=== PATIENT | male | born 1955 | race Caucasian/White ===

== ENCOUNTER 2020-11-22 05:31 | Outpatient (RCR) | payer MEDICARE ==
[~2020-11-22] VITALS: Ht 165.1 cm; Wt 95.3 kg
[~2020-11-22 05:31] MED LIST: ACET650T14 PO; AMLO-250 PO; ATOR40TA70 PO; CHOL4PAC3 PO; DAPA5TAB PO; HYDR25TA4 PO; INSU100I14 SQ; INSU100I34 SQ; LIRA0.6P3 SQ; LISI40TA9 PO; METF-478 PO
== END 2020-11-22 12:05 | disposition home or self-care (01) ==
LOC: PREOP 05:31
PROVIDERS: ATTEND Surgery
DX: Z01.812 Encounter for preprocedural laboratory examination (principal); R19.4 Change in bowel habit; R19.5 Other fecal abnormalities; Z20.822 Contact with and (suspected) exposure to COVID-19
CPT/HCPCS: 87635

== ENCOUNTER 2020-11-26 06:45 | Day surgery (SDC) | payer MEDICARE ==
[~2020-11-26] VITALS: Ht 165.1 cm; Wt 95.3 kg
[2020-11-26] MEDS ORDERED: LACTATED RINGERS 1,000 ML IV ONE (06:51)
[2020-11-26] MEDS ORDERED: PROPOFOL INJECTION 50 ML IV ONE (07:00)
[2020-11-26] MEDS ORDERED: MIDAZOLAM 2 MG/2 ML (VERSED) VIAL ONE (07:00)
[2020-11-26] MEDS ORDERED: LACTATED RINGERS 1,000 ML IV STA (07:12)
[2020-11-26 07:21] VITALS: BP 158/89
--- NOTE | 2020-11-26 07:44 | Progress Note-Pre Operative ---
Pre-Operative Progress Note H&P Reviewed The H&P was reviewed, patient examined and no changes noted. Date Seen by Provider: Nov 26, 2020 Time Seen by Provider: 07:44 Date H&P Reviewed: Nov 26, 2020 Time H&P Reviewed: 07:44 Pre-Operative Diagnosis: change in bowel habits occult + stool SHARRI ADAMS DO Nov 26, 2020 07:44
[2020-11-26 08:20] VITALS: BP 99/55
--- NOTE | 2020-11-26 08:22 | Progress Note-Post Operative ---
Post-Operative Progess Note Surgeon (s)/Plastic Welder (s) Surgeon SHARRI ADAMS DO Plastic Welder: na Pre-Operative Diagnosis change in bowel habits occult + stool Post-Operative Diagnosis diverticulosis Procedure & Operative Findings Date of Procedure 11/26/20 Procedure Performed/Findings colonoscopy Anesthesia Type per blood donor unit assistant Estimated Blood Loss Estimated blood loss (mL): none Specimens/Packing Specimens Removed na SHARRI ADAMS DO Nov 26, 2020 08:22
--- NOTE | 2020-11-26 08:24 | Discharge Inst-Simple/Standard ---
Discharge Inst-Standard Patient Instructions/Follow Up Plan of Care/Instructions/FU: repeat colonoscopy in 10 years, any issues before that be seen at that time. If family history of colon cancer need repeat in 5 years. High fiber diet. Activity as Tolerated: Yes Discharge Diet: Regular Diet (high fiber) SHARRI ADAMS DO Nov 26, 2020 08:24
[2020-11-26 08:25] VITALS: BP_SYST 100; BP_SYST 111; BP_DIAS 53; BP_DIAS 58
[2020-11-26 08:55] VITALS: BP 118/74
[2020-11-26 09:05] VITALS: BP 118/74
--- NOTE | 2020-11-26 10:57 | Anesthesia-General Post-Op ---
MAC Patient Condition Mental Status/LOC: Same as Preop Cardiovascular: Satisfactory Nausea/Vomiting: Absent Respiratory: Satisfactory Pain: Controlled Complications: Absent Post Op Complications Complications None Follow Up Care/Instructions Patient Instructions None needed. Anesthesiology Discharge Order Discharge Order Patient is doing well, no complaints, stable vital signs, no apparent adverse anesthesia problems. No complications reported per nursing. SHAWN SILVERMAN CRNA Nov 26, 2020 10:57
--- NOTE | 2020-11-26 12:55 | OPERATIVE REPORT ---
DATE OF SERVICE: 11/26/2020 PREOPERATIVE DIAGNOSIS: Change in bowel habits, occult positive stool. POSTOPERATIVE DIAGNOSIS: Diverticulosis. PROCEDURE: Colonoscopy. SURGEON: Sharri Walls DO ANESTHESIA: Per TRAFFIC ENUMERATOR. ESTIMATED BLOOD LOSS: None. COMPLICATIONS: None. INDICATIONS: The patient is a 65-year-old male with occult positive stool and some change in bowel habits. He understands risks and benefits of procedure and wished to proceed with procedure. Consent was signed in the chart. DESCRIPTION OF PROCEDURE: The patient was taken to the endoscopy suite, placed in left lateral recumbent position. Timeout was performed. A digital rectal exam was performed. There were no palpable polyps, masses or ulcerations. Scope was inserted into the rectum, advanced all the way to the cecum with minimal difficulty. Prep was adequate with lots of irrigation and suction. There were no polyps, masses or ulcerations within the cecum, ascending, transverse and descending colon. Within the sigmoid colon, minimal amount of diverticulosis was present. Scope was then continuously retracted back into the rectum where it was also retroflexed noting no other pathology. Scope was returned to its normal position, slowly withdrawn until completely removed. The patient tolerated procedure well without any complications, taken to recovery room in stable condition. RECOMMENDATIONS: The patient recommended high fiber diet. If any change in condition, he should be reevaluated at that time. Otherwise, he will need repeat colonoscopy in 10 years unless family history of colon cancer, which will then be 5 years. Job ID: [id number] DocumentID: [id number] Dictated Date: 11/26/2020 08:26:29 Buying Intern Date: 11/26/2020 12:55:03 Dictated By: SHARRI WALLS DO
== END 2020-11-26 09:05 | disposition home or self-care (01) ==
LOC: ENDO 06:45
PROVIDERS: ATTEND Surgery
DX: K57.30 Diverticulosis of large intestine without perforation or abscess without bleeding (principal); I10 Essential (primary) hypertension; E11.9 Type 2 diabetes mellitus without complications; E66.9 Obesity, unspecified; Z68.35 Body mass index [BMI] 35.0-35.9, adult; Z79.899 Other long term (current) drug therapy; Z79.4 Long term (current) use of insulin; Z88.8 Allergy status to other drugs, medicaments and biological substances

== ENCOUNTER → 2021-07-30 | Outpatient (CLI) | payer MEDICARE ==
[~2021-07-30] VITALS: Ht 165 cm; Wt 101.0 kg
[~2021-07-30] MED LIST changes: +REGADENOSON 0.4 MG/5 ML SYR (LEXISCAN) IV ONE
[2021-07-30] MEDS: CATHETER FLUSH 10 ML SYR IV PRN ×2 (12:18→13:21)
[2021-07-30 13:20] VITALS: BP 180/93
--- NOTE | 2021-07-30 15:29 | Cardiology Stress Test Report ---
Stress Test Report Date of Procedure/Referring: Date of Procedure: Jul 30, 2021 PCP Lorie Busby MD Admitting Physician Gretel Jaime DO Indications: A fib Baseline Heart Rate: 79 Baseline Blood Pressure: Blood Pressure Systolic: 180 Blood Pressure Diastolic: 93 Baseline Vitals Vital Signs Date Time Temp Pulse Resp B/P (MAP) Pulse Ox O2 Delivery O2 Flow Rate FiO2 07/30/21 13:20 97 16 180/93 (122) 98 Room Air Baseline EKG: Baseline EKG: NSR Summary After explaining the procedure to the patient, he signed a consent and then brought to the stress nuclear laboratory. Patient received 0.4 mg Lexiscan for stress test, ECG, heart rate and blood pressure were monitored continuously. Resting and stress dose of radio tracer were injected, imaging was acquired and reviewed in short axis, horizontal long axis and vertical long axis views. TID: 1.17 SSS: 7 SDS: 3 EF: 59 1. Patient tolerated Lexiscan well 2. EKG during test showed sinus rhythm with frequent atrial premature contractions. 3. Diaphragmatic attenuation with mild decrease uptake involving the mid to apical inferior wall and inferolateral wall with mild reversibility 4. Normal left ventricular size, EF 59% LORIE BUSBY MD Jul 30, 2021 15:29
== END ==
LOC: CARD 12:30
PROVIDERS: ATTEND Internal Medicine Cardiovascular Disease
DX: I48.91 Unspecified atrial fibrillation (principal); I10 Essential (primary) hypertension; I25.10 Atherosclerotic heart disease of native coronary artery without angina pectoris
CPT/HCPCS: 78452; 93017; A9502

== ENCOUNTER 2021-08-13 09:00 | Day surgery (SDC) | payer MEDICARE ==
[~2021-08-13] VITALS: Ht 165.1 cm; Wt 102.9 kg
[2021-08-13] VITALS (11 sets, daily range): BP systolic 104–180; BP diastolic 75–116
[2021-08-13 07:30] LABS: HEMATOCRIT 46 % (40-54); HEMOGLOBIN 15.1 g/dL (13.3-17.7); MEAN CORPUSCULAR HEMOGLOBIN 30 pg (25-34); MEAN CORPUSCULAR HGB CONC 33 g/dL (32-36); MEAN CORPUSCULAR VOLUME 92 fL (80-99); MEAN PLATELET VOLUME 11.5 fL (9.0-12.2); PLATELET COUNT 266 10^3/uL (130-400); WHITE BLOOD COUNT 11.8 10^3/uL (4.3-11.0)
[2021-08-13 07:39] LABS: ALBUMIN 4.1 GM/DL (3.2-4.5); POTASSIUM 4.2 MMOL/L (3.6-5.0)
[2021-08-13 07:40] LABS: CALCIUM 9.1 MG/DL (8.5-10.1)
[2021-08-13 07:41] LABS: TOTAL PROTEIN 6.9 GM/DL (6.4-8.2)
[2021-08-13 07:43] LABS: BILIRUBIN,TOTAL 0.4 MG/DL (0.1-1.0)
[2021-08-13 07:45] LABS: CREATININE SERUM 1.51 MG/DL (0.60-1.30)
--- NOTE | 2021-08-13 07:47 | Diagnostic Imaging Report ---
Indication: Hypertension. Chest pain. FINDINGS: Portable chest. The lungs are well-aerated and clear. Heart is not enlarged. No pulmonary edema or hilar adenopathy. No pneumothorax or pleural effusion. No bony abnormalities. IMPRESSION: Normal portable chest. Dictated by: Dictated on workstation # [id number]
[2021-08-13 08:15] LABS: PROTHROMBIN TIME PATIENT 13.4 SEC (12.2-14.7)
--- NOTE | 2021-08-13 08:40 | Conscious Sedation/ASA ---
Conscious Sedation Pre-Proced Time 08:40 ASA Score 3 For ASA 3 and 4: Consider anesthesia and medical clearance. Also, for patients with a history of failed moderate sedation consider anesthesia. Airway Lungs Heart ASA score ASA 1: a normal healthy patient ASA 2: a patient with a mild systemic disease (mid diabetes, controlled hypertension, obesity x ASA 3: a patient with a severe systemic disease that limits activity (angina, COPD, prior Myocardial infarction) ASA 4: a patient with an incapacitating disease that is a constant threat to life (CHF, renal failure) ASA 5: a moribund patient not expected to survive 24 hrs. (ruptured aneurysm) ASA 6: a declared brain- patient whose organs are being harvested. For emergent operations, add the letter E after the classification Mallampati Classification Grade 3 Sedation Plan Analgesia, Amnesia, Plan communicated to team members, Discussed options with patient/fam, Discussed risks with patient/fam The patient is an appropriate candidate to undergo the planned procedure, sedation, and anesthesia. The patient immediately re-assessed prior to indication. LORIE CLEMONS MD Aug 13, 2021 08:40
[~2021-08-13 09:00] MED LIST changes: +APIX5TAB PO; +DILT180C85 PO; +FURO20TA4 PO; +HEParin (CATH LAB) 2,000 ML IV ONE; +HEParin 1000 UNIT/ML (10ML VIAL) FOR BOLUS ONE; +LIDOCAINE 1% INJ 20 ML 20 ML VIAL ONE; +METO-351 PO; +MIDAZOLAM 5 MG/5 ML (VERSED) VIAL ONE; +NITRO DRIP 25000 MCG/D5W 250 ML IV ONE; +NS IV 1000 ML 1,000 ML IV SCH; +NS IV 1000 ML 1,000 ML ONE; +POTA10CA43 PO; -REGADENOSON 0.4 MG/5 ML SYR (LEXISCAN) IV ONE; +VERAPAMIL 5 MG/2 ML (CALAN) VIAL IV ONE; +fentaNYL INJ 100 MCG/2 ML AMP ONE
[2021-08-13] MEDS ORDERED: NS IV 1000 ML 1,000 ML ONE (09:09)
[2021-08-13] MEDS ORDERED: ASPIRIN 325 MG (5 GR) TABLET ONE (09:15)
[2021-08-13] MEDS ORDERED: CLOPIDOGREL 300 MG (PLAVIX) TABLET PO ONE (09:15)
--- NOTE | 2021-08-13 09:23 | Cardiac Cath Report ---
Cardiac Cath Report Physician (s)/Ply Splicer (s) Physician LORIE CLEMONS MD Pre-Procedure Diagnosis Pre-Procedure Diagnosis: Coronary artery disease Post-Procedure Note Name of Procedure: Coronary angiogram Stenting to the right coronary artery Findings/Procedure Note PROCEDURE NOTE: 66-year-old gentleman with a history of paroxysmal atrial fibrillation, hypertension, hyperlipidemia, diabetes mellitus. Had an abnormal stress test with inferior wall ischemia, scheduled for cardiac catheterization possible PTCA. After explaining the procedure to the patient, all pros and cons were explained, all questions were answered. The patient signed the consent and then he was placed on the cardiac catheterization laboratory. Groin was prepped SL fashion local anesthesia was used. Sheath placed in the right radial artery, Amberg catheter was advanced to the aorta, I was unable to cross the aortic valve, intubated the right and left coronary system, angiogram was done. Patient was noted to have severe stenosis at the mid right coronary artery and proximal LAD, I had difficulty intubating the left coronary system with the catheter from the radial approach. I exchanged the catheter and used 6 [place] FR guide. Given a total of 6000 units of heparin, BMW wire was advanced and parked in the distal right coronary artery then I proceeded with primary stenting with deployment of skypoint stent 3.5 x 15 mm postdilated with noncompliant 4.0 balloon with excellent results. Due to his borderline renal insufficiency and difficulty accessing the left coronary system from the radial approach I decided to stage the procedure and bring him back for groin access and intervention on the LAD At the end of the procedure the sheath was removed. Vascular band was used FINDINGS: Hemodynamics LV was not measured Aorta 95/61 mean of 58 ANATOMY: Left Main is free of obstructive disease Left Anterior Descending has moderate to severe lesion at the proximal LAD followed by mild aneurysmal dilatation, nonobstructive disease distally Left Circumflex has mild disease nonobstructive disease Right Coronary Artery is dominant artery with severe stenosis at the midportion successful stenting using skypoint stent 3.5 x 15 mm postdilated to 4.0 mm with noncompliant balloon CONCLUSION: 1. Severe stenosis at the mid right coronary artery with successful primary stenting using adis point stent 3.5 x 15 mm postdilated to 4.0 mm noncompliant balloon with excellent results 2. Moderate to severe stenosis in the proximal LAD followed by mild aneurysmal dilatation will be staged for later intervention 3. Mild disease in the circumflex artery DISCUSSION AND RECOMMENDATION: Patient is holding Metformin, will continue to hold and planning for intervention on the LAD at a later point preferably with a groin access. Anesthesia Type: Conscious Sedation Estimated blood loss (mL): 15 ml Contrast Amount: 59 ml Total Radiation Dose: 857 mGy Post-Procedure Diagnosis Post-operative diagnosis: Coronary artery disease Paroxysmal atrial fibrillation Hypertension Hyperlipidemia Diabetes mellitus LORIE CLEMONS MD Aug 13, 2021 09:23
[2021-08-13] MEDS ORDERED: NS IV 1000 ML 1,000 ML IV SCH (09:30)
[2021-08-13] MEDS ORDERED: PANT40SU PO (09:32)
[2021-08-13] MEDS ORDERED: METF-478 PO (09:32)
[2021-08-13] MEDS ORDERED: CLOP75TA28 PO (09:32)
[2021-08-13] MEDS ORDERED: ASPI-1238 PO (09:32)
--- NOTE | 2021-08-13 09:33 | Discharge Inst-Post CATH ---
Discharge Inst-CATH/EP Problems Reviewed?: Yes Post Cardiac Cath/EP D/C Inst Follow Up/Plan Hold Metformin for [address] Busby's office next week <b>CARDIAC CATH/EP PROCEDURE DISCHARGE INSTRUCTIONS</b> ACTIVITY * Go Home directly and rest. * Limit activity of the leg (or wrist if it was used) for 7 days including aerobics, swimming, jogging, bicycling, etc. * Restrict stair-climbing for 7 days if possible, if not, climb up with your non-cath leg, then bring together on the same step. * Avoid lifting, pushing, pulling or excessive movement of the affected extremity for 7 days. * Customary sexual activity may be resumed after 2 days-use caution not to use a position that strains or causes pain to the affected extremity. * No driving for 24 hours. * NO SMOKING. * Avoid straining for bowel movements for 7 days. * Gentle walking on level ground is allowed. * Returning to work will depend on the type of procedure and the results. Your doctor will discuss this with you. CALL YOUR DOCTOR FOR ANY OF THE FOLLOWING: *If bleeding from the puncture site occurs- Apply gentle pressure to site with clean cloth and call your doctor or EMS. * If a knot or lump forms under the skin, increases in size, or causes pain. * If bruising appears to be worsening or moving further down your leg instead of disappearing. * Temperature above 101 F. CARE OF YOUR GROIN INCISION; * Bruising or purple discoloration of the skin near the puncture site is common. * You may shower only, no bathtub bathing for 5 days. Be careful to avoid slipping as your leg may feel stiff. * If a closure device was used on your femoral artery, please see the attached guide regarding care of the device and your leg. * Leave dressing on FOR 24 hours. CARE OF YOUR WRIST INCISION; * Bruising or purple discoloration of the skin near the puncture site is common. * You may shower. * DO NOT submerge wrist. * Leave dressing on FOR 24 hours. LORIE BUSBY MD Aug 13, 2021 09:33
[2021-08-13] MEDS ORDERED: inSUlin ASPART (NovoLOG) 1 UNIT/0.01 ML (CHARGE PER UNIT) SC SCH (18:00)
[2021-08-13] MEDS ORDERED: APIXABAN 5 MG (ELIQUIS) TABLET PO SCH (21:00)
[2021-08-13] MEDS ORDERED: NON-FORMULARY MEDICATION 1 EA EA (Insulin Aspart (Novolog Flexpen) 20 UNITS) SQ SCH (21:00)
[2021-08-14] MEDS ORDERED: lisINopril 40 MG (PRINIVIL) TABLET PO SCH (09:00)
[2021-08-14] MEDS ORDERED: ASPIRIN E.C. 81 MG (ECOTRIN) TAB PO SCH (09:00)
[2021-08-14] MEDS ORDERED: FUROSEMIDE 20 MG (LASIX) TAB PO SCH (09:00)
[2021-08-14] MEDS ORDERED: NON-FORMULARY MEDICATION 1 EA EA (Dapagliflozin Propanediol (Farxiga) 5 MG) PO SCH (09:00)
[2021-08-14] MEDS ORDERED: NON-FORMULARY MEDICATION 1 EA EA (Liraglutide (Victoza 3-Pak) 1.8 MG) SQ SCH (09:00)
[2021-08-14] MEDS ORDERED: CLOPIDOGREL 75 MG (PLAVIX) TABLET PO SCH (09:00)
== END 2021-08-13 15:15 | disposition home or self-care (01) ==
LOC: CATH 09:00 → CSD 09:37 → CATH 15:15
PROVIDERS: ATTEND Internal Medicine Cardiovascular Disease
DX: I25.10 Atherosclerotic heart disease of native coronary artery without angina pectoris (principal); I48.0 Paroxysmal atrial fibrillation; I10 Essential (primary) hypertension; E78.5 Hyperlipidemia, unspecified; E11.9 Type 2 diabetes mellitus without complications; F80.9 Developmental disorder of speech and language, unspecified; Z79.899 Other long term (current) drug therapy; Z79.84 Long term (current) use of oral hypoglycemic drugs; Z79.4 Long term (current) use of insulin; Z83.3 Family history of diabetes mellitus
CPT/HCPCS: 71045; 80053; 80061; 85027; 85347; 85610; 85730; 87081; 93454; C1725; C1769; C1874; C1887; C1894; C9600; 36415

== ENCOUNTER → 2021-08-25 | Outpatient (CLI) | payer MEDICARE ==
[~2021-08-25] MED LIST changes: +ASPI-1238 PO; +CLOP75TA28 PO; -HEParin (CATH LAB) 2,000 ML IV ONE; -HEParin 1000 UNIT/ML (10ML VIAL) FOR BOLUS ONE; -LIDOCAINE 1% INJ 20 ML 20 ML VIAL ONE; -MIDAZOLAM 5 MG/5 ML (VERSED) VIAL ONE; -NITRO DRIP 25000 MCG/D5W 250 ML IV ONE; -NS IV 1000 ML 1,000 ML IV SCH; -NS IV 1000 ML 1,000 ML ONE; +PANT40SU PO; -VERAPAMIL 5 MG/2 ML (CALAN) VIAL IV ONE; -fentaNYL INJ 100 MCG/2 ML AMP ONE
== END ==
LOC: CARD 13:30
PROVIDERS: ATTEND Internal Medicine Cardiovascular Disease
DX: I11.9 Hypertensive heart disease without heart failure (principal)
CPT/HCPCS: 93306

== ENCOUNTER 2021-09-24 10:00 | Day surgery (SDC) | payer MEDICARE ==
[~2021-09-24] VITALS: Ht 165.1 cm; Wt 102.5 kg
[2021-09-24] VITALS (10 sets, daily range): BP systolic 122–169; BP diastolic 71–103
[2021-09-24 08:12] LABS: HEMATOCRIT 45 % (40-54); HEMOGLOBIN 14.6 g/dL (13.3-17.7); MEAN CORPUSCULAR HEMOGLOBIN 30 pg (25-34); MEAN CORPUSCULAR HGB CONC 33 g/dL (32-36); MEAN CORPUSCULAR VOLUME 93 fL (80-99); MEAN PLATELET VOLUME 10.9 fL (9.0-12.2); PLATELET COUNT 246 10^3/uL (130-400); WHITE BLOOD COUNT 8.9 10^3/uL (4.3-11.0)
[2021-09-24 08:13] LABS: BILIRUBIN,URINE NEGATIVE (NEGATIVE); CLARITY,URINE CLEAR; COLOR,URINE YELLOW; GLUCOSE, URINE (UA) 3+ (NEGATIVE); KETONES,URINE NEGATIVE (NEGATIVE); LEUKOCYTE ESTERASE ,URINE NEGATIVE (NEGATIVE); NITRITE,URINE NEGATIVE (NEGATIVE); PROTEIN,URINE NEGATIVE (NEGATIVE)
[2021-09-24 08:19] LABS: BACTERIA,URINE NEGATIVE /HPF; RBC,URINE RARE /HPF; SQUAMOUS EPITHELIAL CELL,UR RARE /HPF; WBC,URINE RARE /HPF
[2021-09-24 08:23] LABS: PROTHROMBIN TIME PATIENT 13.8 SEC (12.2-14.7)
[2021-09-24 08:30] LABS: ALBUMIN 4.1 GM/DL (3.2-4.5); BILIRUBIN,TOTAL 0.5 MG/DL (0.1-1.0); CALCIUM 9.2 MG/DL (8.5-10.1); CREATININE SERUM 1.34 MG/DL (0.60-1.30)
--- NOTE | 2021-09-24 08:36 | Diagnostic Imaging Report ---
Indication: Preoperative evaluation prior to coronary angioplasty. AP view of the chest is obtained with comparison made to study of 08/13/2021. FINDINGS: Heart size and pulmonary vascularity are within normal limits, and the lungs are clear, bilaterally. IMPRESSION: Unremarkable chest. Dictated by: Dictated on workstation # [id number]
--- NOTE | 2021-09-24 09:50 | Conscious Sedation/ASA ---
Conscious Sedation Pre-Proced Time 09:49 ASA Score 3 For ASA 3 and 4: Consider anesthesia and medical clearance. Also, for patients with a history of failed moderate sedation consider anesthesia. Airway Lungs Heart ASA score ASA 1: a normal healthy patient ASA 2: a patient with a mild systemic disease (mid diabetes, controlled hypertension, obesity x ASA 3: a patient with a severe systemic disease that limits activity (angina, COPD, prior Myocardial infarction) ASA 4: a patient with an incapacitating disease that is a constant threat to life (CHF, renal failure) ASA 5: a moribund patient not expected to survive 24 hrs. (ruptured aneurysm) ASA 6: a declared brain- patient whose organs are being harvested. For emergent operations, add the letter E after the classification Mallampati Classification Grade 3 Sedation Plan Analgesia, Amnesia, Plan communicated to team members, Discussed options with patient/fam, Discussed risks with patient/fam The patient is an appropriate candidate to undergo the planned procedure, sedation, and anesthesia. The patient immediately re-assessed prior to indication. LORIE CLEMONS MD Sep 24, 2021 09:50
[~2021-09-24 10:00] MED LIST changes: +DAPA10TA PO; +FURO40TA4 PO; +HEParin (CATH LAB) 2,000 ML IV ONE; +LIDOCAINE 1% INJ 20 ML 20 ML VIAL ONE; +NS IV 1000 ML 1,000 ML IV SCH; +PANT40TA52 PO; +POTA-51 PO
[2021-09-24] MEDS ORDERED: fentaNYL INJ 100 MCG/2 ML AMP ONE (11:18)
[2021-09-24] MEDS ORDERED: VERAPAMIL 5 MG/2 ML (CALAN) VIAL IV ONE (11:18)
[2021-09-24] MEDS ORDERED: MIDAZOLAM 5 MG/5 ML (VERSED) VIAL ONE (11:19)
[2021-09-24] MEDS ORDERED: NITRO DRIP 25000 MCG/D5W 250 ML IV ONE (11:19)
[2021-09-24] MEDS ORDERED: HEParin 1000 UNIT/ML (10ML VIAL) FOR BOLUS ONE (11:19)
[2021-09-24] MEDS ORDERED: ADENOSINE 90 MG/30 ML (ADENOSCAN) VIAL IV ONE (11:49)
[2021-09-24] MEDS ORDERED: CLOPIDOGREL 300 MG (PLAVIX) TABLET PO ONE (12:14)
[2021-09-24] MEDS ORDERED: ASPIRIN 325 MG (5 GR) TABLET ONE (12:14)
[2021-09-24] MEDS ORDERED: METF-478 PO (12:23)
--- NOTE | 2021-09-24 12:24 | Discharge Inst-Post CATH ---
Discharge Inst-CATH/EP Problems Reviewed?: Yes Post Cardiac Cath/EP D/C Inst Follow Up/Plan Hold Metformin for [address] Busby's office in 2 to 4 weeks <b>CARDIAC CATH/EP PROCEDURE DISCHARGE INSTRUCTIONS</b> ACTIVITY * Go Home directly and rest. * Limit activity of the leg (or wrist if it was used) for 7 days including aerobics, swimming, jogging, bicycling, etc. * Restrict stair-climbing for 7 days if possible, if not, climb up with your non-cath leg, then bring together on the same step. * Avoid lifting, pushing, pulling or excessive movement of the affected extremity for 7 days. * Customary sexual activity may be resumed after 2 days-use caution not to use a position that strains or causes pain to the affected extremity. * No driving for 24 hours. * NO SMOKING. * Avoid straining for bowel movements for 7 days. * Gentle walking on level ground is allowed. * Returning to work will depend on the type of procedure and the results. Your doctor will discuss this with you. CALL YOUR DOCTOR FOR ANY OF THE FOLLOWING: *If bleeding from the puncture site occurs- Apply gentle pressure to site with clean cloth and call your doctor or EMS. * If a knot or lump forms under the skin, increases in size, or causes pain. * If bruising appears to be worsening or moving further down your leg instead of disappearing. * Temperature above 101 F. CARE OF YOUR GROIN INCISION; * Bruising or purple discoloration of the skin near the puncture site is common. * You may shower only, no bathtub bathing for 5 days. Be careful to avoid slipping as your leg may feel stiff. * If a closure device was used on your femoral artery, please see the attached guide regarding care of the device and your leg. * Leave dressing on FOR 24 hours. CARE OF YOUR WRIST INCISION; * Bruising or purple discoloration of the skin near the puncture site is common. * You may shower. * DO NOT submerge wrist. * Leave dressing on FOR 24 hours. LORIE BUSBY MD Sep 24, 2021 12:24
--- NOTE | 2021-09-24 12:29 | Cardiac Cath Report ---
Cardiac Cath Report Physician (s)/Quality Systems Manager (s) Physician LORIE CLEMONS MD Pre-Procedure Diagnosis Pre-Procedure Diagnosis: Coronary artery disease Post-Procedure Note Procedure Start Date: Sep 24, 2021 Name of Procedure: Left heart catheterization FFR to the LAD Primary stenting to the proximal LAD Findings/Procedure Note PROCEDURE NOTE: 66 years old gentleman with history of coronary artery disease underwent stenting to the right coronary artery, had a borderline lesion in the LAD, due to his underlying renal insufficiency I decided to stage the procedure and bring him back for FFR and possible stenting of the LAD. After explaining the procedure to the patient, all pros and cons were explained, all questions were answered. The patient signed the consent and then he was placed on the cardiac catheterization laboratory. Groin was prepped SL fashion local anesthesia was used. Sheath placed in the right radial artery, EBU guide was advanced to the left system, FFR was advanced and measured across the LAD, at baseline it was 0.88 and after less than 30 sec of starting adenosine drip it was 0.78. I proceeded with primary stenting using skypoint stent 3 x 23 deployed under 15 ricky up to 3.1 with excellent results. FFR post intervention was 0.94 Catheter was exchanged and I advanced right coronary diagnostic catheter and 1 injection reevaluated the right coronary artery. At the end of the procedure the sheath was removed. Vascular band was used FINDINGS: Hemodynamics LV was not measured Aorta 118/87 mean of 73 ANATOMY: Left Main is free of obstructive disease Left Anterior Descending has severe stenosis proximally confirmed by FFR, successful primary stenting using skypoint stent 3 x 23 expanded to 3.1 mm with excellent results, mild disease in the distal LAD Left Circumflex has mild disease nonobstructive disease Right Coronary Artery has a patent stent with mild disease nonobstructive disease CONCLUSION: 1. Severe stenosis in the proximal LAD with successful primary stenting using skypoint stent 3 x 23 expanded to 3.1 with excellent results 2. Patent stent in the mid right coronary artery with mild disease distally DISCUSSION AND RECOMMENDATION: Continue on aspirin, Plavix and Eliquis for another 4 to 6 weeks then stopping aspirin continue on Plavix and Eliquis Anesthesia Type: Conscious Sedation Estimated blood loss (mL): 15 ml Contrast Amount: 55 ml Total Radiation Dose: 484 mGy Post-Procedure Diagnosis Post-operative diagnosis: Chest pain Coronary artery disease Hypertension Hyperlipidemia LORIE CLEMONS MD Sep 24, 2021 12:29
[2021-09-24] MEDS ORDERED: NON-FORMULARY MEDICATION 1 EA EA (Liraglutide (Victoza 3-Pak) 1.8 MG) SQ SCH (12:30)
[2021-09-24] MEDS ORDERED: NS IV 1000 ML 1,000 ML IV SCH (12:30)
[2021-09-24] MEDS ORDERED: inSUlin ASPART (NovoLOG) 1 UNIT/0.01 ML (CHARGE PER UNIT) SQ SCH (21:00)
[2021-09-24] MEDS ORDERED: APIXABAN 5 MG (ELIQUIS) TABLET PO SCH (21:00)
[2021-09-25] MEDS ORDERED: KCL 20 MEQ TAB (K-DUR) PO SCH (07:00)
[2021-09-25] MEDS ORDERED: lisINopril 40 MG (PRINIVIL) TABLET PO SCH (09:00)
[2021-09-25] MEDS ORDERED: CLOPIDOGREL 75 MG (PLAVIX) TABLET PO SCH ×2 (09:00)
[2021-09-25] MEDS ORDERED: PANTOPRAZOLE 40 MG (PROTONIX) TAB PO SCH (09:00)
[2021-09-25] MEDS ORDERED: NON-FORMULARY MEDICATION 1 EA EA (Dapagliflozin Propanediol (Farxiga) 10 MG) PO SCH (09:00)
[2021-09-25] MEDS ORDERED: FUROSEMIDE 40 MG (LASIX) TAB PO SCH (09:00)
[2021-09-25] MEDS ORDERED: ASPIRIN E.C. 81 MG (ECOTRIN) TAB PO SCH (09:00)
== END 2021-09-24 18:15 | disposition home or self-care (01) ==
LOC: CATH 10:00 → CSD 12:30 → CATH 18:15
PROVIDERS: ATTEND Internal Medicine Cardiovascular Disease
DX: I25.10 Atherosclerotic heart disease of native coronary artery without angina pectoris (principal); I10 Essential (primary) hypertension; E78.5 Hyperlipidemia, unspecified; E11.9 Type 2 diabetes mellitus without complications; I48.0 Paroxysmal atrial fibrillation; R60.0 Localized edema; F80.9 Developmental disorder of speech and language, unspecified; Z79.899 Other long term (current) drug therapy; Z79.02 Long term (current) use of antithrombotics/antiplatelets; Z79.84 Long term (current) use of oral hypoglycemic drugs; Z79.4 Long term (current) use of insulin; Z82.49 Family history of ischemic heart disease and other diseases of the circulatory system
CPT/HCPCS: 71045; 80053; 80061; 81000; 85027; 85610; 85730; 87081; 93454; 93571; C1769; C1874; C1887; C1894; C9600; 36415

== ENCOUNTER → 2021-11-19 | Day surgery (SDC) | payer MEDICARE ==
[~2021-11-19] MED LIST changes: -HEParin (CATH LAB) 2,000 ML IV ONE; -LIDOCAINE 1% INJ 20 ML 20 ML VIAL ONE; +NS IV 1000 ML 0 ML ONE
== END ==
LOC: CATH 09:30
PROVIDERS: ATTEND Internal Medicine Cardiovascular Disease
DX: I48.19 Other persistent atrial fibrillation (principal); I25.10 Atherosclerotic heart disease of native coronary artery without angina pectoris; R60.0 Localized edema; I10 Essential (primary) hypertension; E78.5 Hyperlipidemia, unspecified; E11.9 Type 2 diabetes mellitus without complications; F80.9 Developmental disorder of speech and language, unspecified; Z79.02 Long term (current) use of antithrombotics/antiplatelets; Z79.01 Long term (current) use of anticoagulants; Z79.82 Long term (current) use of aspirin; Z79.899 Other long term (current) drug therapy; Z95.5 Presence of coronary angioplasty implant and graft; Z79.4 Long term (current) use of insulin; Z79.84 Long term (current) use of oral hypoglycemic drugs; Z53.8 Procedure and treatment not carried out for other reasons
CPT/HCPCS: 87081; 93005

== ENCOUNTER 2022-02-20 14:55 | Emergency (ER) | payer MEDICARE ==
[~2022-02-20] VITALS: Ht 165.1 cm; Wt 104.3 kg
[~2022-02-20 14:55] MED LIST changes: -NS IV 1000 ML 0 ML ONE; -NS IV 1000 ML 1,000 ML IV SCH
--- NOTE | 2022-02-20 15:25 | ED Abdominal Pain ---
General Stated Complaint: UNABLE TO URINATE Source of Information: Patient Exam Limitations: No Limitations History of Present Illness Date Seen by Provider: Feb 20, 2022 Time Seen by Provider: 14:57 Initial Comments 66-year-old male with past medical history of diabetes, CAD with stenting coming in due to lower abdominal distention and difficulty urinating. He says he has had difficulty urinating for a couple of days, and he is only able to get little dribbles out at a time. He says he has to attempt to going to the bathroom at least every hour, sometimes more just to get a little bit a urine out of the t pita so that he feels more comfortable. He says he is never had a Kay catheter. He says he takes sekf-xav-[id number] medicines for prostate, but no prescription medicines. Denies any fever, chest pain, shortness of breath, vomiting, diarrhea, or any other concerns. Last had a bowel movement this morning which was small. Allergies and Home Medications Allergies Coded Allergies: phenytoin (Unverified Allergy, Unknown, 11/19/20) Patient Home Medication List Home Medication List Reviewed: Yes Apixaban (Eliquis) 5 Mg Tablet, 5 MG PO BID, (Reported) Entered as Reported by: QUETA INTERIANO on 09/24/21835 Aspirin (Aspirin EC) 81 Mg Tablet.dr, 81 MG PO DAILY, (Reported) Entered as Reported by: QUETA INTERIANO on 09/24/21835 Atorvastatin Calcium (Atorvastatin Calcium) 40 Mg Tablet, 40 MG PO HS, (Reported) Entered as Reported by: STANLEY TRIMBLE on 11/19/20 1312 Clopidogrel Bisulfate (Clopidogrel) 75 Mg Tablet, 75 MG PO DAILY, (Reported) Entered as Reported by: QUETA INTERIANO on 09/24/21835 Dapagliflozin Propanediol (Farxiga) 10 Mg Tablet, 10 MG PO DAILY, (Reported) Entered as Reported by: QUETA INTERIANO on 09/24/21835 Diltiazem HCl (Diltiazem 24Hr ER) 180 Mg Cap.er.24h, 180 MG PO DAILY, (Reported) Entered as Reported by: EDITH VASQUEZ on 08/13/21 0749 Furosemide (Furosemide) 40 Mg Tablet, 40 MG PO DAILY, (Reported) Entered as Reported by: QUETA INTERIANO on 1/5/22 0836 Insulin Aspart (Novolog Flexpen) 300 Units/3 Ml Solution, 20 UNITS SQ BID, (Reported) Entered as Reported by: STANLEY TRIMBLE on 11/19/20 1312 Insulin Glargine,Hum.rec.anlog (Basaglar Kwikpen U-100) 100 Unit/1 Ml Insuln.pen, 48 UNIT SQ DAILY, (Reported) Entered as Reported by: STANLEY TRIMBLE on 11/19/20 1312 Liraglutide (Victoza 3-Leonardo) 0.6 Mg/0.1 Ml Pen.injctr, 1.8 MG SQ 1800 W/DINNER, (Reported) Entered as Reported by: STANLEY TRIMBLE on 11/19/20 1312 Lisinopril (Lisinopril) 40 Mg Tablet, 40 MG PO DAILY, (Reported) Entered as Reported by: STANLEY TRIMBLE on 11/19/20 1312 Metformin HCl (Metformin HCl ER) 500 Mg Tab.er.24, 1,000 MG PO BID Prescribed by: LORIE CLEMONS on 09/24/21 1223 Metoprolol Succinate (Toprol Xl) 25 Mg Tab.er.24h, 25 MG PO DAILY, (Reported) Entered as Reported by: EDITH VASQUEZ on 08/13/21 0749 Pantoprazole Sodium (Pantoprazole Sodium) 40 Mg Tablet.dr, 40 MG PO DAILY, (Reported) Entered as Reported by: QUETA INTERIANO on 09/24/21 0836 Potassium Chloride (Potassium Chloride) 20 Meq Tablet.er, 20 MEQ PO DAILY, (Reported) Entered as Reported by: QUETA INTERIANO on 09/24/21 0836 Review of Systems Review of Systems Constitutional: No chills, No fever EENTM: No Blurred Vision Respiratory: Denies Cough Cardiovascular: Denies Chest Pain Gastrointestinal: Abdomen Distended Genitourinary: Frequency, Pain Musculoskeletal: no symptoms reported Skin: no symptoms reported Psychiatric/Neurological: No Symptoms Reported Endocrine: No Symptoms Reported Hematologic/Lymphatic: No Symptoms Reported All Other Systems Reviewed Negative Unless Noted: Yes Past Zkxpneu-Zhuwxp-Tydfbw Hx Patient Social History Tobacco Use?: No Immunizations Up To Date Tetanus Booster (TDap): Unknown Seasonal Allergies Seasonal Allergies: No Past Medical History Surgeries: Yes (BLOOD CLOT RT EYE/BACK CYST/KNEE SCOPE/LT ARM R/T STAPH INFECT.) Coronary Stent, Orthopedic Respiratory: No Currently Using CPAP: No Currently Using BIPAP: No Cardiac: No Atrial Fibrillation, High Cholesterol, Hypertension Neurological: No Genitourinary: No Gastrointestinal: No Musculoskeletal: No Endocrine: Yes Diabetes, Insulin dep HEENT: Yes (DIABETIC RETINOPATHY) Macular Degeneration Loss of Vision: Denies Hearing Impairment: Denies Cancer: No Psychosocial: No Integumentary: No Blood Disorders: No Adverse Reaction/Blood Tranf: No Physical Exam Vital Signs Vital Signs - First Documented 02/20/22 15:11 Temp 37.8 Pulse 117 Resp 20 B/P (MAP) 198/118 (144) Pulse Ox 94 O2 Delivery Room Air Capillary Refill : Height/Weight/BMI Height: '" Weight: lbs. oz. kg; 37.60 BMI Method: General Appearance: WD/WN, no apparent distress HEENT: PERRL/EOMI, normal ENT inspection, pharynx normal Neck: non-tender, full range of motion, supple, normal inspection Respiratory: chest non-tender, lungs clear, normal breath sounds, no respiratory distress, no accessory muscle use Cardiovascular: no edema, no murmur, tachycardia Gastrointestinal: normal bowel sounds, soft; No guarding, No rebound; tenderness, other (Suprapubic fullness and tenderness) Extremities: normal range of motion, non-tender, normal inspection, no pedal edema, no calf tenderness, normal capillary refill Back: normal inspection, no CVA tenderness Neurologic/Psychiatric: no motor/sensory deficits, alert, normal mood/affect Skin: normal color, warm/dry Lymphatic: no adenopathy Progress/Results/Core Measures Results/Orders Lab Results Laboratory Tests Test 02/20/22 15:25 Range/Units Urine Color YELLOW Urine Clarity SL CLOUDY Urine pH 7.0 5-9 Urine Specific [place] 1.010 L 1.016-1.022 Urine Protein 1+ H NEGATIVE Urine Glucose (UA) 3+ H NEGATIVE Urine Ketones NEGATIVE NEGATIVE Urine Nitrite NEGATIVE NEGATIVE Urine Bilirubin NEGATIVE NEGATIVE Urine Urobilinogen 0.2 < = 1.0 MG/DL Urine Leukocyte Esterase TRACE H NEGATIVE Urine RBC (Auto) 2+ H NEGATIVE Urine RBC 25-50 H /HPF Urine WBC >100 H /HPF Urine Squamous Epithelial Cells 2-5 /HPF Urine Crystals NONE /LPF Urine Bacteria MODERATE H /HPF Urine Casts NONE /LPF Urine Mucus NEGATIVE /LPF Urine Culture Indicated YES My Orders Orders - DEMETRIO MELCHOR MD Ua Culture If Indicated (02/20/22 15:22) Catheter(Urinary) Insert & Ass 03,15 (02/20/22 15:22) Urine Culture (02/20/22 15:25) Ceftriaxone 1 Gm Pre-Mix (Rocephin 1 Gm (02/20/22 16:00) Ns Iv 1000 Ml (Sodium Chloride 0.9%) (02/20/22 15:51) Medications Given in ED Current Medications Medications Dose Ordered Sig/Nallely Route Start Time Stop Time Status Last Admin Dose Admin Ceftriaxone Sodium/Dextrose 50 ml @ 100 mls/hr ONCE ONCE IV 02/20/22 16:00 02/20/22 16:29 02/20/22 16:01 100 MLS/HR Vital Signs/I&O 02/20/22 15:11 Temp 37.8 Pulse 117 Resp 20 B/P (MAP) 198/118 (144) Pulse Ox 94 O2 Delivery Room Air Progress Progress Note : Progress Note 66-year-old male with above history coming in due to difficulty urinating. ABCs were intact on presentation. He was tachycardic in A. fib with RVR to the 130s on presentation. [id number] ultrasound done by me showing significant bladder distention despite him trying to urinate. Kay catheter was placed and his heart rate came down nicely. Urinalysis concerning for infection with greater than 100 whites which I am concerned could be pyelonephritis. He was given a dose of ceftriaxone followed by a liter of normal saline. Vitals have normalized and he feels significantly better. I will have him follow-up with Dr. Marina as an outpatient. I believe he stable for discharge with outpatient follow-up. He was sent home with strict return precautions Departure Impression Primary Impression: Urinary retention Additional Impressions: Kay catheter in place Pyelonephritis Disposition: HOME, SELF-CARE Condition: Stable Departure-Patient Inst. Referrals: [facility] SPARKS DO (PCP/Family) Primary Care Physician MEGAN MARINA MD Patient Instructions: Kidney Infection (DC), How to Care for Your Kay Catheter, Male Add. Discharge Instructions: Please follow-up with Dr. Marina. Call his office on Wednesday to schedule an appointment as soon as possible. Regularly drain the urine out of the Kay bag. He will take antibiotics twice a day for the next 10 days. If in the next couple days you are having fevers, significant abdominal pain, or you have symptoms where you feel like you just have the flu and feel very sick, I would want you to come back to the ER. Scripts Ondansetron (Ondansetron Odt) 4 Mg Tab.rapdis 4 MG PO Q6H PRN for NAUSEA/VOMITING-1ST LINE for 5 Days, #20 TAB Prov: DEMETRIO MELCHOR MD 02/20/22 Cefdinir (Cefdinir) 300 Mg Capsule 300 MG PO BID for 10 Days, #20 CAP 0 Refills Prov: DEMETRIO MELCHOR MD 02/20/22 Work/School Note: Work Release Form Date Seen in the Emergency Department: Feb 20, 2022 Return to Work: Feb 22, 2022 Restrictions: No Restrictions DEMETRIO MELCHOR MD Feb 20, 2022 15:24
[2022-02-20 15:35] LABS: BILIRUBIN,URINE NEGATIVE (NEGATIVE); CLARITY,URINE SL CLOUDY; COLOR,URINE YELLOW; GLUCOSE, URINE (UA) 3+ (NEGATIVE); KETONES,URINE NEGATIVE (NEGATIVE); LEUKOCYTE ESTERASE ,URINE TRACE (NEGATIVE); NITRITE,URINE NEGATIVE (NEGATIVE); PROTEIN,URINE 1+ (NEGATIVE)
[2022-02-20 15:44] LABS: BACTERIA,URINE MODERATE /HPF; RBC,URINE 25-50 /HPF; WBC,URINE >100 /HPF
[2022-02-20] MEDS ORDERED: NS IV 1000 ML 1,000 ML IV STA (15:51)
[2022-02-20] MEDS ORDERED: cefTRIAXone 1 GM PRE-MIX 50 ML IV ONE (16:00)
[2022-02-20] MEDS ORDERED: CEFD300C3 PO (16:13)
[2022-02-20] MEDS ORDERED: ONDA4TAB11 PO (16:13)
[2022-02-20 17:02] VITALS: BP 175/106
[2022-02-24] MEDS ORDERED: CLOP75TA69 PO (10:21)
[2022-02-24] MEDS ORDERED: TMSL.4C PO (10:23)
[2022-02-24] MEDS ORDERED: INSU100I14 SQ (10:23)
[2022-02-24] MEDS ORDERED: AMLO-250 PO (10:23)
[2022-02-24] MEDS ORDERED: FURO40TA4 PO (10:23)
[2022-02-24] MEDS ORDERED: FINA5TAB6 PO (10:23)
[2022-02-24] MEDS ORDERED: INSU100I34 SQ (10:23)
== END 2022-02-20 17:02 | disposition home or self-care (01) ==
LOC: EDUNIT# 14:55 → ER 14:56
DX: N12 Tubulo-interstitial nephritis, not specified as acute or chronic (principal); I48.91 Unspecified atrial fibrillation; E11.319 Type 2 diabetes mellitus with unspecified diabetic retinopathy without macular edema; Z79.4 Long term (current) use of insulin; Z96.0 Presence of urogenital implants
CPT/HCPCS: 51702; 81000; 87077; 87088; 87186

== ENCOUNTER 2022-02-21 15:38 | Inpatient (IN) | payer MEDICARE ==
[~2022-02-21] VITALS: Ht 175 cm; Wt 105.0 kg
[~2022-02-21 15:38] MED LIST changes: +CEFD300C3 PO; +ONDA4TAB11 PO
[2022-02-21] MEDS ORDERED: NS IV 1000 ML 1,000 ML IV STA ×3 (16:42→18:59)
--- NOTE | 2022-02-21 17:09 | ED GU-Male ---
General Chief Complaint: - Reproductive Stated Complaint: UTI SYMPTOMS Nursing Triage Note: pt states he was seen here yesterday afternoon for uti s/s. cc today is pt is unable to care for himself at home, fell and had a bm in his pants, no strength to do anything. Source: patient Exam Limitations: no limitations History of Present Illness Date Seen by Provider: Feb 21, 2022 Time Seen by Provider: 17:07 Initial Comments Patient is a 66-year-old male with a history of diabetes, coronary artery disease with stenting who presents to ED with body aches, fatigue and generalized weakness. Symptoms over the past 2 to 3 days. Patient was seen here yesterday for lower abdominal distention and difficulty urinating. Had a indwelling catheter placed and discharged with cefdinir. He denies history of Kay catheter in the place. He is producing urine at home. He states he taking [id number]-dwq-uowqowr medication for prostate. Denies history of prostate cancer. Denies of any chest pain, current abdominal pain, headache, dizziness. States he does feel weak and did vomit few days ago Allergies and Home Medications Allergies Coded Allergies: phenytoin (Unverified Allergy, Unknown, 11/19/20) Patient Home Medication List Home Medication List Reviewed: Yes Apixaban (Eliquis) 5 Mg Tablet, 5 MG PO BID, (Reported) Entered as Reported by: QUETA INTERIANO on 09/24/21835 Aspirin (Aspirin EC) 81 Mg Tablet.dr, 81 MG PO DAILY, (Reported) Entered as Reported by: QUETA INTERIANO on 09/24/21835 Atorvastatin Calcium (Atorvastatin Calcium) 40 Mg Tablet, 40 MG PO HS, (Reported) Entered as Reported by: STANLEY TRIMBLE on 11/19/20 1312 Cefdinir (Cefdinir) 300 Mg Capsule, 300 MG PO BID Prescribed by: DEMETRIO MELCHOR on 02/20/22 1613 Clopidogrel Bisulfate (Clopidogrel) 75 Mg Tablet, 75 MG PO DAILY, (Reported) Entered as Reported by: QUETA INTERIANO on 09/24/21835 Dapagliflozin Propanediol (Farxiga) 10 Mg Tablet, 10 MG PO DAILY, (Reported) Entered as Reported by: QUETA INTERIANO on 09/24/21835 Diltiazem HCl (Diltiazem 24Hr ER) 180 Mg Cap.er.24h, 180 MG PO DAILY, (Reported) Entered as Reported by: EDITH VASQUEZ on 08/13/21 0749 Furosemide (Furosemide) 40 Mg Tablet, 40 MG PO DAILY, (Reported) Entered as Reported by: QUETA INTERIANO on 09/24/21 0836 Insulin Aspart (Novolog Flexpen) 300 Units/3 Ml Solution, 20 UNITS SQ BID, (Re ported) Entered as Reported by: STANLEY TRIMBLE on 11/19/20 1312 Insulin Glargine,Hum.rec.anlog (Basaglar Kwikpen U-100) 100 Unit/1 Ml Insuln.pen, 48 UNIT SQ DAILY, (Reported) Entered as Reported by: STANLEY TRIMBLE on 11/19/20 1312 Liraglutide (Victoza 3-Leonardo) 0.6 Mg/0.1 Ml Pen.injctr, 1.8 MG SQ 1800 W/DINNER, (Reported) Entered as Reported by: STANLEY TRIMBLE on 11/19/20 1312 Lisinopril (Lisinopril) 40 Mg Tablet, 40 MG PO DAILY, (Reported) Entered as Reported by: STANLEY TRIMBLE on 11/19/20 1312 Metformin HCl (Metformin HCl ER) 500 Mg Tab.er.24, 1,000 MG PO BID Prescribed by: LORIE CLEMONS on 09/24/21 1223 Metoprolol Succinate (Toprol Xl) 25 Mg Tab.er.24h, 25 MG PO DAILY, (Reported) Entered as Reported by: EDITH VASQUEZ on 08/13/21 0749 Ondansetron (Ondansetron Odt) 4 Mg Tab.rapdis, 4 MG PO Q6H PRN for NAUSEA/VOMITING-1ST LINE Prescribed by: DEMETRIO MELCHOR on 02/20/22 1613 Pantoprazole Sodium (Pantoprazole Sodium) 40 Mg Tablet.dr, 40 MG PO DAILY, (Reported) Entered as Reported by: QUETA INTERIANO on 09/24/2136 Potassium Chloride (Potassium Chloride) 20 Meq Tablet.er, 20 MEQ PO DAILY, (Reported) Entered as Reported by: QUETA INTERIANO on 09/24/21835 Review of Systems Review of Systems Constitutional: chills, malaise, weakness EENTM: No blurred vision, No double vision Respiratory: No cough, No orthopnea, No short of breath Cardiovascular: No chest pain, No edema Gastrointestinal: No abdominal pain, No diarrhea; nausea, vomiting Genitourinary: denies burning; dysuria, incontinence Musculoskeletal: No back pain, No joint pain Skin: No change in color, No change in hair/nails All Other Systemes Reviewed Negative Unless Noted: Yes Past Civqpon-Zcwzii-Qkqyko Hx Patient Social History Tobacco Use?: No Substance use?: No Alcohol Use?: No Immunizations Up To Date Tetanus Booster (TDap): Unknown First/Initial COVID19 Vaccinat: 09/18/20 Second COVID19 Vaccination Blake: 10/09/20 Third COVID19 Vaccination Date: 09/18/20 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: [employer] Seasonal Allergies Seasonal Allergies: No Past Medical History Surgery/Hospitalization HX: eye bi lat, mrsa surgery on lt arm I&D Surgeries: Yes (BLOOD CLOT RT EYE/BACK CYST/KNEE SCOPE/LT ARM R/T STAPH INFECT.) Coronary Stent, Orthopedic Respiratory: No Currently Using CPAP: No Currently Using BIPAP: No Cardiac: No Atrial Fibrillation, High Cholesterol, Hypertension Neurological: No Genitourinary: No Gastrointestinal: No Musculoskeletal: No Endocrine: Yes Diabetes, Insulin dep HEENT: Yes (DIABETIC RETINOPATHY) Macular Degeneration Loss of Vision: Denies Hearing Impairment: Denies Cancer: No Psychosocial: No Integumentary: No Blood Disorders: No Adverse Reaction/Blood Tranf: No Physical Exam Vital Signs Vital Signs - First Documented 02/21/22 15:54 Temp 35.6 Pulse 70 Resp 18 B/P (MAP) 94/56 (69) Pulse Ox 95 O2 Delivery Room Air Capillary Refill : Less Than 3 Seconds Height, Weight, BMI Height: '" Weight: lbs. oz. kg; 37.00 BMI Method: General Appearance: WD/WN, mild distress HEENT: PERRL/EOMI, normal ENT inspection, TMs normal, pharynx normal Neck: non-tender, full range of motion, supple, normal inspection Cardiovascular: regular rate, rhythm, no edema, no gallop Respiratory: chest non-tender, lungs clear, normal breath sounds, no respiratory distress Gastrointestinal: normal bowel sounds, non tender, soft, no organomegaly, no pulsatile mass Extremities: normal range of motion, non-tender, normal inspection, no pedal edema Neurologic/Psychiatric: blending tank tender helper II-XII nml as tested, no motor/sensory deficits, alert, normal mood/affect, oriented x 3 Skin: normal color Focused Exam Lactate Level 02/21/22 17:15: Lactic Acid Level 2.12*H Lactic Acid Level Laboratory Tests Test 02/21/22 17:15 Lactic Acid Level 2.12 MMOL/L (0.50-2.00) *H Progress/Results/Core Measures Suspected Sepsis SIRS Temperature: Pulse: 70 Respiratory Rate: 18 Laboratory Tests 02/21/22 17:05: White Blood Count 26.8H Blood Pressure 94 /56 Mean: 69 02/21/22 17:15: Lactic Acid Level 2.12*H Laboratory Tests 02/21/22 17:05: Creatinine 2.46H, Platelet Count 200, Total Bilirubin 0.5 Results/Orders Lab Results Laboratory Tests Test 02/21/22 17:05 02/21/22 17:15 Range/Units White Blood Count 26.8 H 4.3-11.0 10^3/uL Red Blood Count 4.23 L 4.30-5.52 10^6/uL Hemoglobin 13.0 L 13.3-17.7 g/dL Hematocrit 39 L 40-54 % Mean Corpuscular Volume 93 80-99 fL Mean Corpuscular Hemoglobin 31 25-34 pg Mean Corpuscular Hemoglobin Concent 33 32-36 g/dL Red Cell Distribution Width 14.2 10.0-14.5 % Platelet Count 200 130-400 10^3/uL Mean Platelet Volume 12.0 9.0-12.2 fL Immature Granulocyte % (Auto) 2 % Neutrophils (%) (Auto) 87 H 42-75 % Lymphocytes (%) (Auto) 5 L 12-44 % Monocytes (%) (Auto) 6 0-12 % Eosinophils (%) (Auto) 0 0-10 % Basophils (%) (Auto) 0 0-10 % Neutrophils # (Auto) 23.3 H 1.8-7.8 10^3/uL Lymphocytes # (Auto) 1.4 1.0-4.0 10^3/uL Monocytes # (Auto) 1.7 H 0.0-1.0 10^3/uL Eosinophils # (Auto) 0.0 0.0-0.3 10^3/uL Basophils # (Auto) 0.1 0.0-0.1 10^3/uL Immature Granulocyte # (Auto) 0.4 H 0.0-0.1 10^3/uL Neutrophils % (Manual) 90 % Lymphocytes % (Manual) 5 % Monocytes % (Manual) 5 % Polychromasia MODERATE Serg Cells MODERATE Elliptocytes MODERATE Urine Color YELLOW Urine Clarity CLEAR Urine pH 5.5 5-9 Urine Specific [place] 1.010 L 1.016-1.022 Urine Protein NEGATIVE NEGATIVE Urine Glucose (UA) 3+ H NEGATIVE Urine Ketones NEGATIVE NEGATIVE Urine Nitrite NEGATIVE NEGATIVE Urine Bilirubin NEGATIVE NEGATIVE Urine Urobilinogen 0.2 < = 1.0 MG/DL Urine Leukocyte Esterase NEGATIVE NEGATIVE Urine RBC (Auto) 2+ H NEGATIVE Urine RBC NONE /HPF Urine WBC 5-10 H /HPF Urine Squamous Epithelial Cells 0-2 /HPF Urine Renal Epithelial Cells NONE /HPF Urine Crystals NONE /LPF Urine Bacteria FEW H /HPF Urine Casts NONE /LPF Urine Mucus NEGATIVE /LPF Urine Culture Indicated YES Sodium Level 134 L 135-145 MMOL/L Potassium Level 4.2 3.6-5.0 MMOL/L Chloride Level 101 98-107 MMOL/L Carbon Dioxide Level 19 L 21-32 MMOL/L Anion Gap 14 5-14 MMOL/L Blood Urea Nitrogen 29 H 7-18 MG/DL Creatinine 2.46 H 0.60-1.30 MG/DL Estimat Glomerular Filtration Rate 28 BUN/Creatinine Ratio 12 Glucose Level 357 H 70-105 MG/DL Calcium Level 8.9 8.5-10.1 MG/DL Corrected Calcium 9.5 8.5-10.1 MG/DL Total Bilirubin 0.5 0.1-1.0 MG/DL Aspartate Amino Transf (AST/SGOT) 35 H 5-34 U/L Alanine Aminotransferase (ALT/SGPT) 25 0-55 U/L Alkaline Phosphatase 61 40-136 U/L C-Reactive Protein High Sensitivity 34.94 H 0.00-0.50 MG/DL Total Protein 6.1 L 6.4-8.2 GM/DL Albumin 3.3 3.2-4.5 GM/DL Lipase 59 8-78 U/L Beta-Hydroxybutyrate (Chem panel) 0.57 H 0.00-0.27 MMOL/L Lactic Acid Level 2.12 *H 0.50-2.00 MMOL/L My Orders Orders - CUNHA,DEMETRIO A PA Cbc With Automated Diff (02/21/22 16:42) Comprehensive Metabolic Panel (02/21/22 16:42) Lipase (02/21/22 16:42) Ns Iv 1000 Ml (Sodium Chloride 0.9%) (02/21/22 16:42) Lactic Acid Analyzer (02/21/22 17:02) Blood Culture (02/21/22 17:02) Cefepime Injection (Maxipime Injection) (02/21/22 17:15) Hs C Reactive Protein (02/21/22 17:02) Blood Culture (02/21/22 17:14) Manual Differential (02/21/22 17:05) Ns Iv 1000 Ml (Sodium Chloride 0.9%) (02/21/22 17:28) Ct Abdomen/Pelvis Wo (02/21/22 17:50) Beta Hydroxybutyrate (02/21/22 17:51) Accucheck Stat ONCE (02/21/22 18:31) Medications Given in ED Current Medications Medications Dose Ordered Sig/Nallely Route Start Time Stop Time Status Last Admin Dose Admin Cefepime HCl 1000 mg/Sodium Chloride 50 ml @ 100 mls/hr ONCE ONCE IV 02/21/22 17:15 02/21/22 17:44 DC 02/21/22 17:37 100 MLS/HR Vital Signs/I&O 02/21/22 15:54 Temp 35.6 Pulse 70 Resp 18 B/P (MAP) 94/56 (69) Pulse Ox 95 O2 Delivery Room Air Capillary Refill : Less Than 3 Seconds Blood Pressure Mean: 69 Departure Communication (Admissions) Time/Spoke to Admitting Phy: 19:47 Patient was hypotensive on arrival. Was not tachycardic. Seen here yesterday had a catheter placed. Diagnosed with UTI discharged with cefdinir. Concerning for sepsis. Blood cultures pending. Lactic acid 2.12. Elevated white blood count 26,000. Acute on chronic kidney failure. Patient was given 30 ml per keg and started on cefepime. CT scan of the abdomen shows enlarged prostate with concern for cystitis. No evidence of nephrolithiasis. No chest pain, shortness of breath. Negative COVID influenza. Patient blood pressure continue to improve. Received his IV fluids. Patient will be admitted to Dr. Olayinka for cardiac stepdown secondary to soft blood pressure. Hypoglycemia protocol. Patient Was hyperglycemiac at 347 ion arrival mproved to near 178. Type II diabetic. Likely secondary to dehydration. No ketones in the urine with normal anion gap. Slight elevated beta hydroxybutyrate at 0.57. hyperglycemic protocol. Impression Primary Impression: Sepsis Additional Impressions: Urinary tract infection Hyperglycemia Disposition: ADMITTED INPATIENT Condition: Stable Admissions Decision to Admit Reason: Admit from ER (General) Decision to Admit/Date: Feb 21, 2022 Time/Decision to Admit Time: 19:47 Departure-Patient Inst. Decision time for Depature: 19:47 Referrals: [facility] SPARKS DO (PCP/Family) Primary Care Physician DEMETRIO CUNHA Feb 21, 2022 17:09
[2022-02-21] MEDS ORDERED: CEFEPIME INJECTION 1,000 MG in NS (IVPB) 50 ML IV ONE (17:15)
[2022-02-21 17:17] LABS: BASOPHILS # (AUTO) 0.1 10^3/uL (0.0-0.1); BASOPHILS % (AUTO) 0 % (0-10); EOSINOPHILS % (AUTO) 0 % (0-10); HEMATOCRIT 39 % (40-54); LYMPHOCYTES # (AUTO) 1.4 10^3/uL (1.0-4.0); LYMPHOCYTES % (AUTO) 5 % (12-44); MEAN CORPUSCULAR HEMOGLOBIN 31 pg (25-34); MEAN CORPUSCULAR HGB CONC 33 g/dL (32-36); MEAN CORPUSCULAR VOLUME 93 fL (80-99); MONOCYTES # (AUTO) 1.7 10^3/uL (0.0-1.0); MONOCYTES % (AUTO) 6 % (0-12); NEUTROPHILS # (AUTO) 23.3 10^3/uL (1.8-7.8); NEUTROPHILS % (AUTO) 87 % (42-75); PLATELET COUNT 200 10^3/uL (130-400); WHITE BLOOD COUNT 26.8 10^3/uL (4.3-11.0)
[2022-02-21 17:25] LABS: BILIRUBIN,URINE NEGATIVE (NEGATIVE); CLARITY,URINE CLEAR; COLOR,URINE YELLOW; GLUCOSE, URINE (UA) 3+ (NEGATIVE); KETONES,URINE NEGATIVE (NEGATIVE); LEUKOCYTE ESTERASE ,URINE NEGATIVE (NEGATIVE); NITRITE,URINE NEGATIVE (NEGATIVE); PH,URINE 5.5 (5-9); PROTEIN,URINE NEGATIVE (NEGATIVE)
[2022-02-21 17:32] LABS: BACTERIA,URINE FEW /HPF; SQUAMOUS EPITHELIAL CELL,UR 0-2 /HPF
[2022-02-21 17:34] LABS: ALBUMIN 3.3 GM/DL (3.2-4.5); POTASSIUM 4.2 MMOL/L (3.6-5.0)
[2022-02-21 17:35] LABS: CALCIUM 8.9 MG/DL (8.5-10.1)
[2022-02-21] MEDS ORDERED: NS IV 1000 ML 1,000 ML ONE ×2 (17:35→20:48)
[2022-02-21 17:36] LABS: TOTAL PROTEIN 6.1 GM/DL (6.4-8.2)
[2022-02-21 17:38] LABS: BILIRUBIN,TOTAL 0.5 MG/DL (0.1-1.0)
[2022-02-21 17:39] LABS: BURR CELLS MODERATE; ELLIPT/OVALOCYTES MODERATE; LYMPHOCYTES % (MANUAL) 5 %; MONOCYTES % (MANUAL) 5 %; NEUTROPHILS % (MANUAL) 90 %; POLYCHROMASIA MODERATE
[2022-02-21 17:40] LABS: CREATININE SERUM 2.46 MG/DL (0.60-1.30)
--- NOTE | 2022-02-21 18:36 | Diagnostic Imaging Report ---
PROCEDURE: CT abdomen and pelvis without contrast. TECHNIQUE: Multiple contiguous axial images were obtained through the abdomen and pelvis without the use of intravenous contrast. Auto Exposure Controls were utilized during the CT exam to meet ALARA standards for radiation dose reduction. INDICATION: Lower abdominal pain, urinary tract infection. FINDINGS: Lung bases are clear. Liver appears normal. Gallbladder appears normal. Pancreas is normal. Spleen is not enlarged. Kidneys and adrenals appear normal. Small bowel is not dilated. The appendix is normal. The colon appears normal. The prostate is enlarged. There is a Kay catheter in the urinary bladder. The urinary bladder wall appears thickened. IMPRESSION: Enlarged prostate. Thickened urinary bladder wall that could be from bladder hypertrophy versus cystitis. Clinical correlation recommended. Dictated by: Dictated on workstation # [id number]
[2022-02-21 21:00] VITALS: BP 111/67
[2022-02-21 21:15] VITALS: BP 122/71
[2022-02-21 21:30] VITALS: BP 116/68
[2022-02-21 21:45] VITALS: BP 113/69
[2022-02-21] MEDS ORDERED: ONDANSETRON 4 MG/2 ML (SDV) Z0FRAN IV PRN (21:45)
[2022-02-21] MEDS ORDERED: ACETAMINOPHEN 500 MG TAB (TYLENOL) PO PRN (21:45)
[2022-02-21 22:15] VITALS: BP 108/62
[2022-02-21 22:45] VITALS: BP 104/63
[2022-02-21] MEDS: CATHETER FLUSH 10 ML SYR IVP SCH (23:09)
[2022-02-22] VITALS: BP 114/63
[2022-02-22 04:00] VITALS: BP 119/64
[2022-02-22] MEDS ORDERED: CEFEPIME 1,000 MG/NS 50 ML IVPB IV SCH ×4 (05:30→11:00)
[2022-02-22 06:04] LABS: POTASSIUM 4.3 MMOL/L (3.6-5.0)
[2022-02-22 06:05] LABS: CALCIUM 8.3 MG/DL (8.5-10.1)
[2022-02-22 06:09] LABS: CREATININE SERUM 1.69 MG/DL (0.60-1.30)
[2022-02-22 06:26] LABS: BASOPHILS # (AUTO) 0.1 10^3/uL (0.0-0.1); BASOPHILS % (AUTO) 0 % (0-10); EOSINOPHILS % (AUTO) 0 % (0-10); HEMATOCRIT 34 % (40-54); HEMOGLOBIN 10.9 g/dL (13.3-17.7); LYMPHOCYTES # (AUTO) 2.2 10^3/uL (1.0-4.0); LYMPHOCYTES % (AUTO) 12 % (12-44); MEAN CORPUSCULAR HEMOGLOBIN 31 pg (25-34); MEAN CORPUSCULAR HGB CONC 32 g/dL (32-36); MEAN CORPUSCULAR VOLUME 94 fL (80-99); MEAN PLATELET VOLUME 11.9 fL (9.0-12.2); MONOCYTES # (AUTO) 1.3 10^3/uL (0.0-1.0); MONOCYTES % (AUTO) 7 % (0-12); NEUTROPHILS # (AUTO) 15.3 10^3/uL (1.8-7.8); NEUTROPHILS % (AUTO) 80 % (42-75); PLATELET COUNT 183 10^3/uL (130-400)
[2022-02-22 08:00] VITALS: BP 127/71
[2022-02-22] MEDS ORDERED: AMIO200T65 PO (08:26)
[2022-02-22] MEDS ORDERED: METF-478 PO (08:26)
[2022-02-22] MEDS: CATHETER FLUSH 10 ML SYR IVP SCH ×3 (08:32→21:22)
[2022-02-22] MEDS ORDERED: ONDANSETRON 4 MG (ZOFRAN) ORAL DISSOLVE TAB PO PRN (09:15)
--- NOTE | 2022-02-22 10:11 | History & Physical-Hospitalist ---
History of Present Illness HPI/Chief Complaint Patient is a 66-year-old male with past medical history of diabetes, coronary artery disease, hyperlipidemia, hypertension who presented to the emergency department due to weakness and fatigue. He reports his symptoms started on February 19 and have progressed since that time. He was seen in the emergency department on February 20 and diagnosed with a urinary tract infection and urinary retention. He was discharged home with oral antibiotics and a catheter. Despite this he continued to worsen and return to the emergency department where he was found have a leukocytosis of 26 and was admitted for IV antibiotics. Denies any history of prostate issues but does take an [id number] prostate medication. Reports feeling slightly better today but still does not feel well. Source: patient Date Seen 02/22/22 Time Seen by a Provider: 09:45 Attending Physician Gretel Jaime DO PCP Admitting Physician: Austin Kang MD Attending Physician: Austin Kang MD Referring Physician Date of Admission Feb 21, 2022 at 19:01 Home Medications & Allergies Home Medications Reviewed patient Home Medication Reconciliation performed by pharmacy medication reconciliations solar fabrication technician and/or nursing. Patients Allergies have been reviewed. Allergies Allergies Coded Allergies phenytoin (Unverified Allergy, Unknown, 11/19/20) Past Aquaglf-[id number]-Hbzbyl Hx Patient Social History Tobacco Use?: No Smoking Status: Never a Smoker Use of E-Cig and/or Vaping dev: No Substance use?: No Alcohol Use?: No Pt feels they are or have been: No Immunizations Up To Date Date of Influenza Vaccine: Jun 21, 2020 First/Initial COVID19 Vaccinat: 09/18/20 Second COVID19 Vaccination Blake: 10/09/20 Tetanus Booster (TDap): Unknown Seasonal Allergies Seasonal Allergies: No Current Status Primary Language: Panamanian Preferred Spoken Language: Panamanian Implanted or Applied Medical D: None Past Medical History Surgeries: Coronary Stent, Orthopedic Currently Using CPAP: No Currently Using BIPAP: No Atrial Fibrillation, High Cholesterol, Hypertension Diabetes, Insulin dep Macular Degeneration Loss of Vision: Denies Hearing Impairment: Denies Blood Disorders: No Adverse Reaction/Blood Tranf: No Family Medical History Reviewed Nursing Family Hx No Pertinent Family Hx Review of Systems Constitutional: No chills, No fever; malaise, weakness EENTM: no symptoms reported Respiratory: no symptoms reported Cardiovascular: no symptoms reported Gastrointestinal: no symptoms reported Genitourinary: see HPI Musculoskeletal: no symptoms reported Skin: no symptoms reported Psychiatric/Neurological: No Symptoms Reported Physical Exam Physical Exam Vital Signs Vital Signs - First Documented 02/21/22 15:54 Temp 35.6 Pulse 70 Resp 18 B/P (MAP) 94/56 (69) Pulse Ox 95 O2 Delivery Room Air Capillary Refill : Less Than 3 Seconds Height, Weight, BMI Height: '" Weight: lbs. oz. kg; 35.91 BMI Method: General Appearance: No Apparent Distress, WD/WN, Obese HEENT: PERRL/EOMI, Moist Mucous Membranes; No Scleral Icterus (L), No Scleral Icterus (R) Neck: Normal Inspection, Supple Respiratory: Lungs Clear, No Accessory Muscle Use, No Respiratory Distress Cardiovascular: Regular Rate, Rhythm, No Murmur Gastrointestinal: Normal Bowel Sounds, Non Tender, Soft Extremity: Normal Capillary Refill, No Calf Tenderness, No Pedal Edema Neurologic/Psychiatric: Alert, Oriented x3, Normal Mood/Affect Results Results/Procedures Labs Laboratory Tests 02/21/22 17:05 02/22/22 05:25 02/22/22 06:06 Patient resulted labs reviewed. Imaging: Reviewed Imaging Report Assessment/Plan Admission Diagnosis Sepsis Admission Status: Inpatient Order (span 2 midnights) Reason for Inpatient Admission: failed outpatient management Assessment and Plan Sepsis, severe UTI- klebsiella Urinary retention FEDERICA Continue on IV abx continue IVF Add Flomax Urology consult Creatinine improving CAD HTN HLD IDDMI a-fib Obesity No acute needs Continue home meds as able Hold Levemir today as BS without is tolerable SSI DVT ppx: Lovenox Diagnosis/Problems Diagnosis/Problems (1) HLD (hyperlipidemia) Qualifiers: Hyperlipidemia type: mixed hyperlipidemia Qualified Codes: E78.2 - Mixed hyperlipidemia (2) Essential (primary) hypertension Status: Chronic (3) Insulin dependent diabetes mellitus Status: Chronic (4) Sepsis Status: Acute Qualifiers: Sepsis type: sepsis due to unspecified organism Sepsis acute organ dysfunction status: with acute organ dysfunction Severe sepsis acute organ dysfunction type: acute renal failure Acute renal failure type: with acute tubular necrosis Severe sepsis shock status: without septic shock Qualified Codes: A41.9 - Sepsis, unspecified organism; R65.20 - Severe sepsis without septic shock; N17.0 - Acute kidney failure with tubular necrosis (5) Urinary tract infection Status: Acute Qualifiers: Urinary tract infection type: acute cystitis Hematuria presence: with hematuria Qualified Codes: N30.01 - Acute cystitis with hematuria (6) Kay catheter in place Status: Acute (7) Urinary retention Status: Acute (8) Afib Status: Chronic Qualifiers: Atrial fibrillation type: paroxysmal Qualified Codes: I48.0 - Paroxysmal atrial fibrillation AUSTIN KANG MD Feb 22, 2022 10:11
[2022-02-22] MEDS ORDERED: ANTACID SUSP 30 ML UDC (MYLANTA) PO PRN (10:15)
[2022-02-22] MEDS ORDERED: ONDANSETRON 4 MG/2 ML (SDV) Z0FRAN IV PRN (10:15)
[2022-02-22] MEDS ORDERED: MELATONIN 3 MG TABLET PO PRN (10:15)
[2022-02-22] MEDS ORDERED: MILK OF MAGNESIA 400 MG/5 ML 30 ML UDC PO PRN (10:15)
[2022-02-22] MEDS: CLOPIDOGREL 75 MG (PLAVIX) TABLET PO SCH (10:16)
[2022-02-22] MEDS: ASPIRIN E.C. 81 MG (ECOTRIN) TAB PO SCH (10:16)
[2022-02-22] MEDS: APIXABAN 5 MG (ELIQUIS) TABLET PO SCH ×2 (10:16→21:22)
[2022-02-22] MEDS: AMIODARONE 200 MG (CORDARONE) TAB PO SCH ×2 (10:19→21:22)
[2022-02-22] MEDS: NS IV 1000 ML 1,000 ML IV SCH (10:19)
[2022-02-22] MEDS: inSUlin ASPART (NovoLOG) 1 UNIT/0.01 ML (CHARGE PER UNIT) SC SCH ×3 (11:27→21:22)
[2022-02-22] MEDS: CEFEPIME 1,000 MG/NS 50 ML IVPB IV SCH ×4 (11:59→17:34)
[2022-02-22 12:59] VITALS: BP 144/71
[2022-02-22] MEDS ORDERED: PRED5DRO24 OP (13:00)
[2022-02-22] MEDS ORDERED: MOXI3DRO11 OP (13:00)
[2022-02-22] MEDS ORDERED: PATIENT MAY USE OWN MED,SINGLE MED PO SCH ×2 (13:15)
[2022-02-22] MEDS ORDERED: PATIENT MAY USE OWN MEDS, ALL MC SCH (13:15)
[2022-02-22 16:30] VITALS: BP 162/81
[2022-02-22] MEDS: prednisoLONE 1% OPTH (PRED FORTE) 5 ML BTL OS SCH ×2 (17:34→21:22)
[2022-02-22] MEDS: MOXIFLOXACIN OPHTH SOLN 5 MG/ML 0.3 ML SYRINGE OS SCH ×2 (17:34→21:22)
[2022-02-22] MEDS ORDERED: TAMSULOSIN 0.4 MG (FLOMAX) CAP PO SCH (18:00)
[2022-02-22 19:09] VITALS: BP 147/77
[2022-02-23] VITALS (7 sets, daily range): BP systolic 132–181; BP diastolic 42–81
[2022-02-23] MEDS: CEFEPIME 1,000 MG/NS 50 ML IVPB IV SCH ×4 (00:29→06:04)
--- NOTE | 2022-02-23 04:22 | Progress Note ---
Subjective Date Seen by a Provider: Feb 23, 2022 Time Seen by a Provider: 11:45 Subjective/Events-last exam Patient much better Dr Gutierrez will perform cysto tomorrow and DC catheter BM+ Eating and drinking well No pain Slept well Reviewed meds Review of Systems General: Fatigue, Malaise Genitourinary: Retention Focused Exam Lactate Level 02/21/22 17:15: Lactic Acid Level 2.12*H 02/21/22 19:22: Lactic Acid Level 1.64 Objective Exam Last Set of Vital Signs Vital Signs Date Time Temp Pulse Resp B/P (MAP) Pulse Ox O2 Delivery O2 Flow Rate FiO2 02/23/22 01:01 82 02/23/22 00:27 36.7 18 156/76 (102) 95 Room Air Capillary Refill : Less Than 3 Seconds I&O Intake and Output 02/23/22 00:00 Intake Total 1650 ml Output Total 2125 ml Balance -475 ml Intake Oral 1650 ml Output Urine Total 2125 ml # Bowel Movements 1 Daily Weight Change No General: Alert, Oriented X3, Cooperative, No Acute Distress Lungs: Clear to Auscultation, Normal Air Movement Heart: Regular Rate, Normal S1, Normal S2, No Murmurs Neuro: Normal Gait, Normal Speech, Strength at 5/5 X4 Ext, Normal Tone Psych/Mental Status: Mental Status NL, Mood NL Results Lab Laboratory Tests 02/22/22 05:25: Sodium Level 140, Potassium Level 4.3, Chloride Level 110H, Carbon Dioxide Level 18L, Anion Gap 12, Blood Urea Nitrogen 29H, Creatinine 1.69H, Estimat Glomerular Filtration Rate 44, BUN/Creatinine Ratio 17, Glucose Level 140H, Calcium Level 8.3L 02/22/22 06:06: White Blood Count 19.0H, Red Blood Count 3.57L, Hemoglobin 10.9L, Hematocrit 34L , Mean Corpuscular Volume 94, Mean Corpuscular Hemoglobin 31, Mean Corpuscular Hemoglobin Concent 32, Red Cell Distribution Width 14.3, Platelet Count 183, Mean Platelet Volume 11.9, Immature Granulocyte % (Auto) 1, Neutrophils (%) (Auto) 80H, Lymphocytes (%) (Auto) 12, Monocytes (%) (Auto) 7, Eosinophils (%) (Auto) 0, Basophils (%) (Auto) 0, Neutrophils # (Auto) 15.3H, Lymphocytes # (Auto) 2.2, Monocytes # (Auto) 1.3H, Eosinophils # (Auto) 0.0, Basophils # (Auto) 0.1, Immature Granulocyte # (Auto) 0.2H 02/22/22 15:57: Glucometer 139H 02/22/22 20:38: Glucometer 202H Microbiology 02/21/22 Blood Culture - Preliminary, Resulted No growth Assessment/Plan Assessment/Plan Assess & Plan/Chief Complaint Assessment: Sepsis, severe UTI- klebsiella Urinary retention acute on chronic Kay catheter in place FEDERICA Continue on IV abx but narrow to Rocephin per UCx HLIVF Added Flomax Urology consult appreciated Creatinine baseline now CAD HTN HLD IDDMI a-fib Obesity No acute needs Continue home meds as able Hold Levemir today as BS without is tolerable SSI DVT ppx: Eliquis Plan: Cysto and DC catheter tomorrow Narrow abx to Rocephin MC SPARKS DO Feb 23, 2022 04:22
[2022-02-23 05:53] LABS: HEMATOCRIT 35 % (40-54); HEMOGLOBIN 11.3 g/dL (13.3-17.7); MEAN CORPUSCULAR HEMOGLOBIN 31 pg (25-34); MEAN CORPUSCULAR HGB CONC 32 g/dL (32-36); MEAN CORPUSCULAR VOLUME 94 fL (80-99); PLATELET COUNT 199 10^3/uL (130-400); WHITE BLOOD COUNT 12.4 10^3/uL (4.3-11.0)
[2022-02-23] MEDS: inSUlin ASPART (NovoLOG) 1 UNIT/0.01 ML (CHARGE PER UNIT) SC SCH ×4 (06:02→20:22)
[2022-02-23] MEDS: NS IV 1000 ML 1,000 ML IV SCH (06:02)
[2022-02-23] MEDS: CATHETER FLUSH 10 ML SYR IVP SCH ×3 (06:02→20:24)
[2022-02-23 06:06] LABS: ALBUMIN 2.9 GM/DL (3.2-4.5); POTASSIUM 3.8 MMOL/L (3.6-5.0)
[2022-02-23 06:07] LABS: CALCIUM 8.2 MG/DL (8.5-10.1)
[2022-02-23 06:09] LABS: TOTAL PROTEIN 5.5 GM/DL (6.4-8.2)
[2022-02-23 06:10] LABS: BILIRUBIN,TOTAL 0.3 MG/DL (0.1-1.0)
[2022-02-23 06:12] LABS: CREATININE SERUM 1.17 MG/DL (0.60-1.30)
[2022-02-23 06:14] LABS: BILIRUBIN,DIRECT 0.1 MG/DL (0.0-0.3); BILIRUBIN,INDIRECT 0.2 MG/DL
[2022-02-23] MEDS: ASPIRIN E.C. 81 MG (ECOTRIN) TAB PO SCH (09:26)
[2022-02-23] MEDS: prednisoLONE 1% OPTH (PRED FORTE) 5 ML BTL OS SCH ×4 (09:26→20:23)
[2022-02-23] MEDS: MOXIFLOXACIN OPHTH SOLN 5 MG/ML 0.3 ML SYRINGE OS SCH ×4 (09:26→20:24)
[2022-02-23] MEDS: AMIODARONE 200 MG (CORDARONE) TAB PO SCH ×2 (09:26→20:23)
[2022-02-23] MEDS: CLOPIDOGREL 75 MG (PLAVIX) TABLET PO SCH (09:26)
[2022-02-23] MEDS: APIXABAN 5 MG (ELIQUIS) TABLET PO SCH ×2 (09:26→20:22)
--- NOTE | 2022-02-23 13:41 | CONSULTATION REPORT ---
DATE OF SERVICE: 02/23/2022 ATTENDING PHYSICIAN: Dr. Jaime - Dr. Bhagat. SUMMARY: After reviewing the patient's record, interviewing him and checking his x-rays and lab reports. This is a 66-year-old nice man who presented initially to the emergency room on 02/20/2022 with urinary tract infection, urinary retention, started on oral antibiotic and Kay catheter, but he did not improve, came back to the emergency room and his white count was 26,000. He was subsequently admitted for IV antibiotics. His creatinine at that time was 2.46. With appropriate management, fluids and antibiotic, his labs improved very much and he responded well to the antibiotic. He denies any significant voiding symptoms at home, takes an dzsq-vwk-ucbyift prostate supplement, no prescription medicine for it. ALLERGIES: PHENYTOIN. SOCIAL HISTORY: No smoking, no alcohol, no drugs. No seasonal allergies. PAST MEDICAL HISTORY: Coronary artery disease, hyperlipidemia, hypertension, insulin-dependent diabetes, atrial fibrillation, macular degeneration. REVIEW OF SYSTEMS: Negative essentially. FAMILY HISTORY: Noncontributory. PAST SURGICAL HISTORY: Coronary stent and some orthopedic surgeries surgery. PHYSICAL EXAMINATION: VITAL SIGNS: Per chart. GENERAL: Well-nourished, well-developed in no acute distress. HEENT: Head is normocephalic. ENT unremarkable. NECK: Supple, no bruits. CHEST: Clear, nontender. HEART: Regular rate and rhythm, no murmur. ABDOMEN: Soft, nontender. EXTREMITIES: Lower extremity, no edema or cyanosis. NEUROLOGIC: Grossly intact. Oriented x3. IMPRESSION: 1. BPH with urinary retention, infection and sepsis. 2. Medical illnesses per history. 3. Anticoagulation, namely also his home medications include aspirin, Plavix and Eliquis among other medications. They were all reviewed frequency and dosage. PLAN: Continue Kay catheter, antibiotics, IV fluid. I started him on Flomax and Proscar. We will do a flexible cystoscopy at bedside tomorrow under local. It was fully explained to him the whole plan and all of his questions were answered. Thank you for letting me participate in the care of this patient. We will follow with you. CC: Dr. Jaime - requested, unable to deliver. CC: Dr. Bhagat - requested, unable to deliver. Job ID: [id number] DocumentID: [id number] Dictated Date: 02/23/2022 09:53:43 [employer]arcotics And [employer] Detective Date: 02/23/2022 13:41:19 Dictated By: MEGAN MARINA MD
[2022-02-23] MEDS: cefTRIAXone 1 GM PRE-MIX 50 ML IV SCH (13:51)
[2022-02-23] MEDS ORDERED: ONDANSETRON 4 MG (ZOFRAN) ORAL DISSOLVE TAB PO PRN (14:00)
[2022-02-23] MEDS: TAMSULOSIN 0.4 MG (FLOMAX) CAP PO SCH (18:01)
[2022-02-24 04:00] VITALS: BP 172/74
[2022-02-24 06:28] LABS: BASOPHILS % (AUTO) 0 % (0-10); EOSINOPHILS # (AUTO) 0.1 10^3/uL (0.0-0.3); EOSINOPHILS % (AUTO) 1 % (0-10); HEMATOCRIT 35 % (40-54); HEMOGLOBIN 11.2 g/dL (13.3-17.7); LYMPHOCYTES # (AUTO) 1.6 10^3/uL (1.0-4.0); LYMPHOCYTES % (AUTO) 16 % (12-44); MEAN CORPUSCULAR HEMOGLOBIN 30 pg (25-34); MEAN CORPUSCULAR HGB CONC 33 g/dL (32-36); MEAN CORPUSCULAR VOLUME 93 fL (80-99); MEAN PLATELET VOLUME 10.9 fL (9.0-12.2); MONOCYTES # (AUTO) 0.9 10^3/uL (0.0-1.0); MONOCYTES % (AUTO) 9 % (0-12); NEUTROPHILS % (AUTO) 72 % (42-75); PLATELET COUNT 224 10^3/uL (130-400); WHITE BLOOD COUNT 9.8 10^3/uL (4.3-11.0)
[2022-02-24 06:37] LABS: ALBUMIN 2.9 GM/DL (3.2-4.5); POTASSIUM 3.6 MMOL/L (3.6-5.0)
[2022-02-24 06:38] LABS: CALCIUM 8.3 MG/DL (8.5-10.1)
[2022-02-24 06:39] LABS: TOTAL PROTEIN 5.5 GM/DL (6.4-8.2)
[2022-02-24 06:41] LABS: BILIRUBIN,TOTAL 0.2 MG/DL (0.1-1.0)
[2022-02-24 06:43] LABS: CREATININE SERUM 1.05 MG/DL (0.60-1.30)
[2022-02-24] MEDS: inSUlin ASPART (NovoLOG) 1 UNIT/0.01 ML (CHARGE PER UNIT) SC SCH ×4 (06:46→21:51)
[2022-02-24] MEDS: CATHETER FLUSH 10 ML SYR IVP SCH ×3 (06:50→22:18)
[2022-02-24] MEDS: amLODIPine 5 MG (NORVASC) TAB PO SCH ×2 (06:50→08:53)
[2022-02-24] MEDS ORDERED: LIDOCAINE UROJET 2% GEL 10 ML PKG ONE (07:28)
--- NOTE | 2022-02-24 07:43 | Progress Note-Pre Operative ---
Pre-Operative Progress Note H&P Reviewed The H&P was reviewed, patient examined and no changes noted. Date Seen by Provider: Feb 24, 2022 Time Seen by Provider: 07:42 Date H&P Reviewed: Feb 24, 2022 Time H&P Reviewed: 07:43 Pre-Operative Diagnosis: RETENTION AND BPH MEGAN MARINA MD Feb 24, 2022 07:43
--- NOTE | 2022-02-24 07:43 | Progress Note-Post Operative ---
Post-Operative Progess Note Surgeon (s)/Med Aide (s) Surgeon MEGAN MARINA MD Med Aide: NONE Pre-Operative Diagnosis RETENTION AND BPH Post-Operative Diagnosis SAME Procedure & Operative Findings Date of Procedure 02/24/22 Procedure Performed/Findings CYSTOSCOPY Anesthesia Type LOCAL Estimated Blood Loss Estimated blood loss (mL): NONE Specimens/Packing Specimens Removed NONE Packing: NONE MEGAN MARINA MD Feb 24, 2022 07:43
[2022-02-24 07:49] VITALS: BP 165/94
[2022-02-24] MEDS: cefTRIAXone 1 GM PRE-MIX 50 ML IV SCH (08:53)
[2022-02-24] MEDS: CLOPIDOGREL 75 MG (PLAVIX) TABLET PO SCH (08:53)
[2022-02-24] MEDS: FINASTERIDE (PROSCAR) 5 MG TAB PO SCH (08:53)
[2022-02-24] MEDS: MOXIFLOXACIN OPHTH SOLN 5 MG/ML 0.3 ML SYRINGE OS SCH ×4 (08:54→22:18)
[2022-02-24] MEDS: ASPIRIN E.C. 81 MG (ECOTRIN) TAB PO SCH (08:59)
[2022-02-24] MEDS: APIXABAN 5 MG (ELIQUIS) TABLET PO SCH ×2 (09:00→21:52)
[2022-02-24] MEDS: AMIODARONE 200 MG (CORDARONE) TAB PO SCH ×2 (09:01→21:52)
[2022-02-24] MEDS: prednisoLONE 1% OPTH (PRED FORTE) 5 ML BTL OS SCH ×4 (09:02→21:51)
[2022-02-24] MEDS ORDERED: CLOP75TA69 PO (10:21)
[2022-02-24] MEDS ORDERED: FINA5TAB6 PO (10:23)
[2022-02-24] MEDS ORDERED: TMSL.4C PO (10:23)
[2022-02-24] MEDS ORDERED: AMLO-250 PO (10:23)
[2022-02-24] MEDS ORDERED: INSU100I34 SQ (10:23)
[2022-02-24] MEDS ORDERED: INSU100I14 SQ (10:23)
[2022-02-24] MEDS ORDERED: FURO40TA4 PO (10:23)
--- NOTE | 2022-02-24 10:27 | Discharge Summary ---
Diagnosis/Chief Complaint Date of Admission Feb 22, 2022 at 14:02 Date of Discharge Discharge Date: Feb 24, 2022 Discharge Summary Discharge Physical Examination Allergies: Coded Allergies: phenytoin (Unverified Allergy, Unknown, 11/19/20) Vitals & I&Os Vital Signs Date Time Temp Pulse Resp B/P (MAP) Pulse Ox O2 Delivery O2 Flow Rate FiO2 02/24/22 09:00 94 Room Air 02/24/22 07:49 36.7 72 18 165/94 (117) Hospital Course Labs (last 24 hrs) Laboratory Tests 02/21/22 17:05: White Blood Count 26.8H, Red Blood Count 4.23L, Hemoglobin 13.0L, Hematocrit 39L , Mean Corpuscular Volume 93, Mean Corpuscular Hemoglobin 31, Mean Corpuscular Hemoglobin Concent 33, Red Cell Distribution Width 14.2, Platelet Count 200, Mean Platelet Volume 12.0, Immature Granulocyte % (Auto) 2, Neutrophils (%) (Auto) 87H, Lymphocytes (%) (Auto) 5L, Monocytes (%) (Auto) 6, Eosinophils (%) (Auto) 0, Basophils (%) (Auto) 0, Neutrophils # (Auto) 23.3H, Lymphocytes # (Auto) 1.4, Monocytes # (Auto) 1.7H, Eosinophils # (Auto) 0.0, Basophils # (Auto) 0.1, Immature Granulocyte # (Auto) 0.4H, Neutrophils % (Manual) 90, Lymphocytes % (Manual) 5, Monocytes % (Manual) 5, Polychromasia MODERATE, Romeo Cells MODERATE, Elliptocytes MODERATE, Urine Color YELLOW, Urine Clarity CLEAR, Urine pH 5.5, Urine Specific [place] 1.010L, Urine Protein NEGATIVE, Urine Glucose (UA) 3+H, Urine Ketones NEGATIVE, Urine Nitrite NEGATIVE, Urine Bilirubin NEGATIVE, Urine Urobilinogen 0.2, Urine Leukocyte Esterase NEGATIVE, Urine RBC (Auto) 2+H, Urine RBC NONE, Urine WBC 5-10H, Urine Squamous Epithelial Cells 0-2, Urine Renal Epithelial Cells NONE, Urine Crystals NONE, Urine Bacteria FEWH, Urine Casts NONE, Urine Mucus NEGATIVE, Urine Culture Indicated YES, Sodium Level 134L, Potassium Level 4.2, Chloride Level 101, Carbon Dioxide Level 19L, Anion Gap 14, Blood Urea Nitrogen 29H, Creatinine 2.46H, Estimat Glomerular Filtration Rate 28, BUN/Creatinine Ratio 12, Glucose Level 357H, Calcium Level 8.9, Corrected Calcium 9.5, Total Bilirubin 0.5, Aspartate Amino Transf (AST/SGOT) 35H, Alanine Aminotransferase (ALT/SGPT) 25, Alkaline Phosphatase 61, C-Reactive Protein High Sensitivity 34.94H, Total Protein 6.1L, Albumin 3.3, Lipase 59, Beta-Hydroxybutyrate (Chem panel) 0.57H 02/21/22 17:15: Lactic Acid Level 2.12*H 02/21/22 19:22: Lactic Acid Level 1.64 02/22/22 05:25: Sodium Level 140, Potassium Level 4.3, Chloride Level 110H, Carbon Dioxide Level 18L, Anion Gap 12, Blood Urea Nitrogen 29H, Creatinine 1.69H, Estimat Glomerular Filtration Rate 44, BUN/Creatinine Ratio 17, Glucose Level 140H, Calcium Level 8.3L 02/22/22 06:06: White Blood Count 19.0H, Red Blood Count 3.57L, Hemoglobin 10.9L, Hematocrit 34L , Mean Corpuscular Volume 94, Mean Corpuscular Hemoglobin 31, Mean Corpuscular Hemoglobin Concent 32, Red Cell Distribution Width 14.3, Platelet Count 183, Mean Platelet Volume 11.9, Immature Granulocyte % (Auto) 1, Neutrophils (%) (Auto) 80H, Lymphocytes (%) (Auto) 12, Monocytes (%) (Auto) 7, Eosinophils (%) (Auto) 0, Basophils (%) (Auto) 0, Neutrophils # (Auto) 15.3H, Lymphocytes # (Auto) 2.2, Monocytes # (Auto) 1.3H, Eosinophils # (Auto) 0.0, Basophils # (Auto) 0.1, Immature Granulocyte # (Auto) 0.2H 02/22/22 15:57: Glucometer 139H 02/22/22 20:38: Glucometer 202H 02/23/22 05:43: White Blood Count 12.4H, Red Blood Count 3.71L, Hemoglobin 11.3L, Hematocrit 35L , Mean Corpuscular Volume 94, Mean Corpuscular Hemoglobin 31, Mean Corpuscular Hemoglobin Concent 32, Red Cell Distribution Width 14.0, Platelet Count 199, Mean Platelet Volume 11.0, Sodium Level 139, Potassium Level 3.8, Chloride Level 110H, Carbon Dioxide Level 17L, Anion Gap 12, Blood Urea Nitrogen 23H, Creatinine 1.17, Estimat Glomerular Filtration Rate 69, BUN/Creatinine Ratio 20, Glucose Level 140H, Calcium Level 8.2L, Total Bilirubin 0.3, Direct Bilirubin 0.1, Indirect Bilirubin 0.2, Aspartate Amino Transf (AST/SGOT) 28, Alanine Aminotransferase (ALT/SGPT) 27, Alkaline Phosphatase 54, Total Protein 5.5L, Albumin 2.9L 02/23/22 06:01: Glucometer 146H 02/23/22 12:26: Glucometer 270H 02/23/22 15:41: Glucometer 239H 02/23/22 20:07: Glucometer 255H 02/24/22 06:20: White Blood Count 9.8, Red Blood Count 3.72L, Hemoglobin 11.2L, Hematocrit 35L, Mean Corpuscular Volume 93, Mean Corpuscular Hemoglobin 30, Mean Corpuscular Hemoglobin Concent 33, Red Cell Distribution Width 13.9, Platelet Count 224, Mean Platelet Volume 10.9, Immature Granulocyte % (Auto) 2, Neutrophils (%) (Auto) 72, Lymphocytes (%) (Auto) 16, Monocytes (%) (Auto) 9, Eosinophils (%) (Auto) 1, Basophils (%) (Auto) 0, Neutrophils # (Auto) 7.0, Lymphocytes # (Auto) 1.6, Monocytes # (Auto) 0.9, Eosinophils # (Auto) 0.1, Basophils # (Auto) 0.0, I mmature Granulocyte # (Auto) 0.2H, Sodium Level 141, Potassium Level 3.6, Chloride Level 110H, Carbon Dioxide Level 23, Anion Gap 8, Blood Urea Nitrogen 16, Creatinine 1.05, Estimat Glomerular Filtration Rate 78, BUN/Creatinine Ratio 15, Glucose Level 89, Calcium Level 8.3L, Corrected Calcium 9.2, Total Bilirubin 0.2, Aspartate Amino Transf (AST/SGOT) 23, Alanine Aminotransferase (ALT/SGPT) 28, Alkaline Phosphatase 54, Total Protein 5.5L, Albumin 2.9L 02/24/22 06:45: Glucometer 82 Microbiology 02/21/22 Blood Culture - Preliminary, Resulted No growth 02/21/22 Urine Culture - Final, Complete NO GROWTH Pending Labs Microbiology Date/Time Source Procedure Growth Status 02/21/22 17:35 Peripheral Rt Ac Blood Culture - Preliminary No growth Resulted 02/21/22 17:15 Peripheral Lt Hand Blood Culture - Preliminary No growth Resulted 02/21/22 17:05 Urine Indwelling Cath (Hide Dropper) Urine Culture - Final NO GROWTH Complete Laboratory Tests 02/21/22 17:05: White Blood Count 26.8, Red Blood Count 4.23, Hemoglobin 13.0, Hematocrit 39, Mean Corpuscular Volume 93, Mean Corpuscular Hemoglobin 31, Mean Corpuscular Hemoglobin Concent 33, Red Cell Distribution Width 14.2, Platelet Count 200, Mean Platelet Volume 12.0, Immature Granulocyte % (Auto) 2, Neutrophils (%) (Auto) 87, Lymphocytes (%) (Auto) 5, Monocytes (%) (Auto) 6, Eosinophils (%) (Auto) 0, Basophils (%) (Auto) 0, Neutrophils # (Auto) 23.3, Lymphocytes # (Auto) 1.4, Monocytes # (Auto) 1.7, Eosinophils # (Auto) 0.0, Basophils # (Auto) 0.1, Immature Granulocyte # (Auto) 0.4, Neutrophils % (Manual) 90, Lymphocytes % (Manual) 5, Monocytes % (Manual) 5, Polychromasia MODERATE, Serg Cells MODERATE, Elliptocytes MODERATE, Urine Color YELLOW, Urine Clarity CLEAR, Urine pH 5.5, Urine Specific [place] 1.010, Urine Protein NEGATIVE, Urine Glucose (UA) 3+, Urine Ketones NEGATIVE, Urine Nitrite NEGATIVE, Urine Bilirubin NEGATIVE, Urine Urobilinogen 0.2, Urine Leukocyte Esterase NEGATIVE, Urine RBC (Auto) 2+, Urine RBC NONE, Urine WBC 5-10, Urine Squamous Epithelial Cells 0-2, Urine Renal Epithelial Cells NONE, Urine Crystals NONE, Urine Bacteria FEW, Urine Casts NONE, Urine Mucus NEGATIVE, Urine Culture Indicated YES, Sodium Level 134, Potassium Level 4.2, Chloride Level 101, Carbon Dioxide Level 19, Anion Gap 14, Blood Urea Nitrogen 29, Creatinine 2.46, Estimat Glomerular Filtration Rate 28, BUN/Creatinine Ratio 12, Glucose Level 357, Calcium Level 8.9, Corrected Calcium 9.5, Total Bilirubin 0.5, Aspartate Amino Transf (AST/SGOT) 35, Alanine Aminotransferase (ALT/SGPT) 25, Alkaline Phosphatase 61, C-Reactive Protein High Sensitivity 34.94, Total Protein 6.1, Albumin 3.3, Lipase 59, Beta- Hydroxybutyrate (Chem panel) 0.57 02/21/22 17:15: Lactic Acid Level 2.12 02/21/22 19:22: Lactic Acid Level 1.64 02/22/22 05:25: Sodium Level 140, Potassium Level 4.3, Chloride Level 110, Carbon Dioxide Level 18, Anion Gap 12, Blood Urea Nitrogen 29, Creatinine 1.69, Estimat Glomerular Filtration Rate 44, BUN/Creatinine Ratio 17, Glucose Level 140, Calcium Level 8.3 02/22/22 06:06: White Blood Count 19.0, Red Blood Count 3.57, Hemoglobin 10.9, Hematocrit 34, Mean Corpuscular Volume 94, Mean Corpuscular Hemoglobin 31, Mean Corpuscular Hemoglobin Concent 32, Red Cell Distribution Width 14.3, Platelet Count 183, Mean Platelet Volume 11.9, Immature Granulocyte % (Auto) 1, Neutrophils (%) (Auto) 80, Lymphocytes (%) (Auto) 12, Monocytes (%) (Auto) 7, Eosinophils (%) (A uto) 0, Basophils (%) (Auto) 0, Neutrophils # (Auto) 15.3, Lymphocytes # (Auto) 2.2, Monocytes # (Auto) 1.3, Eosinophils # (Auto) 0.0, Basophils # (Auto) 0.1, Immature Granulocyte # (Auto) 0.2 02/22/22 15:57: Glucometer 139 02/22/22 20:38: Glucometer 202 02/23/22 05:43: White Blood Count 12.4, Red Blood Count 3.71, Hemoglobin 11.3, Hematocrit 35, Mean Corpuscular Volume 94, Mean Corpuscular Hemoglobin 31, Mean Corpuscular Hemoglobin Concent 32, Red Cell Distribution Width 14.0, Platelet Count 199, Mean Platelet Volume 11.0, Sodium Level 139, Potassium Level 3.8, Chloride Level 110, Carbon Dioxide Level 17, Anion Gap 12, Blood Urea Nitrogen 23, Creatinine 1.17, Estimat Glomerular Filtration Rate 69, BUN/Creatinine Ratio 20, Glucose Level 140, Calcium Level 8.2, Total Bilirubin 0.3, Direct Bilirubin 0.1, Indirect Bilirubin 0.2, Aspartate Amino Transf (AST/SGOT) 28, Alanine Aminotransferase (ALT/SGPT) 27, Alkaline Phosphatase 54, Total Protein 5.5, Albumin 2.9 02/23/22 06:01: Glucometer 146 02/23/22 12:26: Glucometer 270 02/23/22 15:41: Glucometer 239 02/23/22 20:07: Glucometer 255 02/24/22 06:20: White Blood Count 9.8, Red Blood Count 3.72, Hemoglobin 11.2, Hematocrit 35, Mean Corpuscular Volume 93, Mean Corpuscular Hemoglobin 30, Mean Corpuscular Hemoglobin Concent 33, Red Cell Distribution Width 13.9, Platelet Count 224, Mean Platelet Volume 10.9, Immature Granulocyte % (Auto) 2, Neutrophils (%) (Auto) 72, Lymphocytes (%) (Auto) 16, Monocytes (%) (Auto) 9, Eosinophils (%) (Auto) 1, Basophils (%) (Auto) 0, Neutrophils # (Auto) 7.0, Lymphocytes # (Auto) 1.6, Monocytes # (Auto) 0.9, Eosinophils # (Auto) 0.1, Basophils # (Auto) 0.0, Immature Granulocyte # (Auto) 0.2, Sodium Level 141, Potassium Level 3.6, Chloride Level 110, Carbon Dioxide Level 23, Anion Gap 8, Blood Urea Nitrogen 16, Creatinine 1.05, Estimat Glomerular Filtration Rate 78, BUN/Creatinine Ratio 15, Glucose Level 89, Calcium Level 8.3, Corrected Calcium 9.2, Total Bilirubin 0.2, Aspartate Amino Transf (AST/SGOT) 23, Alanine Aminotransferase (ALT/SGPT) 28, Alkaline Phosphatase 54, Total Protein 5.5, Albumin 2.9 02/24/22 06:45: Glucometer 82 Discharge Home Medications: Active Scripts Active Flomax (Tamsulosin HCl) 0.4 Mg Cap 0.4 Mg PO DAILY@1800 Finasteride 5 Mg Tablet 5 Mg PO DAILY Amlodipine Besylate 5 Mg Tablet 5 Mg PO DAILY Furosemide 40 Mg Tablet 40 Mg PO DAILY PRN 7 Days Novolog Flexpen (Insulin Aspart) 300 Units/3 Ml Solution 10 Units SQ BID 7 Days Basaglar Kwikpen U-100 (Insulin Glargine,Hum.rec.anlog) 100 Unit/1 Ml Insuln.pen 24 Unit SQ DAILY 7 Days Plavix (Clopidogrel Bisulfate) 75 Mg Tablet 75 Mg PO DAILY 365 Days Amiodarone HCl 200 Mg Tablet 200 Mg PO BID 30 Days Metformin HCl ER (Metformin HCl) 500 Mg Tab.er.24 1,000 Mg PO BID 30 Days Ondansetron Odt (Ondansetron) 4 Mg Tab.rapdis 4 Mg PO Q6H PRN 5 Days Cefdinir 300 Mg Capsule 300 Mg PO BID 10 Days Reported Prednisolone Acet 1% Eye Drop (Prednisolone Acetate/Pf) 1 % Drops.susp 5 Ml OP DAILY Moxifloxacin (Moxifloxacin HCl) 0.5 % Drops 3 Ml OP DAILY Potassium Chloride 20 Meq Tablet.er 20 Meq PO DAILY Pantoprazole Sodium 40 Mg Tablet.dr 40 Mg PO DAILY Farxiga (Dapagliflozin Propanediol) 10 Mg Tablet 10 Mg PO DAILY Eliquis (Apixaban) 5 Mg Tablet 5 Mg PO BID Aspirin EC (Aspirin) 81 Mg Tablet.dr 81 Mg PO DAILY Toprol Xl (Metoprolol Succinate) 25 Mg Tab.er.24h 25 Mg PO DAILY Diltiazem 24Hr ER (Diltiazem HCl) 180 Mg Cap.er.24h 180 Mg PO DAILY Victoza 3-Leonardo (Liraglutide) 0.6 Mg/0.1 Ml Pen.injctr 1.8 Mg SQ 1800 W/DINNER Lisinopril 40 Mg Tablet 40 Mg PO DAILY Atorvastatin Calcium 40 Mg Tablet 40 Mg PO HS Instructions to patient/family Please see electronic discharge instructions given to patient. MC SPARKS DO Feb 24, 2022 10:27
--- NOTE | 2022-02-24 10:42 | Progress Note ---
Subjective Date Seen by a Provider: Feb 24, 2022 Time Seen by a Provider: 10:00 Subjective/Events-last exam Patient doing well Cysto by Dr Gutierrez revealed large prostate Flomax and Proscar ordered at DC DC tomorrow as long as he can void Review of Systems Genitourinary: Retention Focused Exam Lactate Level 02/21/22 17:15: Lactic Acid Level 2.12*H 02/21/22 19:22: Lactic Acid Level 1.64 Objective Exam Last Set of Vital Signs Vital Signs Date Time Temp Pulse Resp B/P (MAP) Pulse Ox O2 Delivery O2 Flow Rate FiO2 02/24/22 09:00 94 Room Air 02/24/22 07:49 36.7 72 18 165/94 (117) Capillary Refill : Less Than 3 Seconds I&O Intake and Output 02/23/22 23:59 Intake Total 2960 ml Output Total 2600 ml Balance 360 ml Intake Oral 2960 ml Output Urine Total 2600 ml # Bowel Movements 2 General: Alert, Oriented X3, Cooperative, No Acute Distress Lungs: Clear to Auscultation, Normal Air Movement Heart: Regular Rate, Normal S1, Normal S2, No Murmurs Neuro: Normal Gait, Normal Speech, Strength at 5/5 X4 Ext, Normal Tone Psych/Mental Status: Mental Status NL, Mood NL Results Lab Laboratory Tests 02/23/22 12:26: Glucometer 270H 02/23/22 15:41: Glucometer 239H 02/23/22 20:07: Glucometer 255H 02/24/22 06:20: White Blood Count 9.8, Red Blood Count 3.72L, Hemoglobin 11.2L, Hematocrit 35L, Mean Corpuscular Volume 93, Mean Corpuscular Hemoglobin 30, Mean Corpuscular Hemoglobin Concent 33, Red Cell Distribution Width 13.9, Platelet Count 224, M ruma Platelet Volume 10.9, Immature Granulocyte % (Auto) 2, Neutrophils (%) (Auto) 72, Lymphocytes (%) (Auto) 16, Monocytes (%) (Auto) 9, Eosinophils (%) (Auto) 1, Basophils (%) (Auto) 0, Neutrophils # (Auto) 7.0, Lymphocytes # (Auto) 1.6, Monocytes # (Auto) 0.9, Eosinophils # (Auto) 0.1, Basophils # (Auto) 0.0, Immature Granulocyte # (Auto) 0.2H, Sodium Level 141, Potassium Level 3.6, Chloride Level 110H, Carbon Dioxide Level 23, Anion Gap 8, Blood Urea Nitrogen 16, Creatinine 1.05, Estimat Glomerular Filtration Rate 78, BUN/Creatinine Ratio 15, Glucose Level 89, Calcium Level 8.3L, Corrected Calcium 9.2, Total Bilirubin 0.2, Aspartate Amino Transf (AST/SGOT) 23, Alanine Aminotransferase (ALT/SGPT) 28, Alkaline Phosphatase 54, Total Protein 5.5L, Albumin 2.9L 02/24/22 06:45: Glucometer 82 Microbiology 02/21/22 Blood Culture - Preliminary, Resulted No growth 02/21/22 Urine Culture - Final, Complete NO GROWTH Assessment/Plan Assessment/Plan Assess & Plan/Chief Complaint Assessment: Sepsis, severe UTI- klebsiella Urinary retention acute on chronic Kay catheter in place now DC since cysto FEDERICA Continue on IV abx but narrow to Rocephin per UCx HLIVF Added Flomax Urology consult appreciated Creatinine baseline now CAD HTN HLD IDDMI a-fib Obesity No acute needs Continue home meds as able Hold Levemir today as BS without is tolerable SSI DVT ppx: Eliquis Plan: Cysto and DC catheter tomorrow Narrow abx to Rocephin 02/24/22: DC home tomorrow as long as he can void MC SPARKS DO Feb 24, 2022 10:42
[2022-02-24 11:30] VITALS: BP 167/90
[2022-02-24 16:13] VITALS: BP 184/83
--- NOTE | 2022-02-24 16:51 | OPERATIVE REPORT ---
DATE OF SERVICE: 02/24/2022 PREOPERATIVE DIAGNOSES: Urinary retention and BPH. POSTOPERATIVE DIAGNOSES: Urinary retention and BPH. OPERATION PERFORMED: Cystoscopy. SURGEON: Celio Marina MD. ANESTHESIA: Local. COMPLICATIONS: None. DESCRIPTION OF PROCEDURE: With the patient in supine in his bed, the catheter removed, genitalia were prepped and draped in the usual sterile fashion. The urethra was infiltrated with 2% lidocaine jelly and a penile clamp was applied. This was then removed and a flexible cystoscope was introduced under vision. The anterior urethra was normal. The prostate was obstructing with a high bladder neck obstruction and enlargement of the lateral lobes. The bladder was entered, revealed trabeculations, but no foreign body, bladder tumor or stone visualized. Ureteric orifices with clear effluxes. Cystoscopy was confirmed in an antegrade fashion and the cystoscope was removed. The patient tolerated the procedure and anesthesia well, remained in his bed in stable condition. PLAN: We will give him trial of voiding today. If he is unable to void, we will reinsert the Kay. If he voids, we will follow up with bladder scan postvoid residual and straight cath if over 350 or uncomfortable. We will keep the patient overnight to see how he does and tomorrow, we will decide on the next step. We will keep him on the Flomax and the Proscar and follow up at the office. The plan was fully explained to the patient. Job ID: [id number] DocumentID: [id number] Dictated Date: 02/24/2022 10:40:35 Chief Embalmer Date: 02/24/2022 16:50:49 Dictated By: CELIO MARINA MD
[2022-02-24] MEDS: TAMSULOSIN 0.4 MG (FLOMAX) CAP PO SCH (17:00)
[2022-02-24 19:11] VITALS: BP 158/76
[2022-02-24 23:52] VITALS: BP 161/81
[2022-02-25 04:02] VITALS: BP 168/69
[2022-02-25] MEDS: CATHETER FLUSH 10 ML SYR IVP SCH ×2 (06:09→14:18)
[2022-02-25] MEDS: inSUlin ASPART (NovoLOG) 1 UNIT/0.01 ML (CHARGE PER UNIT) SC SCH ×2 (06:09→11:57)
[2022-02-25 06:11] LABS: BASOPHILS # (AUTO) 0.1 10^3/uL (0.0-0.1); BASOPHILS % (AUTO) 0 % (0-10); EOSINOPHILS # (AUTO) 0.1 10^3/uL (0.0-0.3); EOSINOPHILS % (AUTO) 1 % (0-10); HEMATOCRIT 36 % (40-54); HEMOGLOBIN 11.8 g/dL (13.3-17.7); LYMPHOCYTES # (AUTO) 1.5 10^3/uL (1.0-4.0); LYMPHOCYTES % (AUTO) 13 % (12-44); MEAN CORPUSCULAR HEMOGLOBIN 30 pg (25-34); MEAN CORPUSCULAR HGB CONC 33 g/dL (32-36); MEAN CORPUSCULAR VOLUME 93 fL (80-99); MEAN PLATELET VOLUME 10.8 fL (9.0-12.2); MONOCYTES % (AUTO) 8 % (0-12); NEUTROPHILS # (AUTO) 8.7 10^3/uL (1.8-7.8); NEUTROPHILS % (AUTO) 75 % (42-75); PLATELET COUNT 238 10^3/uL (130-400); WHITE BLOOD COUNT 11.5 10^3/uL (4.3-11.0)
[2022-02-25 06:20] LABS: POTASSIUM 3.9 MMOL/L (3.6-5.0)
[2022-02-25 06:21] LABS: CALCIUM 8.4 MG/DL (8.5-10.1)
[2022-02-25 06:22] LABS: TOTAL PROTEIN 5.6 GM/DL (6.4-8.2)
[2022-02-25 06:24] LABS: BILIRUBIN,TOTAL 0.3 MG/DL (0.1-1.0)
[2022-02-25 06:26] LABS: CREATININE SERUM 1.06 MG/DL (0.60-1.30)
--- NOTE | 2022-02-25 06:38 | Discharge Summary ---
Diagnosis/Chief Complaint Date of Admission Feb 22, 2022 at 14:02 Date of Discharge Discharge Date: Feb 24, 2022 Discharge Diagnosis Severe sepsis FEDERICA Pyelonephritis Urinary retention Gutierrez catheter in place DM insulin maintained HTN Discharge Summary Discharge Physical Examination Allergies: Coded Allergies: phenytoin (Unverified Allergy, Unknown, 11/19/20) Vitals & I&Os Vital Signs Date Time Temp Pulse Resp B/P (MAP) Pulse Ox O2 Delivery O2 Flow Rate FiO2 02/25/22 15:50 36.4 73 18 151/72 95 Room Air General Appearance: Alert, Oriented X3, Cooperative Respiratory: Clear to Auscultation Cardiovascular: Regular Rate Neuro: Normal Gait, Normal Speech, Strength at 5/5 X4 Ext Psych/Mental Status: Mental Status NL Hospital Course Was the Problem List Reviewed?: Yes Uneventful course after admitted shortly after going to ER 1 day prior for urinary retention and gutierrez catheter placed with Omnicef given of which he took 2 doses before feeling worse and went to ER and was admitted for severe sepsis with FEDERICA and Pyelonephritis. Cefepime initiated and ultimately the UCx revealed an opportunity to narrow spectrum to Rocephin and ultimately DC back on the Omnicef to finish up. Dr Gutierrez consulted who performed cystoscopy and removed catheter and patient was able to void after maintained on Flomax and Proscar. Cystoscopy revealed BPH. Overall he did well and was DC in improved condition on lower dose of insulin until recovered. He will see me 03/06/22. Labs (last 24 hrs) Laboratory Tests 02/21/22 17:05: White Blood Count 26.8H, Red Blood Count 4.23L, Hemoglobin 13.0L, Hematocrit 39L , Mean Corpuscular Volume 93, Mean Corpuscular Hemoglobin 31, Mean Corpuscular Hemoglobin Concent 33, Red Cell Distribution Width 14.2, Platelet Count 200, Mean Platelet Volume 12.0, Immature Granulocyte % (Auto) 2, Neutrophils (%) (Auto) 87H, Lymphocytes (%) (Auto) 5L, Monocytes (%) (Auto) 6, Eosinophils (%) (Auto) 0, Basophils (%) (Auto) 0, Neutrophils # (Auto) 23.3H, Lymphocytes # (Auto) 1.4, Monocytes # (Auto) 1.7H, Eosinophils # (Auto) 0.0, Basophils # (Au to) 0.1, Immature Granulocyte # (Auto) 0.4H, Neutrophils % (Manual) 90, Lymphocytes % (Manual) 5, Monocytes % (Manual) 5, Polychromasia MODERATE, [place] Cells MODERATE, Elliptocytes MODERATE, Urine Color YELLOW, Urine Clarity CLEAR, Urine pH 5.5, Urine Specific [place] 1.010L, Urine Protein NEGATIVE, Urine Glucose (UA) 3+H, Urine Ketones NEGATIVE, Urine Nitrite NEGATIVE, Urine Bilirubin NEGATIVE, Urine Urobilinogen 0.2, Urine Leukocyte Esterase NEGATIVE, Urine RBC (Auto) 2+H, Urine RBC NONE, Urine WBC 5-10H, Urine Squamous Epithelial Cells 0-2, Urine Renal Epithelial Cells NONE, Urine Crystals NONE, Urine Bacteria FEWH, Urine Casts NONE, Urine Mucus NEGATIVE, Urine Culture Indicated YES, Sodium Level 134L, Potassium Level 4.2, Chloride Level 101, Carbon Dioxide Level 19L, Anion Gap 14, Blood Urea Nitrogen 29H, Creatinine 2.46H, Estimat Glomerular Filtration Rate 28, BUN/Creatinine Ratio 12, Glucose Level 357H, Calcium Level 8.9, Corrected Calcium 9.5, Total Bilirubin 0.5, Aspartate Amino Transf (AST/SGOT) 35H, Alanine Aminotransferase (ALT/SGPT) 25, Alkaline Phosphatase 61, C-Reactive Protein High Sensitivity 34.94H, Total Protein 6.1L, Albumin 3.3, Lipase 59, Beta-Hydroxybutyrate (Chem panel) 0.57H 02/21/22 17:15: Lactic Acid Level 2.12*H 02/21/22 19:22: Lactic Acid Level 1.64 02/22/22 05:25: Sodium Level 140, Potassium Level 4.3, Chloride Level 110H, Carbon Dioxide Level 18L, Anion Gap 12, Blood Urea Nitrogen 29H, Creatinine 1.69H, Estimat Glomerular Filtration Rate 44, BUN/Creatinine Ratio 17, Glucose Level 140H, Calcium Level 8.3L 02/22/22 06:06: White Blood Count 19.0H, Red Blood Count 3.57L, Hemoglobin 10.9L, Hematocrit 34L , Mean Corpuscular Volume 94, Mean Corpuscular Hemoglobin 31, Mean Corpuscular Hemoglobin Concent 32, Red Cell Distribution Width 14.3, Platelet Count 183, Mean Platelet Volume 11.9, Immature Granulocyte % (Auto) 1, Neutrophils (%) (Auto) 80H, Lymphocytes (%) (Auto) 12, Monocytes (%) (Auto) 7, Eosinophils (%) (Auto) 0, Basophils (%) (Auto) 0, Neutrophils # (Auto) 15.3H, Lymphocytes # (Auto) 2.2, Monocytes # (Auto) 1.3H, Eosinophils # (Auto) 0.0, Basophils # (Auto) 0.1, Immature Granulocyte # (Auto) 0.2H 02/22/22 14:02: Lab Scanned Report Referred Lab Report 02/22/22 15:57: Glucometer 139H 02/22/22 20:38: Glucometer 202H 02/23/22 05:43: White Blood Count 12.4H, Red Blood Count 3.71L, Hemoglobin 11.3L, Hematocrit 35L , Mean Corpuscular Volume 94, Mean Corpuscular Hemoglobin 31, Mean Corpuscular Hemoglobin Concent 32, Red Cell Distribution Width 14.0, Platelet Count 199, Mean Platelet Volume 11.0, Sodium Level 139, Potassium Level 3.8, Chloride Level 110H, Carbon Dioxide Level 17L, Anion Gap 12, Blood Urea Nitrogen 23H, Creatinine 1.17, Estimat Glomerular Filtration Rate 69, BUN/Creatinine Ratio 20, Glucose Level 140H, Calcium Level 8.2L, Total Bilirubin 0.3, Direct Bilirubin 0.1, Indirect Bilirubin 0.2, Aspartate Amino Transf (AST/SGOT) 28, Alanine Aminotransferase (ALT/SGPT) 27, Alkaline Phosphatase 54, Total Protein 5.5L, Albumin 2.9L 02/23/22 06:01: Glucometer 146H 02/23/22 12:26: Glucometer 270H 02/23/22 15:41: Glucometer 239H 02/23/22 20:07: Glucometer 255H 02/24/22 06:20: White Blood Count 9.8, Red Blood Count 3.72L, Hemoglobin 11.2L, Hematocrit 35L, Mean Corpuscular Volume 93, Mean Corpuscular Hemoglobin 30, Mean Corpuscular Hemoglobin Concent 33, Red Cell Distribution Width 13.9, Platelet Count 224, Mean Platelet Volume 10.9, Immature Granulocyte % (Auto) 2, Neutrophils (%) (Auto) 72, Lymphocytes (%) (Auto) 16, Monocytes (%) (Auto) 9, Eosinophils (%) (Auto) 1, Basophils (%) (Auto) 0, Neutrophils # (Auto) 7.0, Lymphocytes # (Auto) 1.6, Monocytes # (Auto) 0.9, Eosinophils # (Auto) 0.1, Basophils # (Auto) 0.0, Immature Granulocyte # (Auto) 0.2H, Sodium Level 141, Potassium Level 3.6, Chloride Level 110H, Carbon Dioxide Level 23, Anion Gap 8, Blood Urea Nitrogen 16, Creatinine 1.05, Estimat Glomerular Filtration Rate 78, BUN/Creatinine Ratio 15, Glucose Level 89, Calcium Level 8.3L, Corrected Calcium 9.2, Total Bilirubin 0.2, Aspartate Amino Transf (AST/SGOT) 23, Alanine Aminotransferase (ALT/SGPT) 28, Alkaline Phosphatase 54, Total Protein 5.5L, Albumin 2.9L 02/24/22 06:45: Glucometer 82 02/24/22 13:49: Glucometer 159H 02/24/22 16:17: Glucometer 196H 02/24/22 20:05: Glucometer 319H 02/25/22 05:00: White Blood Count 11.5H, Red Blood Count 3.90L, Hemoglobin 11.8L, Hematocrit 36L , Mean Corpuscular Volume 93, Mean Corpuscular Hemoglobin 30, Mean Corpuscular Hemoglobin Concent 33, Red Cell Distribution Width 13.6, Platelet Count 238, Mean Platelet Volume 10.8, Immature Granulocyte % (Auto) 2, Neutrophils (%) (Auto) 75, Lymphocytes (%) (Auto) 13, Monocytes (%) (Auto) 8, Eosinophils (%) (Auto) 1, Basophils (%) (Auto) 0, Neutrophils # (Auto) 8.7H, Lymphocytes # (Auto) 1.5, Monocytes # (Auto) 1.0, Eosinophils # (Auto) 0.1, Basophils # (Auto) 0.1, Immature Granulocyte # (Auto) 0.2H, Sodium Level 140, Potassium Level 3.9, Chloride Level 108H, Carbon Dioxide Level 21, Anion Gap 11, Blood Urea Nitrogen 15, Creatinine 1.06, Estimat Glomerular Filtration Rate 77, BUN/Creatinine Ratio 14, Glucose Level 236H, Calcium Level 8.4L, Corrected Calcium 9.2, Total Bilirubin 0.3, Aspartate Amino Transf (AST/SGOT) 21, Alanine Aminotransferase (ALT/SGPT) 29, Alkaline Phosphatase 56, Total Protein 5.6L, Albumin 3.0L 02/25/22 05:19: Glucometer 204H 02/25/22 07:14: Glucometer 203H 02/25/22 11:20: Glucometer 265H 02/25/22 15:27: Glucometer 242H Microbiology 02/21/22 Blood Culture - Preliminary, Resulted No growth 02/21/22 Urine Culture - Final, Complete NO GROWTH Pending Labs Microbiology Date/Time Source Procedure Growth Status 02/21/22 17:35 Peripheral Rt Ac Blood Culture - Preliminary No growth Resulted 02/21/22 17:15 Peripheral Lt Hand Blood Culture - Preliminary No growth Resulted 02/21/22 17:05 Urine Indwelling Cath (Emergency Room Specialist) Urine Culture - Final NO GROWTH Complete Laboratory Tests 02/21/22 17:05: White Blood Count 26.8, Red Blood Count 4.23, Hemoglobin 13.0, Hematocrit 39, Mean Corpuscular Volume 93, Mean Corpuscular Hemoglobin 31, Mean Corpuscular Hemoglobin Concent 33, Red Cell Distribution Width 14.2, Platelet Count 200, Mean Platelet Volume 12.0, Immature Granulocyte % (Auto) 2, Neutrophils (%) (Auto) 87, Lymphocytes (%) (Auto) 5, Monocytes (%) (Auto) 6, Eosinophils (%) (Auto) 0, Basophils (%) (Auto) 0, Neutrophils # (Auto) 23.3, Lymphocytes # (Auto) 1.4, Monocytes # (Auto) 1.7, Eosinophils # (Auto) 0.0, Basophils # (Auto) 0.1, Immature Granulocyte # (Auto) 0.4, Neutrophils % (Manual) 90, Lymphocytes % (Manual) 5, Monocytes % (Manual) 5, Polychromasia MODERATE, [place] Cells MODERATE, Elliptocytes MODERATE, Urine Color YELLOW, Urine Clarity CLEAR, Urine pH 5.5, Urine Specific [place] 1.010, Urine Protein NEGATIVE, Urine Glucose (UA) 3+, Urine Ketones NEGATIVE, Urine Nitrite NEGATIVE, Urine Bilirubin NEGATIVE, Urine Urobilinogen 0.2, Urine Leukocyte Esterase NEGATIVE, Urine RBC (Auto) 2+, Urine RBC NONE, Urine WBC 5-10, Urine Squamous Epithelial Cells 0-2, Urine Renal Epithelial Cells NONE, Urine Crystals NONE, Urine Bacteria FEW, Urine Casts NONE, Urine Mucus NEGATIVE, Urine Culture Indicated YES, Sodium Level 134, Potassium Level 4.2, Chloride Level 101, Carbon Dioxide Level 19, Anion Gap 14, Blood Urea Nitrogen 29, Creatinine 2.46, Estimat Glomerular Filtration Rate 28, BUN/Creatinine Ratio 12, Glucose Level 357, Calcium Level 8.9, Corrected Calcium 9.5, Total Bilirubin 0.5, Aspartate Amino Transf (AST/SGOT) 35, Alanine Aminotransferase (ALT/SGPT) 25, Alkaline Phosphatase 61, C-Reactive Protein High Sensitivity 34.94, Total Protein 6.1, Albumin 3.3, Lipase 59, Beta- Hydroxybutyrate (Chem panel) 0.57 02/21/22 17:15: Lactic Acid Level 2.12 02/21/22 19:22: Lactic Acid Level 1.64 02/22/22 05:25: Sodium Level 140, Potassium Level 4.3, Chloride Level 110, Carbon Dioxide Level 18, Anion Gap 12, Blood Urea Nitrogen 29, Creatinine 1.69, Estimat Glomerular Filtration Rate 44, BUN/Creatinine Ratio 17, Glucose Level 140, Calcium Level 8.3 02/22/22 06:06: White Blood Count 19.0, Red Blood Count 3.57, Hemoglobin 10.9, Hematocrit 34, Mean Corpuscular Volume 94, Mean Corpuscular Hemoglobin 31, Mean Corpuscular Hemoglobin Concent 32, Red Cell Distribution Width 14.3, Platelet Count 183, Mean Platelet Volume 11.9, Immature Granulocyte % (Auto) 1, Neutrophils (%) (Auto) 80, Lymphocytes (%) (Auto) 12, Monocytes (%) (Auto) 7, Eosinophils (%) (Auto) 0, Basophils (%) (Auto) 0, Neutrophils # (Auto) 15.3, Lymphocytes # (Auto) 2.2, Monocytes # (Auto) 1.3, Eosinophils # (Auto) 0.0, Basophils # (Auto) 0.1, Immature Granulocyte # (Auto) 0.2 02/22/22 14:02: Lab Scanned Report Referred Lab Report 02/22/22 15:57: Glucometer 139 02/22/22 20:38: Glucometer 202 02/23/22 05:43: White Blood Count 12.4, Red Blood Count 3.71, Hemoglobin 11.3, Hematocrit 35, Mean Corpuscular Volume 94, Mean Corpuscular Hemoglobin 31, Mean Corpuscular Hemoglobin Concent 32, Red Cell Distribution Width 14.0, Platelet Count 199, Mean Platelet Volume 11.0, Sodium Level 139, Potassium Level 3.8, Chloride Level 110, Carbon Dioxide Level 17, Anion Gap 12, Blood Urea Nitrogen 23, Creatinine 1.17, Estimat Glomerular Filtration Rate 69, BUN/Creatinine Ratio 20, Glucose Level 140, Calcium Level 8.2, Total Bilirubin 0.3, Direct Bilirubin 0.1, Indirect Bilirubin 0.2, Aspartate Amino Transf (AST/SGOT) 28, Alanine Aminotransferase (ALT/SGPT) 27, Alkaline Phosphatase 54, Total Protein 5.5, Albumin 2.9 02/23/22 06:01: Glucometer 146 02/23/22 12:26: Glucometer 270 02/23/22 15:41: Glucometer 239 02/23/22 20:07: Glucometer 255 02/24/22 06:20: White Blood Count 9.8, Red Blood Count 3.72, Hemoglobin 11.2, Hematocrit 35, Mean Corpuscular Volume 93, Mean Corpuscular Hemoglobin 30, Mean Corpuscular Hemoglobin Concent 33, Red Cell Distribution Width 13.9, Platelet Count 224, Mean Platelet Volume 10.9, Immature Granulocyte % (Auto) 2, Neutrophils (%) (Auto) 72, Lymphocytes (%) (Auto) 16, Monocytes (%) (Auto) 9, Eosinophils (%) (Auto) 1, Basophils (%) (Auto) 0, Neutrophils # (Auto) 7.0, Lymphocytes # (Auto) 1.6, Monocytes # (Auto) 0.9, Eosinophils # (Auto) 0.1, Basophils # (Auto) 0.0, Immature Granulocyte # (Auto) 0.2, Sodium Level 141, Potassium Level 3.6, Chloride Level 110, Carbon Dioxide Level 23, Anion Gap 8, Blood Urea Nitrogen 16, Creatinine 1.05, Estimat Glomerular Filtration Rate 78, BUN/Creatinine Ratio 15, Glucose Level 89, Calcium Level 8.3, Corrected Calcium 9.2, Total Bilirubin 0.2, Aspartate Amino Transf (AST/SGOT) 23, Alanine Aminotransferase (ALT/SGPT) 28, Alkaline Phosphatase 54, Total Protein 5.5, Albumin 2.9 02/24/22 06:45: Glucometer 82 02/24/22 13:49: Glucometer 159 02/24/22 16:17: Glucometer 196 02/24/22 20:05: Glucometer 319 02/25/22 05:00: White Blood Count 11.5, Red Blood Count 3.90, Hemoglobin 11.8, Hematocrit 36, Mean Corpuscular Volume 93, Mean Corpuscular Hemoglobin 30, Mean Corpuscular Hemoglobin Concent 33, Red Cell Distribution Width 13.6, Platelet Count 238, Mean Platelet Volume 10.8, Immature Granulocyte % (Auto) 2, Neutrophils (%) (Auto) 75, Lymphocytes (%) (Auto) 13, Monocytes (%) (Auto) 8, Eosinophils (%) (Auto) 1, Basophils (%) (Auto) 0, Neutrophils # (Auto) 8.7, Lymphocytes # (Auto) 1.5, Monocytes # (Auto) 1.0, Eosinophils # (Auto) 0.1, Basophils # (Auto) 0.1, Immature Granulocyte # (Auto) 0.2, Sodium Level 140, Potassium Level 3.9, Chloride Level 108, Carbon Dioxide Level 21, Anion Gap 11, Blood Urea Nitrogen 15, Creatinine 1.06, Estimat Glomerular Filtration Rate 77, BUN/Creatinine Ratio 14, Glucose Level 236, Calcium Level 8.4, Corrected Calcium 9.2, Total Bilirubin 0.3, Aspartate Amino Transf (AST/SGOT) 21, Alanine Aminotransferase (ALT/SGPT) 29, Alkaline Phosphatase 56, Total Protein 5.6, Albumin 3.0 02/25/22 05:19: Glucometer 204 02/25/22 07:14: Glucometer 203 02/25/22 11:20: Glucometer 265 02/25/22 15:27: Glucometer 242 Discharge Home Medications: Active Scripts Active Flomax (Tamsulosin HCl) 0.4 Mg Cap 0.4 Mg PO DAILY@1800 Finasteride 5 Mg Tablet 5 Mg PO DAILY Amlodipine Besylate 5 Mg Tablet 5 Mg PO DAILY Furosemide 40 Mg Tablet 40 Mg PO DAILY PRN 7 Days Novolog Flexpen (Insulin Aspart) 300 Units/3 Ml Solution 10 Units SQ BID 7 Days Basaglar Kwikpen U-100 (Insulin Glargine,Hum.rec.anlog) 100 Unit/1 Ml Insuln.pen 24 Unit SQ DAILY 7 Days Plavix (Clopidogrel Bisulfate) 75 Mg Tablet 75 Mg PO DAILY 365 Days Amiodarone HCl 200 Mg Tablet 200 Mg PO BID 30 Days Metformin HCl ER (Metformin HCl) 500 Mg Tab.er.24 1,000 Mg PO BID 30 Days Ondansetron Odt (Ondansetron) 4 Mg Tab.rapdis 4 Mg PO Q6H PRN 5 Days Cefdinir 300 Mg Capsule 300 Mg PO BID 10 Days Reported Prednisolone Acet 1% Eye Drop (Prednisolone Acetate/Pf) 1 % Drops.susp 5 Ml OP DAILY Moxifloxacin (Moxifloxacin HCl) 0.5 % Drops 3 Ml OP DAILY Pantoprazole Sodium 40 Mg Tablet.dr 40 Mg PO DAILY Eliquis (Apixaban) 5 Mg Tablet 5 Mg PO BID Aspirin EC (Aspirin) 81 Mg Tablet.dr 81 Mg PO DAILY Toprol Xl (Metoprolol Succinate) 25 Mg Tab.er.24h 25 Mg PO DAILY Diltiazem 24Hr ER (Diltiazem HCl) 180 Mg Cap.er.24h 180 Mg PO DAILY Victoza 3-Leonardo (Liraglutide) 0.6 Mg/0.1 Ml Pen.injctr 1.8 Mg SQ 1800 W/DINNER Atorvastatin Calcium 40 Mg Tablet 40 Mg PO HS Instructions to patient/family Please see electronic discharge instructions given to patient. MC SPARKS DO Feb 25, 2022 06:38
[2022-02-25 08:04] VITALS: BP 179/86
[2022-02-25] MEDS: cefTRIAXone 1 GM PRE-MIX 50 ML IV SCH (08:18)
[2022-02-25] MEDS: CLOPIDOGREL 75 MG (PLAVIX) TABLET PO SCH (08:19)
[2022-02-25] MEDS: amLODIPine 5 MG (NORVASC) TAB PO SCH (08:19)
[2022-02-25] MEDS: FINASTERIDE (PROSCAR) 5 MG TAB PO SCH (08:19)
[2022-02-25] MEDS: APIXABAN 5 MG (ELIQUIS) TABLET PO SCH (08:24)
[2022-02-25] MEDS: prednisoLONE 1% OPTH (PRED FORTE) 5 ML BTL OS SCH ×2 (08:25→11:58)
[2022-02-25] MEDS: ASPIRIN E.C. 81 MG (ECOTRIN) TAB PO SCH (08:25)
[2022-02-25] MEDS: AMIODARONE 200 MG (CORDARONE) TAB PO SCH (08:26)
[2022-02-25] MEDS: MOXIFLOXACIN OPHTH SOLN 5 MG/ML 0.3 ML SYRINGE OS SCH ×2 (08:28→11:58)
[2022-02-25] MEDS ORDERED: DOCUSATE SODIUM 100 MG (COLACE) CAP PO ONE (09:00)
[2022-02-25] MEDS ORDERED: SENNA W/DOCUSATE (SENOKOT S) TABLET PO SCH (09:00)
[2022-02-25] MEDS ORDERED: SENNA W/DOCUSATE (SENOKOT S) TABLET PO ONE (09:00)
[2022-02-25] MEDS ORDERED: DOCUSATE SODIUM 100 MG (COLACE) CAP PO SCH (09:00)
--- NOTE | 2022-02-25 10:16 | Progress Note - Urology ---
Progress Note-Urology Progress Notes/Assess & Plan Progress/Assessment & Plan VOIDING WELL. PVR 40CC. OK TO DISCHARGE ON FLOMAX AND PROSCAR AND OFFICE NEXT WEEK. PLAN COMPLETE WORK UP ALL FULLY EXPLAINED TO PATIENT Final Diagnosis RETENTION MEGAN MARINA MD Feb 25, 2022 10:16
[2022-02-25 12:01] VITALS: BP 165/79
[2022-02-25 15:23] VITALS: BP 151/72
[2022-02-25 15:50] VITALS: BP 151/72
== END 2022-02-25 15:50 | disposition home or self-care (01) | DRG 872 ==
LOC: EDUNIT# 15:38 → ER 15:39 → CSD 19:01 → 4TH 02-22 12:44 → OBSVTOIN 02-22 14:02 → 4TH 02-25 13:07
PROVIDERS: ADMIT Family Medicine; ATTEND Internal Medicine
PROC: 0TJB8ZZ Inspection of Bladder, Via Natural or Artificial Opening Endoscopic (ICD-10-PCS; principal; 2022-02-24 10:05)
DX: A41.59 Other Gram-negative sepsis (principal); N12 Tubulo-interstitial nephritis, not specified as acute or chronic; N17.9 Acute kidney failure, unspecified; R65.20 Severe sepsis without septic shock; N40.1 Benign prostatic hyperplasia with lower urinary tract symptoms; R33.8 Other retention of urine; E86.0 Dehydration; R39.198 Other difficulties with micturition; I48.0 Paroxysmal atrial fibrillation; I25.10 Atherosclerotic heart disease of native coronary artery without angina pectoris; I12.9 Hypertensive chronic kidney disease with stage 1 through stage 4 chronic kidney disease, or unspecified chronic kidney disease; E11.22 Type 2 diabetes mellitus with diabetic chronic kidney disease; N18.9 Chronic kidney disease, unspecified; E11.65 Type 2 diabetes mellitus with hyperglycemia; E11.319 Type 2 diabetes mellitus with unspecified diabetic retinopathy without macular edema; E78.00 Pure hypercholesterolemia, unspecified; E78.5 Hyperlipidemia, unspecified; H35.30 Unspecified macular degeneration; E66.9 Obesity, unspecified; Z79.4 Long term (current) use of insulin; Z79.84 Long term (current) use of oral hypoglycemic drugs; Z68.34 Body mass index [BMI] 34.0-34.9, adult; Z95.5 Presence of coronary angioplasty implant and graft; Z79.01 Long term (current) use of anticoagulants; Z79.02 Long term (current) use of antithrombotics/antiplatelets; Z79.82 Long term (current) use of aspirin; Z88.8 Allergy status to other drugs, medicaments and biological substances
CPT/HCPCS: 36415; 74176; 80048; 80053; 80076; 81000; 82010; 82947; 83605; 83690; 85007; 85025; 85027; 86141; 87040; 87088; G0378

== ENCOUNTER → 2022-03-12 | Outpatient (CLI) | payer MEDICARE ==
[~2022-03-12] MED LIST changes: +AMIO200T65 PO; +CLOP75TA69 PO; +FINA5TAB6 PO; +MOXI3DRO11 OP; +PRED5DRO24 OP; +TMSL.4C PO
== END ==
LOC: LAB 10:19
PROVIDERS: ATTEND Urology
DX: N40.1 Benign prostatic hyperplasia with lower urinary tract symptoms (principal)
CPT/HCPCS: 36415; 84153

== ENCOUNTER → 2022-03-12 | Outpatient (CLI) | payer MEDICARE ==
[2022-03-12 11:10] LABS: HEMATOCRIT 39 % (40-54); HEMOGLOBIN 12.5 g/dL (13.3-17.7); MEAN CORPUSCULAR HEMOGLOBIN 30 pg (25-34); MEAN CORPUSCULAR HGB CONC 32 g/dL (32-36); MEAN CORPUSCULAR VOLUME 94 fL (80-99); MEAN PLATELET VOLUME 11.5 fL (9.0-12.2); PLATELET COUNT 327 10^3/uL (130-400); WHITE BLOOD COUNT 8.6 10^3/uL (4.3-11.0)
[2022-03-12 11:16] LABS: BILIRUBIN,URINE NEGATIVE (NEGATIVE); CLARITY,URINE CLEAR; COLOR,URINE YELLOW; GLUCOSE, URINE (UA) 3+ (NEGATIVE); KETONES,URINE NEGATIVE (NEGATIVE); LEUKOCYTE ESTERASE ,URINE NEGATIVE (NEGATIVE); NITRITE,URINE NEGATIVE (NEGATIVE); PROTEIN,URINE NEGATIVE (NEGATIVE)
[2022-03-12 11:35] LABS: ALBUMIN 3.8 GM/DL (3.2-4.5); BILIRUBIN,TOTAL 0.4 MG/DL (0.1-1.0); CALCIUM 9.1 MG/DL (8.5-10.1); CREATININE SERUM 1.64 MG/DL (0.60-1.30); POTASSIUM 4.3 MMOL/L (3.6-5.0); TOTAL PROTEIN 6.3 GM/DL (6.4-8.2)
[2022-03-12 11:46] LABS: BACTERIA,URINE NEGATIVE /HPF; HYALINE CASTS, URINE RARE /LPF; RBC,URINE RARE /HPF; SQUAMOUS EPITHELIAL CELL,UR RARE /HPF
[2022-03-12 11:48] LABS: ERYTHROCYTE SEDIMENTATION RATE 10 MM/HR (0-30)
== END ==
LOC: LAB 10:15
PROVIDERS: ATTEND Internal Medicine
DX: D64.9 Anemia, unspecified (principal); A41.9 Sepsis, unspecified organism
CPT/HCPCS: 36415; 80053; 81000; 82607; 82746; 84443; 85027; 85652

== ENCOUNTER 2022-03-18 09:30 | Day surgery (SDC) | payer MEDICARE ==
[~2022-03-18] VITALS: Ht 165 cm; Wt 99.8 kg
[2022-03-18 08:46] VITALS: BP 145/88
[~2022-03-18 09:30] MED LIST changes: +LIDOCAINE 1% INJ 20 ML VIAL ONE
--- NOTE | 2022-03-18 09:56 | Implantation of Loop Monitor ---
Implant of Loop Monitior IMPLANTATION OF LOOP MONITOR REPORT DATE OF PROCEDURE: 03/18/22 PREOP DIAGNOSIS: Paroxysmal atrial fibrillation POSTOP DIAGNOSIS: Paroxysmal atrial fibrillation PROCEDURE DETAILS: The patient is a 66 male with history of paroxysmal atrial fibrillation requiring long-term surveillance. Therefore implantable loop recorder was discussed and agreed with the patient. Informed consent was taken. All risks and complications were discussed at length. The patient was draped and prepped in the usual sterile fashion. Local anesthesia was lidocaine, which was given in the substernal area close to the 4th intercostal space. Loop monitor [employer] with serial number [id number] was implanted according to the protocol. Steri- Strips were placed at the end of the procedure. There were no complications and the patient tolerated the procedure well. ANESTHESIA: Local anesthesia with lidocaine. COMPLICATIONS: None CONTRAST/FLUOROSCOPY: None CONCLUSION: Successful implantation of loop monitor with no complication FINAL DIAGNOSIS: Paroxysmal atrial fibrillation Palpitation LORIE CLEMONS MD Mar 18, 2022 09:56
== END 2022-03-18 10:23 | disposition home or self-care (01) ==
LOC: CATH 09:30
PROVIDERS: ATTEND Internal Medicine Cardiovascular Disease
DX: I48.0 Paroxysmal atrial fibrillation (principal); I48.20 Chronic atrial fibrillation, unspecified; I10 Essential (primary) hypertension; I25.10 Atherosclerotic heart disease of native coronary artery without angina pectoris; E11.9 Type 2 diabetes mellitus without complications; E78.5 Hyperlipidemia, unspecified; Z79.82 Long term (current) use of aspirin; Z79.01 Long term (current) use of anticoagulants; Z79.4 Long term (current) use of insulin; Z79.899 Other long term (current) drug therapy
CPT/HCPCS: 33285; C1764

== ENCOUNTER 2022-03-25 10:00 | Outpatient (CLI) | payer MEDICARE ==
[~2022-03-25 10:00] MED LIST changes: -LIDOCAINE 1% INJ 20 ML VIAL ONE
== END 2022-03-25 10:25 ==
LOC: SLEEP 10:00
PROVIDERS: ATTEND Internal Medicine Cardiovascular Disease
DX: G47.33 Obstructive sleep apnea (adult) (pediatric) (principal); G47.00 Insomnia, unspecified; G47.10 Hypersomnia, unspecified; I10 Essential (primary) hypertension; I49.9 Cardiac arrhythmia, unspecified; I25.10 Atherosclerotic heart disease of native coronary artery without angina pectoris; I48.0 Paroxysmal atrial fibrillation; I48.20 Chronic atrial fibrillation, unspecified; R60.0 Localized edema
CPT/HCPCS: G0399

== ENCOUNTER → 2022-05-27 | Outpatient (CLI) | payer MEDICARE | LOC: CARD 09:30 | PROVIDERS: ATTEND Physician Assistant | DX: I10 Essential (primary) hypertension (principal); I25.10 Atherosclerotic heart disease of native coronary artery without angina pectoris | CPT/HCPCS: 93306 ==

== ENCOUNTER → 2022-09-09 | Outpatient (CLI) | payer MEDICARE ==
[~2022-09-09] MED LIST changes: +CLOP-31 PO; -CLOP75TA69 PO
[2022-09-09 12:03] LABS: ALBUMIN 3.9 GM/DL (3.2-4.5); BILIRUBIN,TOTAL 0.4 MG/DL (0.1-1.0); CREATININE SERUM 1.27 MG/DL (0.60-1.30); POTASSIUM 3.5 MMOL/L (3.6-5.0); TOTAL PROTEIN 6.6 GM/DL (6.4-8.2)
== END ==
LOC: LAB 11:15
PROVIDERS: ATTEND Internal Medicine Cardiovascular Disease
DX: I10 Essential (primary) hypertension (principal); I48.0 Paroxysmal atrial fibrillation; I25.10 Atherosclerotic heart disease of native coronary artery without angina pectoris; I48.91 Unspecified atrial fibrillation; R60.0 Localized edema; I48.20 Chronic atrial fibrillation, unspecified; I65.29 Occlusion and stenosis of unspecified carotid artery; E78.2 Mixed hyperlipidemia
CPT/HCPCS: 36415; 80053

== ENCOUNTER → 2022-09-16 | Outpatient (CLI) | payer MEDICARE ==
[2022-09-16 11:59] LABS: ALBUMIN 3.9 GM/DL (3.2-4.5); BILIRUBIN,TOTAL 0.4 MG/DL (0.1-1.0); CALCIUM 8.9 MG/DL (8.5-10.1); CREATININE SERUM 1.42 MG/DL (0.60-1.30); TOTAL PROTEIN 6.6 GM/DL (6.4-8.2)
== END ==
LOC: LAB 11:23
PROVIDERS: ATTEND Internal Medicine Cardiovascular Disease
DX: I10 Essential (primary) hypertension (principal)
CPT/HCPCS: 36415; 80053

== ENCOUNTER → 2022-09-26 | Outpatient (CLI) | payer MEDICARE ==
[2022-09-26 10:35] LABS: ALBUMIN 4.1 GM/DL (3.2-4.5); POTASSIUM 3.7 MMOL/L (3.6-5.0)
[2022-09-26 10:36] LABS: CALCIUM 9.2 MG/DL (8.5-10.1)
[2022-09-26 10:38] LABS: TOTAL PROTEIN 6.8 GM/DL (6.4-8.2)
[2022-09-26 10:39] LABS: BILIRUBIN,TOTAL 0.4 MG/DL (0.1-1.0)
[2022-09-26 10:41] LABS: CREATININE SERUM 1.35 MG/DL (0.60-1.30)
== END ==
LOC: LAB 10:04
PROVIDERS: ATTEND Internal Medicine
DX: Z13.6 Encounter for screening for cardiovascular disorders (principal); E11.65 Type 2 diabetes mellitus with hyperglycemia; I10 Essential (primary) hypertension
CPT/HCPCS: 36415; 80053; 82465; 83036; 84478

== ENCOUNTER 2023-04-13 13:07 | Observation (INO) | payer MEDICARE ==
[~2023-04-13] VITALS: Ht 165 cm; Wt 93.9 kg
[2023-04-13] VITALS (12 sets, daily range): BP systolic 88–181; BP diastolic 56–100
[~2023-04-13 13:07] MED LIST changes: +POTA-330 PO; -POTA-51 PO; -POTA10CA43 PO; +POTA10CA84 PO
--- NOTE | 2023-04-13 13:26 | ED General ---
General Chief Complaint: Dizziness/Syncope Stated Complaint: ABLATION | FAINTING SPELLS | LOW BLOOD PRESSURE Nursing Triage Note: PT STATES 2 WKS AGO HAD AN ABLATION DONE AT , HAD A PERICARDIALCENTESIS ON 03/30 AND 300 MLS REMOVED. PASSED OUT 2 TIMES THIS MORNING, DENIES CHEST PAIN OR SOB JUST GETS LIGHT HEADED AND PASSES OUT. Source of Information: Patient Exam Limitations: No Limitations History of Present Illness Date Seen by Provider: Apr 13, 2023 Time Seen by Provider: 13:17 Initial Comments 67-year-old male with history of atrial fibrillation status post cardiac ablation on 03/30 which was compromised by significant pericardial effusion and emergent pericardiocentesis. He was discharged from the hospital about a week ago and the pericardial catheter was removed a couple of days ago. He states since his discharge from the hospital he has "gone downhill." He has extreme fatigue and states that anytime he gets up to walk even short distances he feels like he is going to pass out. He states in fact that if he does not go to sit down and rest he has passed out on a couple of occasions. He denies any chest pain or shortness of breath. He states he has a sensation and can tell when he is going to pass out and he describes this as lightheadedness and tunneling of his vision. No fevers or chills. If he sits or lies down and does not move much she does not have really any symptoms. He called Dr. Busby's office today and was advised to come to the emergency department. Notably when he left the hospital he was discharged on several new medications. He thinks his medications may be causing some of his symptoms. He did not take any of his medications today per his report. All other systems reviewed and negative except documented per HPI. Voice recognition software was used to help create this chart Allergies and Home Medications Allergies Coded Allergies: hydromorphone (Verified Allergy, Unknown, 04/13/23) MAKES HIM SICK Patient Home Medication List Home Medication List Reviewed: Yes Amiodarone HCl (Amiodarone HCl) 200 Mg Tablet, 200 MG PO BID Prescribed by: RICKI JOHNSON on 02/22/22 0801 Amlodipine Besylate (Amlodipine Besylate) 5 Mg Tablet, 5 MG PO DAILY Prescribed by: MC SPARKS on 02/24/22 1023 Apixaban (Eliquis) 5 Mg Tablet, 5 MG PO BID, (Reported) Entered as Reported by: QUETA INTERIANO on 09/24/21 0836 Aspirin (Aspirin EC) 81 Mg Tablet.dr, 81 MG PO DAILY, (Reported) Entered as Reported by: QUETA INTERIANO on 09/24/21 0836 Atorvastatin Calcium (Atorvastatin Calcium) 40 Mg Tablet, 40 MG PO HS, (Reported) Entered as Reported by: STANLEY TRIMBLE on 11/19/20 1312 Cefdinir (Cefdinir) 300 Mg Capsule, 300 MG PO BID Prescribed by: DEMETRIO MELCHOR on 02/20/22 1613 Clopidogrel Bisulfate (Plavix) 75 Mg Tablet, 75 MG PO DAILY Prescribed by: MC SPARKS on 02/24/22 1021 Diltiazem HCl (Diltiazem 24Hr ER) 180 Mg Cap.er.24h, 180 MG PO DAILY, (Reported) Entered as Reported by: EDITH VASQUEZ on 08/13/21 0749 Finasteride (Finasteride) 5 Mg Tablet, 5 MG PO DAILY Prescribed by: MC SPARKS on 02/24/22 1023 Furosemide (Furosemide) 40 Mg Tablet, 40 MG PO DAILY PRN for swelling Prescribed by: MC SPARKS on 02/24/22 1023 Insulin Aspart (Novolog Flexpen) 300 Units/3 Ml Solution, 10 UNITS SQ BID Prescribed by: MC SPARKS on 02/24/22 1023 Insulin Glargine,Hum.rec.anlog (Basaglar Kwikpen U-100) 100 Unit/1 Ml Insuln.pen, 24 UNIT SQ DAILY Prescribed by: MC SPARKS on 02/24/22 1023 Liraglutide (Victoza 3-Leonardo) 0.6 Mg/0.1 Ml Pen.injctr, 1.8 MG SQ 1800 W/DINNER, (Reported) Entered as Reported by: STANLEY TRIMBLE on 11/19/20 1312 Metformin HCl (Metformin HCl ER) 500 Mg Tab.er.24, 1,000 MG PO BID Prescribed by: RICKI JOHNSON on 02/22/22 0826 Metoprolol Succinate (Toprol Xl) 25 Mg Tab.er.24h, 25 MG PO DAILY, (Reported) Entered as Reported by: EDITH VASQUEZ on 08/13/21 0749 Moxifloxacin HCl (Moxifloxacin) 0.5 % Drops, 3 ML OP DAILY, (Reported) Entered as Reported by: CARMEN BARRON on 02/22/22 1300 Ondansetron (Ondansetron Odt) 4 Mg Tab.rapdis, 4 MG PO Q6H PRN for NAUSEA/VOMITING-1ST LINE Prescribed by: DEMETRIO MELCHOR on 02/20/22 1613 Pantoprazole Sodium (Pantoprazole Sodium) 40 Mg Tablet.dr, 40 MG PO DAILY, (Reported) Entered as Reported by: QUETA INTERIANO on 09/24/21 0836 Prednisolone Acetate/Pf (Prednisolone Acet 1% Eye Drop) 1 % Drops.susp, 5 ML OP DAILY, (Reported) Entered as Reported by: CARMEN BARRON on 02/22/22 1300 Tamsulosin HCl (Flomax) 0.4 Mg Cap, 0.4 MG PO DAILY@1800 Prescribed by: MC SPARKS on 02/24/22 1023 Review of Systems Review of Systems Constitutional: see HPI Past Nrqzpty-[id number]-Oyoxdm Hx Patient Social History Tobacco Use?: No Substance use?: No Alcohol Use?: No Immunizations Up To Date Tetanus Booster (TDap): Unknown First/Initial COVID19 Vaccinat: 09/18/20 Second COVID19 Vaccination Blake: 10/09/20 Third COVID19 Vaccination Date: 09/18/20 Seasonal Allergies Seasonal Allergies: No Past Medical History Surgery/Hospitalization HX: eye bi lat, mrsa surgery on lt arm I&D, HEART ABLATION Surgeries: Yes (BLOOD CLOT RT EYE/BACK CYST/KNEE SCOPE/LT ARM R/T STAPH INFECT.) Coronary Stent, Orthopedic Respiratory: No Currently Using CPAP: No Currently Using BIPAP: No Cardiac: No Atrial Fibrillation, High Cholesterol, Hypertension Neurological: No Genitourinary: No Gastrointestinal: No Musculoskeletal: No Endocrine: Yes Diabetes, Insulin dep HEENT: Yes (DIABETIC RETINOPATHY) Macular Degeneration Loss of Vision: Denies Hearing Impairment: Denies Cancer: No Psychosocial: No Integumentary: No Blood Disorders: No Adverse Reaction/Blood Tranf: No Family Medical History No Pertinent Family Hx Physical Exam Vital Signs Vital Signs - First Documented 04/13/23 13:13 Temp 35.7 Pulse 75 Resp 18 B/P (MAP) 147/90 (109) Pulse Ox 99 O2 Delivery Room Air Capillary Refill : Less Than 3 Seconds Height, Weight, BMI Height: '" Weight: lbs. oz. kg; 32.00 BMI Method: General Appearance: No Apparent Distress, WD/WN HEENT: Normal ENT Inspection, Pharynx Normal Neck: Full Range of Motion, Normal Inspection, Non Tender, Supple Respiratory: Chest Non Tender, Lungs Clear, Normal Breath Sounds, No Accessory Muscle Use, No Respiratory Distress Cardiovascular: Regular Rate, Rhythm, No Murmur, Normal Peripheral Pulses Gastrointestinal: Normal Bowel Sounds, No Organomegaly, Non Tender, Soft Neurologic/Psychiatric: Alert, Oriented x3, No Motor/Sensory Deficits Skin: Normal Color, Warm/Dry Progress/Results/Core Measures Suspected Sepsis SIRS Temperature: Pulse: 75 Respiratory Rate: 18 Laboratory Tests 04/13/23 13:20: White Blood Count 10.8 Blood Pressure 147 /90 Mean: 109 Laboratory Tests 04/13/23 13:20: Creatinine 2.74H, INR Comment 1.1, Platelet Count 479H, Total Bilirubin 0.5 Results/Orders Lab Results Laboratory Tests Test 04/13/23 13:20 Range/Units White Blood Count 10.8 4.3-11.0 10^3/uL Red Blood Count 4.69 4.30-5.52 10^6/uL Hemoglobin 14.2 13.3-17.7 g/dL Hematocrit 42 40-54 % Mean Corpuscular Volume 89 80-99 fL Mean Corpuscular Hemoglobin 30 25-34 pg Mean Corpuscular Hemoglobin Concent 34 32-36 g/dL Red Cell Distribution Width 12.8 10.0-14.5 % Platelet Count 479 H 130-400 10^3/uL Mean Platelet Volume 10.2 9.0-12.2 fL Immature Granulocyte % (Auto) 0 % Neutrophils (%) (Auto) 72 42-75 % Lymphocytes (%) (Auto) 19 12-44 % Monocytes (%) (Auto) 7 0-12 % Eosinophils (%) (Auto) 0 0-10 % Basophils (%) (Auto) 1 0-10 % Neutrophils # (Auto) 7.8 1.8-7.8 10^3/uL Lymphocytes # (Auto) 2.1 1.0-4.0 10^3/uL Monocytes # (Auto) 0.8 0.0-1.0 10^3/uL Eosinophils # (Auto) 0.0 0.0-0.3 10^3/uL Basophils # (Auto) 0.1 0.0-0.1 10^3/uL Immature Granulocyte # (Auto) 0.0 0.0-0.1 10^3/uL Prothrombin Time 14.8 H 12.2-14.7 SEC INR Comment 1.1 0.8-1.4 Activated Partial Thromboplast Time 28 24-35 SEC Sodium Level 137 135-145 MMOL/L Potassium Level 3.6 3.6-5.0 MMOL/L Chloride Level 98 98-107 MMOL/L Carbon Dioxide Level 23 21-32 MMOL/L Anion Gap 16 H 5-14 MMOL/L Blood Urea Nitrogen 52 H 7-18 MG/DL Creatinine 2.74 H 0.60-1.30 MG/DL Estimat Glomerular Filtration Rate 25 BUN/Creatinine Ratio 19 Glucose Level 145 H 70-105 MG/DL Calcium Level 10.0 8.5-10.1 MG/DL Corrected Calcium 9.8 8.5-10.1 MG/DL Total Bilirubin 0.5 0.1-1.0 MG/DL Aspartate Amino Transf (AST/SGOT) 16 5-34 U/L Alanine Aminotransferase (ALT/SGPT) 20 0-55 U/L Alkaline Phosphatase 77 40-136 U/L Troponin I 0.050 H <0.028 NG/ML Total Protein 7.5 6.4-8.2 GM/DL Albumin 4.3 3.2-4.5 GM/DL My Orders Orders - GABRIELKATARINA OWUSU DO Ekg Tracing (04/13/23 13:15) Cbc With Automated Diff (04/13/23 13:24) Chest 1 View, Ap/Pa Only (04/13/23 13:24) Ekg Tracing (04/13/23 13:24) Comprehensive Metabolic Panel (04/13/23 13:24) Protime With Inr (04/13/23 13:24) Partial Thromboplastin Time (04/13/23 13:24) Monitor-Rhythm Ecg Trace Only (04/13/23 13:24) Ed Iv/Invasive Line Start (04/13/23 13:24) Troponin I Real (04/13/23 13:24) Orthostatic Vital Signs (Adult (04/13/23 13:26) Ns Iv 500 Ml (Sodium Chloride 0.9%) (04/13/23 13:42) Ed Admission (Communication) (04/13/23 14:08) Vital Signs/I&O 04/13/23 04/13/23 13:13 13:41 Temp 35.7 Pulse 75 73 77 89 Resp 18 B/P (MAP) 147/90 (109) 134/84 (101) 104/66 (79) 88/56 (67) Pulse Ox 99 O2 Delivery Room Air Capillary Refill : Less Than 3 Seconds Blood Pressure Mean: 109 Diagnostic Imaging Comments Limited bedside ultrasound performed by myself shows only trace pericardial effusion with normal cardiac motion, no evidence of heart strain. Departure Communication (Admissions) Patient is hemodynamically stable. He has significant orthostatic hypotension with a blood pressure initially 147 systolic. It drops to 88 systolic when he stands up. Heart rate also goes from 71-89 with standing. He does have sig nificant FEDERICA as well. This is likely multifactorial with dehydration, multiple new medications including chlorthalidone, spironolactone, colchicine and ibuprofen. I am pending a call back from Dr. Busby for further medication recommendations and consultation. I spoke with Dr. Sparks who accepts the patient in admission. I have given him 500 cc of IV fluids. Limited bedside ultrasound performed by myself shows no evidence for significant pericardial effusion, only trace. Good cardiac function. He is having no chest pain or shortness of breath. I independently reviewed chest x-ray images and it is negative for any acute findings. Labs are significant for FEDERICA but chemistries otherwise unremarkable. CBC is unremarkable with normal white count normal pl atelets normal hemoglobin. Troponin is slightly elevated, this may be related to his recent cardiac procedure. We will need to trend this to ensure its not rapidly elevating but he is having no chest pain or shortness of breath, anginal equivalents at this time. He is admitted nonetheless stable condition. Impression Primary Impression: Orthostatic hypotension Additional Impressions: Syncope Qualified Codes: R55 - Syncope and collapse FEDERICA (acute kidney injury) Disposition: ADMITTED INPATIENT Condition: Stable Departure-Patient Inst. Referrals: MC SPARKS DO (PCP/Family) Primary Care Physician KATARINA RIOS DO Apr 13, 2023 13:26
[2023-04-13 13:32] LABS: BASOPHILS # (AUTO) 0.1 10^3/uL (0.0-0.1); BASOPHILS % (AUTO) 1 % (0-10); EOSINOPHILS % (AUTO) 0 % (0-10); HEMATOCRIT 42 % (40-54); HEMOGLOBIN 14.2 g/dL (13.3-17.7); LYMPHOCYTES # (AUTO) 2.1 10^3/uL (1.0-4.0); LYMPHOCYTES % (AUTO) 19 % (12-44); MEAN CORPUSCULAR HEMOGLOBIN 30 pg (25-34); MEAN CORPUSCULAR HGB CONC 34 g/dL (32-36); MEAN CORPUSCULAR VOLUME 89 fL (80-99); MEAN PLATELET VOLUME 10.2 fL (9.0-12.2); MONOCYTES # (AUTO) 0.8 10^3/uL (0.0-1.0); MONOCYTES % (AUTO) 7 % (0-12); NEUTROPHILS # (AUTO) 7.8 10^3/uL (1.8-7.8); NEUTROPHILS % (AUTO) 72 % (42-75); PLATELET COUNT 479 10^3/uL (130-400); WHITE BLOOD COUNT 10.8 10^3/uL (4.3-11.0)
[2023-04-13 13:38] LABS: ALBUMIN 4.3 GM/DL (3.2-4.5); POTASSIUM 3.6 MMOL/L (3.6-5.0)
[2023-04-13 13:39] LABS: INR 1.1 (0.8-1.4); PROTHROMBIN TIME PATIENT 14.8 SEC (12.2-14.7)
[2023-04-13 13:40] LABS: TOTAL PROTEIN 7.5 GM/DL (6.4-8.2)
[2023-04-13 13:42] LABS: BILIRUBIN,TOTAL 0.5 MG/DL (0.1-1.0)
[2023-04-13] MEDS ORDERED: NS IV 500 ML 500 ML IV STA (13:42)
[2023-04-13 13:44] LABS: CREATININE SERUM 2.74 MG/DL (0.60-1.30)
--- NOTE | 2023-04-13 13:51 | Diagnostic Imaging Report ---
INDICATION: Arrhythmia. EXAMINATION: Portable chest, 1:48 p.m. FINDINGS: There is a loop recorder projecting over the left-sided chest. Heart size and pulmonary vascularity are normal. Lungs are clear. There are no effusions or pneumothoraces. IMPRESSION: No acute abnormalities in the chest. Dictated by: Dictated on workstation # [id number]
[2023-04-13] MEDS ORDERED: ANTACID SUSP 30 ML UDC (MYLANTA) PO PRN (16:00)
[2023-04-13] MEDS ORDERED: CALCIUM CARBONATE 500 MG CHEW TABLET PO PRN (16:00)
[2023-04-13] MEDS ORDERED: diphenhydrAMINE 25 MG TAB (BENADRYL) PO PRN (16:00)
[2023-04-13] MEDS ORDERED: ACETAMINOPHEN 325 MG TABLET PO PRN (16:00)
[2023-04-13] MEDS ORDERED: LACTULOSE SYRUP 10GM/15ML (ENULOSE) 30ML UDC PO PRN (16:00)
[2023-04-13] MEDS ORDERED: MILK OF MAGNESIA 400 MG/5 ML 30 ML UDC PO PRN (16:00)
[2023-04-13] MEDS ORDERED: polyethylene glycoL POWDER 17 GM (MIRALAX) PACK PO PRN (16:00)
[2023-04-13] MEDS ORDERED: MELATONIN 3 MG TABLET PO PRN (16:00)
[2023-04-13] MEDS ORDERED: BISACODYL 10 MG SUPPOSITORY PR PRN (16:00)
[2023-04-13] MEDS ORDERED: diphenhydrAMINE 50 MG/ML INJ (BENADRYL) IVP PRN (16:00)
[2023-04-13] MEDS ORDERED: ONDANSETRON 4 MG (ZOFRAN) ORAL DISSOLVE TAB PO PRN (16:00)
[2023-04-13] MEDS ORDERED: ONDANSETRON 4 MG/2 ML (SDV) Z0FRAN IV PRN (16:00)
[2023-04-13] MEDS ORDERED: RT-ALBUTEROL SULF 2.5 MG/3 ML PRE-MIX VIAL INH PRN (16:15)
[2023-04-13] MEDS: NS IV 1000 ML 1,000 ML IV SCH (16:18)
[2023-04-13] MEDS: inSUlin ASPART (NovoLOG) 1 UNIT/0.01 ML (CHARGE PER UNIT) SC SCH ×2 (16:22→20:57)
[2023-04-13] MEDS ORDERED: SPIR25TA5 PO (17:04)
[2023-04-13] MEDS ORDERED: METO50TA7 PO (17:04)
[2023-04-13] MEDS ORDERED: IBUP-1779 PO (17:04)
[2023-04-13] MEDS ORDERED: COLC0.6T59 PO (17:04)
[2023-04-13] MEDS ORDERED: CHLO50TA2 PO (17:04)
[2023-04-13] MEDS ORDERED: FURO80TA3 PO (17:04)
[2023-04-13] MEDS: DOCUSATE SODIUM 100 MG CAPSULE PO SCH (20:06)
[2023-04-13] MEDS: SENNOSIDES 8.6 MG (SENOKOT) TAB PO SCH (20:06)
[2023-04-13] MEDS: APIXABAN 2.5 MG TABLET PO SCH (20:57)
[2023-04-14] VITALS (7 sets, daily range): BP systolic 138–171; BP diastolic 75–100
[2023-04-14 05:05] LABS: BASOPHILS # (AUTO) 0.1 10^3/uL (0.0-0.1); BASOPHILS % (AUTO) 1 % (0-10); EOSINOPHILS # (AUTO) 0.1 10^3/uL (0.0-0.3); EOSINOPHILS % (AUTO) 1 % (0-10); HEMATOCRIT 38 % (40-54); HEMOGLOBIN 12.7 g/dL (13.3-17.7); LYMPHOCYTES % (AUTO) 25 % (12-44); MEAN CORPUSCULAR HEMOGLOBIN 30 pg (25-34); MEAN CORPUSCULAR HGB CONC 34 g/dL (32-36); MEAN CORPUSCULAR VOLUME 90 fL (80-99); MEAN PLATELET VOLUME 10.2 fL (9.0-12.2); MONOCYTES # (AUTO) 0.8 10^3/uL (0.0-1.0); MONOCYTES % (AUTO) 10 % (0-12); NEUTROPHILS % (AUTO) 63 % (42-75); PLATELET COUNT 421 10^3/uL (130-400); WHITE BLOOD COUNT 7.9 10^3/uL (4.3-11.0)
[2023-04-14 05:14] LABS: ALBUMIN 3.8 GM/DL (3.2-4.5)
[2023-04-14 05:15] LABS: POTASSIUM 3.3 MMOL/L (3.6-5.0)
[2023-04-14 05:16] LABS: CALCIUM 9.1 MG/DL (8.5-10.1)
[2023-04-14 05:17] LABS: TOTAL PROTEIN 6.5 GM/DL (6.4-8.2)
[2023-04-14 05:19] LABS: BILIRUBIN,TOTAL 0.3 MG/DL (0.1-1.0)
[2023-04-14 05:21] LABS: CREATININE SERUM 2.13 MG/DL (0.60-1.30)
[2023-04-14] MEDS: KCL 20 MEQ TAB (K-DUR) PO SCH (06:11)
[2023-04-14] MEDS: NS IV 1000 ML 1,000 ML IV SCH ×2 (06:11→20:13)
[2023-04-14] MEDS: inSUlin ASPART (NovoLOG) 1 UNIT/0.01 ML (CHARGE PER UNIT) SC SCH ×5 (06:12→21:05)
[2023-04-14] MEDS: SENNOSIDES 8.6 MG (SENOKOT) TAB PO SCH ×2 (08:05→19:48)
[2023-04-14] MEDS: APIXABAN 2.5 MG TABLET PO SCH (08:05)
[2023-04-14] MEDS: CLOPIDOGREL 75 MG TABLET PO SCH (08:05)
[2023-04-14] MEDS: DOCUSATE SODIUM 100 MG CAPSULE PO SCH ×2 (08:05→19:48)
--- NOTE | 2023-04-14 10:09 | History & Physical ---
THIAGO CRESPO 04/14/23 1009: History of Present Illness History of Present Illness Reason for visit/HPI Our patient is a 67 yo M with a past medical history of a-fib, cardiac stenting, and type II diabetes that was admitted to the hospital for severe orthostatic hypotension as well as an acute kidney injury. On 03/30 he underwent a cardiac ablation in [employer] that resulted in the development of a pericardial effusion 2 hours later. He underwent emergency pericardiocentesis and was discharged from the hospital a week ago. He had a pericardial catheter removed a couple days ago and believes that he has decompensated since being discharged. He notes extreme fatigue whenever he gets up to walk and feels like he might pass out. He is unsure if he has lost consciousness during any of these episodes. Yesterday morning, he arose from a sitting position and soon after fell on his left side. He denies hitting his head. He describes these episodes as periods of extreme lightheadedness accompanied by tunneling of vision. When discharged from the hospital he was placed on multiple new medications including chlorthalidone, spironolactone, colchicine, and ibuprofen. He spoke with the doctor that performed the procedure this last Wednesday about his current symptoms and was advised to stop the two new blood pressure medications. He hasn't taken either since last Wednesday. During today's interview he denies chest pain at any point, fever, chills, SOB, recent illnesses, or acute vision changes. He notes some mild nausea related to sinus congestion as well as loose stools. In the ER, labwork was conducted that was significant for an acute kidney injury, elevated troponin, and high glucose. Initial chest x-ray was unremarka ble. Due to his recent pericardial effusion, a bedside ultrasound examination was performed that showed no significant pericardial effusion. He was also found to have prominent othostatic hypotension on testing. He was started on fluids and was admitted for further evaluation and treatment. Date of Admission Apr 13, 2023 at 15:12 Date Seen by a Provider: Apr 14, 2023 Time Seen by a Provider: 08:30 I consulted on this patient on 04/14/23 09:53 Attending Physician Gretel Sparks DO Admitting Physician Admitting Physician: Gretel Sparks DO Attending Physician: Gretel Sparks DO Consult Allergies and Home Medications Allergies Coded Allergies: hydromorphone (Verified Allergy, Unknown, 04/13/23) MAKES HIM SICK Patient Home Medication List Amiodarone HCl (Amiodarone HCl) 200 Mg Tablet, 200 MG PO DAILY, (Reported) Entered as Reported by: JOVANNA BRADY on 04/14/231136 Last Action: Continued Apixaban (Eliquis) 5 Mg Tablet, 5 MG PO BID, (Reported) Entered as Reported by: QUETA INTERIANO on 09/24/21835 Last Action: Continued Aspirin (Aspirin EC) 81 Mg Tablet.dr, 81 MG PO DAILY, (Reported) Entered as Reported by: QUETA INTERIANO on 09/24/21835 Last Action: Continued Atorvastatin Calcium (Atorvastatin Calcium) 40 Mg Tablet, 40 MG PO DAILY, (Reported) Entered as Reported by: STANLEY TRIMBLE on 11/19/20 1312 Last Action: Continued Chlorthalidone (Chlorthalidone) 50 Mg Tablet, 50 MG PO DAILY, (Reported) Entered as Reported by: GINA FENTON on 04/13/231703 Last Action: Held Clopidogrel Bisulfate (Clopidogrel) 75 Mg Tablet, 75 MG PO DAILY, (Reported) Entered as Reported by: JOVANNA BRADY on 04/14/231136 Last Action: Continued Colchicine (Colchicine) 0.6 Mg Tablet, 0.6 MG PO DAILY, (Reported) Entered as Reported by: GINA FENTON on 04/13/231703 Last Action: Continued Furosemide (Furosemide) 80 Mg Tablet, 80 MG PO DAILY, (Reported) Entered as Reported by: GINA FENTON on 04/13/231703 Last Action: Held Insulin Aspart (Novolog Flexpen) 100 Unit/Ml (3 Ml) Solution, 10 UNITS SQ BID WITH MEALS, (Reported) Entered as Reported by: JOVANNA BRADY on 04/14/231136 Last Action: Converted Insulin Glargine,Hum.rec.anlog (Basaglar Kwikpen U-100) 100 Unit/Ml (3 Ml) Insuln.pen, 24 UNIT SQ DAILY, (Reported) Entered as Reported by: JOVANNA BRADY on 04/14/231136 Last Action: Converted Liraglutide (Victoza 3-Leonardo) 0.6 Mg/0.1 Ml Pen.injctr, 1.8 MG SQ 1800 W/DINNER, (Reported) Entered as Reported by: STANLEY TRIMBLE on 11/19/20 1312 Last Action: Reviewed Metformin HCl (Metformin HCl ER) 500 Mg Tab.er.24h, 1,000 MG PO BID, (Reported) Entered as Reported by: JOVANNA BRADY on 04/14/231136 Last Action: Held Metoprolol Succinate (Metoprolol Succinate) 50 Mg Tab.er.24h, 50 MG PO DAILY, (Reported) Entered as Reported by: GINA FENTON on 04/13/23 1704 Last Action: Continued Pantoprazole Sodium (Pantoprazole Sodium) 40 Mg Tablet.dr, 40 MG PO BID, (Reported) Entered as Reported by: QUETA INTERIANO on 09/24/21 0836 Last Action: Continued Potassium Chloride (Potassium Chloride) 20 Meq Tab.er.prt, 40 MEQ PO DAILY, (Reported) Entered as Reported by: JOVANNA BRADY on 04/14/231136 Last Action: Held Tamsulosin HCl (Flomax) 0.4 Mg Cap, 0.4 MG PO DAILY, (Reported) Entered as Reported by: JOVANNA BRADY on 04/14/231136 Last Action: Continued Discontinued Medications Amiodarone HCl (Amiodarone HCl) 200 Mg Tablet, 200 MG PO BID Discontinued Reason: Duplicate Order Prescribed by: RICKI JOHNSON on 02/22/22 0826 Last Action: Discontinued Amlodipine Besylate (Amlodipine Besylate) 5 Mg Tablet, 5 MG PO DAILY Discontinued Reason: No Longer Taking Prescribed by: GRETEL SPARKS on 02/24/22 1023 Last Action: Discontinued Cefdinir (Cefdinir) 300 Mg Capsule, 300 MG PO BID Discontinued Reason: No Longer Taking Prescribed by: DEMETRIO MELCHOR on 02/20/22 1613 Last Action: Discontinued Clopidogrel Bisulfate (Plavix) 75 Mg Tablet, 75 MG PO DAILY Discontinued Reason: Duplicate Order Prescribed by: GRETEL SPARKS on 02/24/22 1021 Last Action: Discontinued Diltiazem HCl (Diltiazem 24Hr ER) 180 Mg Cap.er.24h, 180 MG PO DAILY, (Reported) Entered as Reported by: EDITH VASQUEZ on 08/13/21 0784 Last Action: Discontinued Finasteride (Finasteride) 5 Mg Tablet, 5 MG PO DAILY Discontinued Reason: No Longer Taking Prescribed by: GRETEL SPARKS on 02/24/22 1023 Last Action: Discontinued Furosemide (Furosemide) 40 Mg Tablet, 40 MG PO DAILY PRN for swelling Discontinued Reason: No Longer Taking Prescribed by: GRETEL SPARKS on 02/24/22 1023 Last Action: Discontinued Ibuprofen (Ibuprofen) 400 Mg Tablet, 400 MG PO TID, (Reported) Discontinued Reason: No Longer Taking Entered as Reported by: GINA FENTON on 04/13/23 1704 Last Action: Discontinued Insulin Aspart (Novolog Flexpen) 300 Units/3 Ml Solution, 10 UNITS SQ BID Discontinued Reason: Duplicate Order Prescribed by: GRETEL SPARKS on 02/24/22 1023 Last Action: Discontinued Insulin Glargine,Hum.rec.anlog (Basaglar Kwikpen U-100) 100 Unit/1 Ml Insuln.pen, 24 UNIT SQ DAILY Discontinued Reason: Duplicate Order Prescribed by: GRETEL SPARKS on 02/24/22 1023 Last Action: Discontinued Metformin HCl (Metformin HCl ER) 500 Mg Tab.er.24, 1,000 MG PO BID Discontinued Reason: Duplicate Order Prescribed by: RICKI JOHNSON on 02/22/22 0826 Last Action: Discontinued Metoprolol Succinate (Toprol Xl) 25 Mg Tab.er.24h, 25 MG PO DAILY, (Reported) Discontinued Reason: No Longer Taking Entered as Reported by: EDITH VASQUEZ on 08/13/21 0749 Last Action: Discontinued Moxifloxacin HCl (Moxifloxacin) 0.5 % Drops, 3 ML OP DAILY, (Reported) Discontinued Reason: No Longer Taking Entered as Reported by: CARMEN BARRON on 02/22/22 1300 Last Action: Discontinued Ondansetron (Ondansetron Odt) 4 Mg Tab.rapdis, 4 MG PO Q6H PRN for NAUSEA/VOMITING-1ST LINE Discontinued Reason: No Longer Taking Prescribed by: DEMETRIO MELCHOR on 02/20/22 1613 Last Action: Discontinued Prednisolone Acetate/Pf (Prednisolone Acet 1% Eye Drop) 1 % Drops.susp, 5 ML OP DAILY, (Reported) Discontinued Reason: No Longer Taking Entered as Reported by: CARMEN BARRON on 02/22/22 1300 Last Action: Discontinued Spironolactone (Spironolactone) 25 Mg Tablet, 25 MG PO DAILY, (Reported) Discontinued Reason: No Longer Taking Entered as Reported by: GINA FENTON on 04/13/23 1704 Last Action: Discontinued Tamsulosin HCl (Flomax) 0.4 Mg Cap, 0.4 MG PO DAILY@1800 Discontinued Reason: No Longer Taking Prescribed by: GRETEL SPARKS on 02/24/22 1023 Last Action: Discontinued Past Efabnvc-Onysye-Xfnijg Hx Patient Social History Tobacco Use?: No Use of E-Cig and/or Vaping dev: No Substance use?: No Alcohol Use?: No Pt feels they are or have been: No Immunizations Up To Date Date of Influenza Vaccine: Jun 21, 2020 First/Initial COVID19 Vaccinat: 09/18/20 Second COVID19 Vaccination Blake: 10/09/20 Tetanus Booster (TDap): Unknown Seasonal Allergies Seasonal Allergies: No Current Status Advance Directives: No Primary Language: Latvian Preferred Spoken Language: Latvian Sensory deficits: Vision impairment Implanted or Applied Medical D: Stents Past Medical History Surgeries: Coronary Stent, Eye Surgery (Bilateral lens replacement, repair of detached retina, 3x vitrectomies), Orthopedic Currently Using CPAP: No Currently Using BIPAP: No Atrial Fibrillation, High Cholesterol, Hypertension Diabetes, Insulin dep Macular Degeneration Loss of Vision: Denies Hearing Impairment: Denies Blood Disorders: No Adverse Reaction/Blood Tranf: No Family Medical History No Pertinent Family Hx Review of Systems Constitutional: No chills, No fever; weakness (On standing), other (Extreme fatigue on standing) EENTM: nose congestion; No hearing loss, No blurred vision, No vision loss Respiratory: No cough, No short of breath Cardiovascular: No chest pain; edema, Hx of Intervention; No palpitations Gastrointestinal: No abdominal pain, No constipation, No diarrhea, No nausea, No vomiting Genitourinary: No dysuria, No frequency Musculoskeletal: no symptoms reported Skin: no symptoms reported Psychiatric/Neurological: Denies Headache Physical Exam Vital Signs Vital Signs - First Documented 04/13/23 13:13 Temp 35.7 Pulse 75 Resp 18 B/P (MAP) 147/90 (109) Pulse Ox 99 O2 Delivery Room Air Capillary Refill : Less Than 3 Seconds Height, Weight, BMI Height: '" Weight: lbs. oz. kg; 32.32 BMI Method: General Appearance: No Apparent Distress, WD/WN, Obese HEENT: PERRL/EOMI, Normal ENT Inspection; No Scleral Icterus (L), No Scleral Icterus (R) Neck: Normal Inspection, Non Tender, Supple; No Carotid Bruit, No Lymphadenopathy (L), No Lymphadenopathy (R) Respiratory: Chest Non Tender, Lungs Clear, Normal Breath Sounds, No Accessory Muscle Use, No Respiratory Distress Cardiovascular: Regular Rate, Rhythm, No Edema, No Gallop, No JVD, No Murmur, Normal Peripheral Pulses Gastrointestinal: Normal Bowel Sounds, No Organomegaly, Non Tender, Soft, Distended (Mildly) Rectal: Deferred Back: Normal Inspection Extremity: Normal Capillary Refill, Non Tender, No Calf Tenderness, Pedal Edema (trace) Neurologic/Psychiatric: Alert, Oriented x3, No Motor/Sensory Deficits, Normal Mood/Affect Skin: Normal Color, Warm/Dry Assessment/Plan Assessment and Plan Acute Kidney Injury -On admission, BUN was elevated at 52, creatinine at 2.74, eGFR of 25 -Kidney function has improved with IV fluid supplementation -Continue NaCl at 70 mls/hr -Continue to monitor with serial chemistry labs Orthostatic Hypotension -Vitals showed severe orthostatic changes on arrival to the ER -IV fluid supplementation as concomitant FEDERICA suggests dehydration prior to arrival -Physical therapy consult ordered to evaluate for improvement in orthostatic vital signs -Possibly due to recent prescription of chlorthalidone and spironolactone s/p pericardiocentesis as symptom onset began shortly after beginning them. Elevated Troponin -Previous history of cardiac stent placement -Troponin is trending downward -Likely left over from recent cardiac intervention -Echocardiogram showed moderate concentric hypertrophy of the left ventricle, but ejection fraction of 55-60% -Continue to monitor for symptoms suggestive of DC Type II Diabetes -Continue sliding scale insulin, Novolog -Continue Levemir per home dosing -Monitor with serial glucometer readings Bowel regimen available as needed for constipation DVT Prophylaxis: eliquis 2.5 Diet: Regular Disposition: observation Admission Diagnosis Acute kidney injury Admission Status: Observation GRETEL SPARKS DO 04/15/23 4272: Allergies and Home Medications Allergies Coded Allergies: hydromorphone (Verified Allergy, Unknown, 04/13/23) MAKES HIM SICK Patient Home Medication List Home Medication List Reviewed: Yes Amiodarone HCl (Amiodarone HCl) 200 Mg Tablet, 200 MG PO DAILY, (Reported) Entered as Reported by: JOVANNA BRADY on 04/14/23 1136 Last Action: Continued Apixaban (Eliquis) 5 Mg Tablet, 5 MG PO BID, (Reported) Entered as Reported by: QUETA INTERIANO on 09/24/21835 Last Action: Continued Aspirin (Aspirin EC) 81 Mg Tablet.dr, 81 MG PO DAILY, (Reported) Entered as Reported by: QUETA INTERIANO on 09/24/21835 Last Action: Continued Atorvastatin Calcium (Atorvastatin Calcium) 40 Mg Tablet, 40 MG PO DAILY, (Reported) Entered as Reported by: STANLEY TRIMBLE on 11/19/201311 Last Action: Continued Chlorthalidone (Chlorthalidone) 50 Mg Tablet, 50 MG PO DAILY, (Reported) Entered as Reported by: GINA FENTON on 04/13/231703 Last Action: Held Clopidogrel Bisulfate (Clopidogrel) 75 Mg Tablet, 75 MG PO DAILY, (Reported) Entered as Reported by: JOVANNA BRADY on 04/14/231136 Last Action: Continued Colchicine (Colchicine) 0.6 Mg Tablet, 0.6 MG PO DAILY, (Reported) Entered as Reported by: GINA FENTON on 04/13/231703 Last Action: Continued Furosemide (Furosemide) 80 Mg Tablet, 80 MG PO DAILY, (Reported) Entered as Reported by: GINA FENTON on 04/13/231703 Last Action: Held Insulin Aspart (Novolog Flexpen) 100 Unit/Ml (3 Ml) Solution, 10 UNITS SQ BID WITH MEALS, (Reported) Entered as Reported by: JOVANNA BRADY on 04/14/231136 Last Action: Converted Insulin Glargine,Hum.rec.anlog (Basaglar Kwikpen U-100) 100 Unit/Ml (3 Ml) Insuln.pen, 24 UNIT SQ DAILY, (Reported) Entered as Reported by: JOVANNA BRADY on 04/14/231136 Last Action: Converted Liraglutide (Victoza 3-Leonardo) 0.6 Mg/0.1 Ml Pen.injctr, 1.8 MG SQ 1800 W/DINNER, (Reported) Entered as Reported by: STANLEY TRIMBLE on 11/19/201311 Last Action: Reviewed Metformin HCl (Metformin HCl ER) 500 Mg Tab.er.24h, 1,000 MG PO BID, (Reported) Entered as Reported by: JOVANNA BRADY on 04/14/231136 Last Action: Held Metoprolol Succinate (Metoprolol Succinate) 50 Mg Tab.er.24h, 50 MG PO DAILY, (Reported) Entered as Reported by: GINA FENTON on 04/13/23 1704 Last Action: Continued Pantoprazole Sodium (Pantoprazole Sodium) 40 Mg Tablet.dr, 40 MG PO BID, (Reported) Entered as Reported by: QUETA INTERIANO on 09/24/21 0836 Last Action: Continued Potassium Chloride (Potassium Chloride) 20 Meq Tab.er.prt, 40 MEQ PO DAILY, (Reported) Entered as Reported by: JOVANNA BRADY on 04/14/231136 Last Action: Held Tamsulosin HCl (Flomax) 0.4 Mg Cap, 0.4 MG PO DAILY, (Reported) Entered as Reported by: JOVANNA BRADY on 04/14/231136 Last Action: Continued Discontinued Medications Amiodarone HCl (Amiodarone HCl) 200 Mg Tablet, 200 MG PO BID Discontinued Reason: Duplicate Order Prescribed by: RICKI JOHNSON on 02/22/22 0826 Last Action: Discontinued Amlodipine Besylate (Amlodipine Besylate) 5 Mg Tablet, 5 MG PO DAILY Discontinued Reason: No Longer Taking Prescribed by: GRETEL SPARKS on 02/24/22 1023 Last Action: Discontinued Cefdinir (Cefdinir) 300 Mg Capsule, 300 MG PO BID Discontinued Reason: No Longer Taking Prescribed by: DEMETRIO MELCHOR on 02/20/22 1613 Last Action: Discontinued Clopidogrel Bisulfate (Plavix) 75 Mg Tablet, 75 MG PO DAILY Discontinued Reason: Duplicate Order Prescribed by: GRETEL SPARKS on 02/24/22 1021 Last Action: Discontinued Diltiazem HCl (Diltiazem 24Hr ER) 180 Mg Cap.er.24h, 180 MG PO DAILY, (Reported) Entered as Reported by: EDITH VASQUEZ on 08/13/21 0749 Last Action: Discontinued Finasteride (Finasteride) 5 Mg Tablet, 5 MG PO DAILY Discontinued Reason: No Longer Taking Prescribed by: GRETEL SPARKS on 02/24/22 1023 Last Action: Discontinued Furosemide (Furosemide) 40 Mg Tablet, 40 MG PO DAILY PRN for swelling Discontinued Reason: No Longer Taking Prescribed by: GRETEL SPARKS on 02/24/22 1023 Last Action: Discontinued Ibuprofen (Ibuprofen) 400 Mg Tablet, 400 MG PO TID, (Reported) Discontinued Reason: No Longer Taking Entered as Reported by: GINA FENTON on 04/13/23 1704 Last Action: Discontinued Insulin Aspart (Novolog Flexpen) 300 Units/3 Ml Solution, 10 UNITS SQ BID Discontinued Reason: Duplicate Order Prescribed by: GRETEL SPARKS on 02/24/22 1023 Last Action: Discontinued Insulin Glargine,Hum.rec.anlog (Basaglar Kwikpen U-100) 100 Unit/1 Ml Insuln.pen, 24 UNIT SQ DAILY Discontinued Reason: Duplicate Order Prescribed by: GRETEL SPARKS on 02/24/22 1023 Last Action: Discontinued Metformin HCl (Metformin HCl ER) 500 Mg Tab.er.24, 1,000 MG PO BID Discontinued Reason: Duplicate Order Prescribed by: RICKI JOHNSON on 02/22/22 0826 Last Action: Discontinued Metoprolol Succinate (Toprol Xl) 25 Mg Tab.er.24h, 25 MG PO DAILY, (Reported) Discontinued Reason: No Longer Taking Entered as Reported by: EDITH VASQUEZ on 08/13/21 0749 Last Action: Discontinued Moxifloxacin HCl (Moxifloxacin) 0.5 % Drops, 3 ML OP DAILY, (Reported) Discontinued Reason: No Longer Taking Entered as Reported by: CARMEN BARRON on 02/22/22 1300 Last Action: Discontinued Ondansetron (Ondansetron Odt) 4 Mg Tab.rapdis, 4 MG PO Q6H PRN for NAUSEA/VOMITI NG-1ST LINE Discontinued Reason: No Longer Taking Prescribed by: DEMETRIO MELCHOR on 02/20/22 1613 Last Action: Discontinued Prednisolone Acetate/Pf (Prednisolone Acet 1% Eye Drop) 1 % Drops.susp, 5 ML OP DAILY, (Reported) Discontinued Reason: No Longer Taking Entered as Reported by: CARMEN BARRON on 02/22/22 1300 Last Action: Discontinued Spironolactone (Spironolactone) 25 Mg Tablet, 25 MG PO DAILY, (Reported) Discontinued Reason: No Longer Taking Entered as Reported by: GINA FENTON on 04/13/23 1704 Last Action: Discontinued Tamsulosin HCl (Flomax) 0.4 Mg Cap, 0.4 MG PO DAILY@1800 Discontinued Reason: No Longer Taking Prescribed by: GRETEL SPARKS on 02/24/22 1023 Last Action: Discontinued Past Imjuowz-Ebilrw-Rlszfk Hx Patient Social History Marrital Status: single Employed/Student: retired Smoking Status: Former Smoker Past Medical History Atrial Fibrillation, High Cholesterol, Hypertension Diabetes, Insulin dep Review of Systems Constitutional: see HPI, dizziness, malaise, weakness (On standing) Physical Exam General Appearance: No Apparent Distress, WD/WN, Chronically ill Eyes: Bilateral Eye Normal Inspection, Bilateral Eye PERRL, Bilateral Eye EOMI HEENT: PERRL/EOMI, Normal ENT Inspection, Pharynx Normal Neck: Full Range of Motion, Normal Inspection, Non Tender, Supple, Carotid Bruit Respiratory: Chest Non Tender, Lungs Clear, Normal Breath Sounds, No Accessory Muscle Use, No Respiratory Distress Cardiovascular: Regular Rate, Rhythm, No Edema, No Gallop, No JVD, No Murmur, Normal Peripheral Pulses Gastrointestinal: Normal Bowel Sounds, No Organomegaly, No Pulsatile Mass, Non Tender, Soft Back: Normal Inspection, No CVA Tenderness, No Vertebral Tenderness Extremity: Normal Capillary Refill, Normal Inspection, Normal Range of Motion, Non Tender, No Calf Tenderness, No Pedal Edema Neurologic/Psychiatric: Alert, Oriented x3, No Motor/Sensory Deficits, Normal Mood/Affect Skin: Normal Color, Warm/Dry Lymphatic: No Adenopathy Assessment/Plan Assessment and Plan Problems: (1) Syncope Status: Acute Qualifiers: Qualified Codes: R55 - Syncope and collapse (2) FEDERICA (acute kidney injury) (3) Orthostatic hypotension Status: Acute Admission Diagnosis Admission Status: Observation Supervisory-Addendum Brief Verification & Attestation Participated in pt care: history, MDM, physical Personally performed: exam, history, MDM, supervision of care Care discussed with: Medical Student Procedures: n/a Results interpretation: Verified all documentation Verification and Attestation of Medical Student E/M Service A medical student performed and documented this service in my presence. I reviewed and verified all information documented by the medical student and made modifications to such information, when appropriate. I personally performed the physical exam and medical decision making. Gretel Sparks, Apr 15, 2023,05:15 THIAGO CRESPO Apr 14, 2023 10:09 GRETEL SPARKS DO Apr 15, 2023 05:15
[2023-04-14] MEDS ORDERED: METF-865 PO (11:37)
[2023-04-14] MEDS ORDERED: CLOP75TA28 PO (11:37)
[2023-04-14] MEDS ORDERED: TMSL.4C PO (11:37)
[2023-04-14] MEDS ORDERED: AMIO200T65 PO (11:37)
[2023-04-14] MEDS ORDERED: INSU100I14 SQ (11:37)
[2023-04-14] MEDS ORDERED: INSU100I34 SQ (11:37)
[2023-04-14] MEDS ORDERED: POTA-179 PO (11:37)
--- NOTE | 2023-04-14 13:32 | Consultation-Cardiology ---
HPI-Cardiology Cardiology Consultation Date of Consultation 04/14/23 Date of Admission Time Seen by Provider: 13:27 Indication: Syncope HPI 67-year-old gentleman with history of paroxysmal atrial fibrillation, coronary artery disease, diabetes mellitus Patient underwent A-fib ablation at on March 30, 2023. Post ablation patient had late pericardial effusion. Required pericardiocentesis. Stayed in the hospital for about a week then he was discharged home, continue to feel weak and tired. Had some changes in his medication. Continue to have orthostatic hypotension, he contacted Dr. Leon and amlodipine and Aldactone were dis continued. Continue on hydrochlorothiazide and amiodarone. Patient had 2 syncopal episodes yesterday both of them were orthostatic. He came into the emergency room was in renal failure. On my evaluation he was laying down in bed, feeling better, receiving IV fluid, reported no chest pain or shortness of breath. No palpitation. Home Medications & Allergies Allergies: Coded Allergies: hydromorphone (Verified Allergy, Unknown, 04/13/23) MAKES HIM SICK Home Medication List Reviewed: Yes YJM-[id number]-Pjfrxl Hx Patient Social History Marital Status: Employed/Student: employed 2nd [employer] Smoke Exposure: No Recent Hopitalizations: No Alcohol Use?: No Immunizations Up To Date Tetanus Booster (TDap): Unknown Date of Influenza Vaccine: Jun 21, 2020 Past Medical History Discussed below Family Medical History Significant Family History: No Pertinent Family Hx Review of Systems-General Review of Systems Constitutional: see HPI; No chills, No fever; weakness (On standing), other (Extreme fatigue on standing) EENTM: see HPI, nose congestion; No hearing loss, No blurred vision, No vision loss Respiratory: see HPI; No cough, No short of breath Cardiovascular: see HPI; No chest pain; edema, Hx of Intervention; No palpitations Gastrointestinal: see HPI; No abdominal pain, No constipation, No diarrhea, No nausea, No vomiting Genitourinary: see HPI; No dysuria, No frequency Musculoskeletal: no symptoms reported, see HPI Skin: no symptoms reported, see HPI Psychiatric/Neurological: Denies Headache Reviewed Test Results Reviewed Test Results Lab Laboratory Tests Test 04/13/23 16:20 04/13/23 19:54 04/14/23 04:59 04/14/23 10:02 Range/Units Glucometer 133 H 178 H 213 H 70-110 MG/DL White Blood Count 7.9 4.3-11.0 10^3/uL Red Blood Count 4.20 L 4.30-5.52 10^6/uL Hemoglobin 12.7 L 13.3-17.7 g/dL Hematocrit 38 L 40-54 % Mean Corpuscular Volume 90 80-99 fL Mean Corpuscular Hemoglobin 30 25-34 pg Mean Corpuscular Hemoglobin Concent 34 32-36 g/dL Red Cell Distribution Width 13.1 10.0-14.5 % Platelet Count 421 H 130-400 10^3/uL Mean Platelet Volume 10.2 9.0-12.2 fL Immature Granulocyte % (Auto) 0 % Neutrophils (%) (Auto) 63 42-75 % Lymphocytes (%) (Auto) 25 12-44 % Monocytes (%) (Auto) 10 0-12 % Eosinophils (%) (Auto) 1 0-10 % Basophils (%) (Auto) 1 0-10 % Neutrophils # (Auto) 5.0 1.8-7.8 10^3/uL Lymphocytes # (Auto) 2.0 1.0-4.0 10^3/uL Monocytes # (Auto) 0.8 0.0-1.0 10^3/uL Eosinophils # (Auto) 0.1 0.0-0.3 10^3/uL Basophils # (Auto) 0.1 0.0-0.1 10^3/uL Immature Granulocyte # (Auto) 0.0 0.0-0.1 10^3/uL Sodium Level 137 135-145 MMOL/L Potassium Level 3.3 L 3.6-5.0 MMOL/L Chloride Level 101 98-107 MMOL/L Carbon Dioxide Level 24 21-32 MMOL/L Anion Gap 12 5-14 MMOL/L Blood Urea Nitrogen 38 H 7-18 MG/DL Creatinine 2.13 H 0.60-1.30 MG/DL Estimat Glomerular Filtration Rate 33 BUN/Creatinine Ratio 18 Glucose Level 249 H 70-105 MG/DL Calcium Level 9.1 8.5-10.1 MG/DL Corrected Calcium 9.3 8.5-10.1 MG/DL Total Bilirubin 0.3 0.1-1.0 MG/DL Aspartate Amino Transf (AST/SGOT) 11 5-34 U/L Alanine Aminotransferase (ALT/SGPT) 16 0-55 U/L Alkaline Phosphatase 68 40-136 U/L Troponin I 0.035 H <0.028 NG/ML Total Protein 6.5 6.4-8.2 GM/DL Albumin 3.8 3.2-4.5 GM/DL Physical Exam Physical Exam Vital Signs Vital Signs - First Documented 04/13/23 13:13 Temp 35.7 Pulse 75 Resp 18 B/P (MAP) 147/90 (109) Pulse Ox 99 O2 Delivery Room Air Capillary Refill : Less Than 3 Seconds Height, Weight, BMI Height: '" Weight: lbs. oz. kg; 32.32 BMI Method: General Appearance: No Apparent Distress, WD/WN, Obese Eyes: Bilateral Eye Normal Inspection, Bilateral Eye PERRL, Bilateral Eye EOMI HEENT: PERRL/EOMI, Normal ENT Inspection; No Scleral Icterus (L), No Scleral Icterus (R) Neck: Normal Inspection, Non Tender, Supple; No Carotid Bruit, No Lymphadenopathy (L), No Lymphadenopathy (R) Respiratory: Chest Non Tender, Lungs Clear, Normal Breath Sounds, No Accessory Muscle Use, No Respiratory Distress Cardiovascular: Regular Rate, Rhythm, No Edema, No Gallop, No JVD, No Murmur, Normal Peripheral Pulses Gastrointestinal: Normal Bowel Sounds, No Organomegaly, Non Tender, Soft, Distended (Mildly) Rectal: Deferred Back: Normal Inspection Extremity: Normal Capillary Refill, Non Tender, No Calf Tenderness, Pedal Edema (trace) Neurologic/Psychiatric: Alert, Oriented x3, No Motor/Sensory Deficits, Normal Mood/Affect Skin: Normal Color, Warm/Dry Lymphatic: No Adenopathy A/P-Cardiology Admission Diagnosis Syncope Paroxysmal atrial fibrillation Coronary artery disease Hypertension Assessment/Plan Syncope, recurrent orthostatic hypotension Probably underlying hypovolemia and due to his medication. Spironolactone and amlodipine were discontinued 2 days ago I will discontinue Cardizem CD and Lasix Continue on metoprolol 25 mg Monitor blood pressure 2D echo was done on April 13, 2023 showing moderate LVH with EF 55 to 60%. No pericardial effusion. Paroxysmal atrial fibrillation, In October 2021 patient was noted to be in atrial fibrillation with controlled rate, heart rate 96. He is maintained on Cardizem CD 180 mg daily. We discussed the 3Rs of management. I would continue on Cardizem Toprol XL Patient was started back on Eliquis on September 24, 2021. Patient was scheduled for electrical cardioversion on November 19, preop EKG showed sinus rhythm. He was started on amiodarone loading dose and continuation. s/p LInq implantation on March 18, 2022. Review of his loop monitor revealed multiple episodes of atrial fibrillation lasting between a few minutes up to 3 hours. Status post A-fib ablation done by Dr. Leon on March 30, 2023. Complicated by pericardial effusion and pericardiocentesis Restart Eliquis Currently doing well. Coronary artery disease, [facility] on 08/13/21 after having abnormal stress test showing severe stenosis at the mid right coronary artery with successful primary stenting using adis point stent 3.5 x 15 mm postdilated to 4.0 mm noncompliant balloon with excellent results. Moderate to severe stenosis in the proximal LAD followed by mild aneurysmal dilatation will be staged for later intervention. Mild disease in the circumflex artery Cardiac catheterization was done on September 24, 2021 demonstrated severe stenosis of the proximal LAD with successful primary stenting using skypoint stent 3 x 23 mm expanded to 3.1 mm with excellent results, patient stable in the mid right coronary artery with mild disease nonobstructive disease distal. Maintained on Plavix, and Eliquis. Discontinue aspirin Acute renal insufficiency, underlying chronic renal insufficiency. Receiving IV fluid, slight improvement Continue to monitor renal function Peripheral edema, reporting improvement at this time. Was on Lasix 80 mg daily, currently on hold 2D echo was done in May 2022 showing normal LV size with ejection fraction of 60 to 65%, grade 1 diastolic dysfunction, PA pressure 20 mmHg. Hypertension, orthostatic hypotension Monitor blood pressure Hyperlipidemia, maintained on Lipitor 40 mg daily, lipid profile was done on September 24, 2021 showing total cholesterol 158, triglycerides 74, HDL 63, LDL 78. 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 Continue to monitor LORIE CLEMONS MD Apr 14, 2023 13:32
--- NOTE | 2023-04-14 16:09 | Physical Therapy Evaluation ---
PT Evaluation-General Medical Diagnosis Admission Date Apr 13, 2023 at 15:12 Medical Diagnosis: [place], orthostatic hypotension Onset Date: Apr 14, 2023 Therapy Diagnosis Therapy Diagnosis: Gait deficit, strength deficit Precautions Precautions/Isolations: Fall Prevention, Standard Precautions Weight Bear Status Right Lower Extremity: Right Weight Bearing/Tolerated Left Lower Extremity: Left Weight Bearing/Tolerated Referral Physician: Dr. Busby Reason for Referral: Evaluation/Treatment Medical History Reviewed History: Yes Social History Home: Multilevel Current Living Status: Alone Entry Into Home: Stairs With Railing PT Steps Into Home: 4 PT Steps Inside Home: 14 Prior Prior Level of Function SCALE: Activities may be completed with or without assistive devices. 8-Eyypthqdhu-fdxopeu completes the activity by him/herself with no assistance from a helper. 5-Set-up or Clean-up Assistance-helper sets up or cleans up; patient completes activity. [place] assists only prior to or following the activity. 4-Supervision or Touching Assistance-helper provides verbal cues and/or touching/steadying and/or contact guard assistance as patient completes activity. Assistance may be provided throughout the activity or intermittently. 3-Partial/Moderate Assistance-helper does LESS THAN HALF the effort. [place] lifts, holds or supports trunk or limbs, but provides less than half the effort. 2-Substantial/Maximal Assistance-helper does MORE THAN HALF the effort. [place] lifts or holds trunk or limbs and provides more than half the effort. 3-Efpyqhmou-dsiibc does ALL the effort. Patient does none of the effort to complete the activity. Or, the assistance of 2 or more helpers is required for the patient to complete the activity. If activity was not attempted, code reason: 7-Patient Refused. 9-Not Applicable-not attempted and the patient did not perform the activity before the current illness, exacerbation or injury. 10-Not Attempted due to Environmental Limitations-(lack of equipment, weather restraints, etc.). 88-Not Attempted due to Medical Conditions or Safety Concerns. Bed Mobility: 6 Transfers (B,C,W/C): 6 Gait: 6 Stairs: 6 Indoor Mobility (Ambulation): Independent Stairs: Independent Prior Devices Use: None PT Evaluation-Current Subjective Patient lying supine in bed upon PT arrival, agreeable to treatment. Patient rates pain at 0/10 currently. Objective Patient Orientation: Person, Place, Time, Situation ROM/Strength ROM Lower Extremities WFLs BLES all planes Strength Lower Extremities 4/5 BLEs all planes Sensory Vision: Functional Hearing: Functional Sensation Right Lower Extremit: Intact Sensation Left Lower Extremity: Intact Transfers Roll Left to Right (QC): 6 Sit to Lying (QC): 6 Lying to Sitting/Side of Bed(Q: 6 Sit to Stand (QC): 6 Chair/Xdd-yu-Psory Xfer(QC): 6 Toilet Transfer (QC): 6 Gait Does the Patient Walk?: Yes Mode of Locomotion: Walk Anticipated Mode of Locomotion: Walk Walk 10 feet (QC): 6 Walk 50 ft with 2 Turns(QC): 6 Walk 150 ft (QC): 6 Distance: 500' Gait Assistive Device: None Balance Sitting Static: Normal Sitting Dynamic: Normal Standing Static: Normal Standing Dynamic: Normal Assessment/Needs Patient at baseline for PLOF. No further PT needed. 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
[2023-04-14] MEDS: APIXABAN 5 MG TABLET PO SCH (20:13)
[2023-04-14] MEDS: PANTOPRAZOLE 40 MG (PROTONIX) TAB PO SCH (20:13)
[2023-04-15 03:10] VITALS: BP 144/77
[2023-04-15 05:41] LABS: BASOPHILS # (AUTO) 0.1 10^3/uL (0.0-0.1); BASOPHILS % (AUTO) 1 % (0-10); EOSINOPHILS # (AUTO) 0.1 10^3/uL (0.0-0.3); EOSINOPHILS % (AUTO) 2 % (0-10); HEMATOCRIT 36 % (40-54); LYMPHOCYTES # (AUTO) 2.3 10^3/uL (1.0-4.0); LYMPHOCYTES % (AUTO) 29 % (12-44); MEAN CORPUSCULAR HEMOGLOBIN 30 pg (25-34); MEAN CORPUSCULAR HGB CONC 33 g/dL (32-36); MEAN CORPUSCULAR VOLUME 90 fL (80-99); MEAN PLATELET VOLUME 10.6 fL (9.0-12.2); MONOCYTES # (AUTO) 0.7 10^3/uL (0.0-1.0); MONOCYTES % (AUTO) 10 % (0-12); NEUTROPHILS # (AUTO) 4.5 10^3/uL (1.8-7.8); NEUTROPHILS % (AUTO) 58 % (42-75); PLATELET COUNT 397 10^3/uL (130-400); WHITE BLOOD COUNT 7.7 10^3/uL (4.3-11.0)
[2023-04-15 05:47] LABS: ALBUMIN 3.6 GM/DL (3.2-4.5); POTASSIUM 3.1 MMOL/L (3.6-5.0)
[2023-04-15 05:48] LABS: CALCIUM 8.9 MG/DL (8.5-10.1)
[2023-04-15 05:51] LABS: BILIRUBIN,TOTAL 0.3 MG/DL (0.1-1.0)
[2023-04-15 05:53] LABS: CREATININE SERUM 1.67 MG/DL (0.60-1.30)
[2023-04-15] MEDS: KCL 20 MEQ TAB (K-DUR) PO SCH (06:18)
[2023-04-15] MEDS: inSUlin ASPART (NovoLOG) 1 UNIT/0.01 ML (CHARGE PER UNIT) SC SCH ×4 (06:19→11:34)
[2023-04-15] MEDS: POTASSIUM CL 10MEQ/50ML IVPB 50 ML IV SCH ×2 (06:33→07:38)
[2023-04-15] MEDS ORDERED: KCL 20 MEQ TAB (K-DUR) PO SCH (07:00)
[2023-04-15 07:41] VITALS: BP 146/83
[2023-04-15] MEDS: APIXABAN 5 MG TABLET PO SCH (08:34)
[2023-04-15] MEDS: PANTOPRAZOLE 40 MG (PROTONIX) TAB PO SCH (08:35)
[2023-04-15] MEDS: CLOPIDOGREL 75 MG TABLET PO SCH (08:35)
[2023-04-15] MEDS: SENNOSIDES 8.6 MG (SENOKOT) TAB PO SCH (08:40)
[2023-04-15] MEDS: DOCUSATE SODIUM 100 MG CAPSULE PO SCH (08:40)
--- NOTE | 2023-04-15 08:52 | Cardiology Progress Note ---
Subjective Date Seen by Provider: Apr 15, 2023 Time Seen by Provider: 08:52 Subjective/Events-last exam Patient was seen at bedside, laying down comfortably, no chest pain was reported, no syncope was reported Review of Systems General: No Chills, No Night Sweats, No Fatigue, No Malaise, No Appetite, No Other HEENT: No Head Aches, No Visual Changes, No Eye Pain, No Ear Pain, No Dysphasia, No Sinus Congestion, No Post Nasal Drip, No Sore Throat, No Other Pulmonary: No Dyspnea, No Cough, No Pleuritic Chest Pain, No Other Cardiovascular: No: Chest Pain, Palpitations, Orthopnea, Paroxysmal Noc. Dyspnea, Edema, Lt Headedness, Other Objective-Cardiology Exam Last Set of Vital Signs Vital Signs 04/15/23 07:41 Temp 36.3 Pulse 70 Resp 24 B/P (MAP) 146/83 (104) Pulse Ox 95 O2 Delivery Room Air I&O Intake and Output 04/15/23 00:00 Intake Total 2660 ml Output Total 1550 ml Balance 1110 ml Intake Oral 1660 ml IV Total 1000 ml Output Urine Total 1550 ml # Voids 2 # Bowel Movements 2 General: Alert, Oriented X3, Cooperative HEENT: Atraumatic, PERRLA Neck: Supple, No JVD, No Thyromegaly Lungs: Clear to Auscultation, Normal Air Movement Heart: Regular Rate, Normal S1, Normal S2, No Murmurs Abdomen: Normal Bowel Sounds, Soft, No Tenderness, No Hepatosplenomegaly, No Masses Extremities: No Clubbing, No Cyanosis, No Edema, Normal Pulses, No Tenderness/Swelling Skin: No Rashes, No Breakdown, No Significant Lesion Neuro: Normal Gait, Normal Speech, Strength at 5/5 X4 Ext, Normal Tone, Sensation Intact Psych/Mental Status: Mental Status NL, Mood NL Results Lab Laboratory Tests 04/15/23 05:12 A/P-Cardiology Admission Diagnosis Syncope Paroxysmal atrial fibrillation Coronary artery disease Hypertension Assessment/Plan Syncope, recurrent orthostatic hypotension Probably underlying hypovolemia and due to his medication. Spironolactone and amlodipine were discontinued 2 days ago I will discontinue Cardizem CD and Lasix Continue on metoprolol 25 mg Patient is doing better. No further syncope reported Okay for discharge and follow-up as an outpatient 2D echo was done on April 13, 2023 showing moderate LVH with EF 55 to 60%. No pericardial effusion. Paroxysmal atrial fibrillation, In October 2021 patient was noted to be in atrial fibrillation with controlled rate, heart rate 96. He is maintained on Cardizem CD 180 mg daily. We discussed the 3Rs of management. I would continue on Cardizem Toprol XL Patient was started back on Eliquis on September 24, 2021. Patient was scheduled for electrical cardioversion on November 19, preop EKG showed sinus rhythm. He was started on amiodarone loading dose and continuation. s/p LInq implantation on March 18, 2022. Review of his loop monitor revealed multiple episodes of atrial fibrillation lasting between a few minutes up to 3 hours. Status post A-fib ablation done by Dr. Leon on March 30, 2023. Complicated by pericardial effusion and pericardiocentesis Restart Eliquis Currently doing well. Coronary artery disease, [facility] on 08/13/21 after having abnormal stress test showing severe stenosis at the mid right coronary artery with successful primary stenting using adis point stent 3.5 x 15 mm postdilated to 4.0 mm noncompliant balloon with excellent results. Moderate to severe stenosis in the proximal LAD followed by mild aneurysmal dilatation will be staged for later intervention. Mild disease in the circumflex artery Cardiac catheterization was done on September 24, 2021 demonstrated severe stenosis of the proximal LAD with successful primary stenting using skypoint stent 3 x 23 mm expanded to 3.1 mm with excellent results, patient stable in the mid right coronary artery with mild disease nonobstructive disease distal. Maintained on Plavix, and Eliquis. Discontinue aspirin Acute renal insufficiency, underlying chronic renal insufficiency. Receiving IV fluid, slight improvement Continue to monitor renal function Peripheral edema, reporting improvement at this time. Was on Lasix 80 mg daily, currently on hold 2D echo was done in May 2022 showing normal LV size with ejection fraction of 60 to 65%, grade 1 diastolic dysfunction, PA pressure 20 mmHg. Hypertension, orthostatic hypotension Monitor blood pressure Hyperlipidemia, maintained on Lipitor 40 mg daily, lipid profile was done on September 24, 2021 showing total cholesterol 158, triglycerides 74, HDL 63, LDL 78. 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 Continue to monitor LORIE CLEMONS MD Apr 15, 2023 08:52
[2023-04-15] MEDS ORDERED: METO-351 PO (08:54)
[2023-04-15] MEDS ORDERED: AMIODARONE 200 MG TABLET PO SCH (09:00)
[2023-04-15] MEDS ORDERED: TAMSULOSIN 0.4 MG (FLOMAX) CAP PO SCH (09:00)
[2023-04-15] MEDS ORDERED: COLCHICINE 0.6 MG TABLET PO SCH (09:00)
[2023-04-15] MEDS ORDERED: ASPIRIN enteric coated 81MG TABLET PO SCH (09:00)
[2023-04-15] MEDS ORDERED: CLOPIDOGREL 75 MG TABLET PO SCH (09:00)
[2023-04-15] MEDS ORDERED: meTOproloL SUCCINATE 50 MG (TOPROL XL) TAB PO SCH (09:00)
[2023-04-15] MEDS ORDERED: POTA-177 PO (11:20)
[2023-04-15] MEDS: NS IV 1000 ML 1,000 ML IV SCH (11:21)
--- NOTE | 2023-04-15 11:25 | Discharge Summary ---
Diagnosis/Chief Complaint Date of Admission Apr 13, 2023 at 15:12 Date of Discharge Discharge Date: Apr 15, 2023 Discharge Diagnosis Acute Kidney Injury -On admission, BUN was elevated at 52, creatinine at 2.74, eGFR of 25 -Kidney function has improved with IV fluid supplementation -Continue NaCl at 70 mls/hr -Continue to monitor with serial chemistry labs Orthostatic Hypotension -Vitals showed severe orthostatic changes on arrival to the ER -IV fluid supplementation as concomitant FEDERICA suggests dehydration prior to arrival -Physical therapy consult ordered to evaluate for improvement in orthostatic vital signs -Possibly due to recent prescription of chlorthalidone and spironolactone s/p pericardiocentesis as symptom onset began shortly after beginning them. Elevated Troponin -Previous history of cardiac stent placement -Troponin is trending downward -Likely left over from recent cardiac intervention -Echocardiogram showed moderate concentric hypertrophy of the left ventricle, but ejection fraction of 55-60% -Continue to monitor for symptoms suggestive of SC Type II Diabetes -Continue sliding scale insulin, Novolog -Continue Levemir per home dosing -Monitor with serial glucometer readings Reason Hospital Visit Discharge Summary Discharge Physical Examination Allergies: Coded Allergies: hydromorphone (Verified Allergy, Unknown, 04/13/23) MAKES HIM SICK Vitals & I&Os Vital Signs Date Time Temp Pulse Resp B/P (MAP) Pulse Ox O2 Delivery O2 Flow Rate FiO2 04/15/23 14:34 04/15/23 11:56 36.0 66 18 Room Air 04/15/23 10:04 95 General Appearance: Alert, Oriented X3, Cooperative Respiratory: Clear to Auscultation Cardiovascular: Regular Rate Psych/Mental Status: Mental Status NL Hospital Course Was the Problem List Reviewed?: Yes Progress Note Our patient is a 67 yo M with a past medical history of atrial fibrillation, cardiac stenting, and type II diabetes that was admitted to the hospital for severe orthostatic hypotension as well as an acute kidney injury. On 03/30, he underwent a cardiac ablation in [place] and subsequently developed a pericardial effusion that was treated with emergency pericardiocentesis. On discharge he was placed on chlorthalidone, spironolactone, colchicine, and ibuprofen and began to feel lightheaded upon standing soon thereafter. He spoke with the doctor that saw him in [place] and was advised to stop his new blood pressure medications but he still experienced similar symptoms in the days following. Initial chest x-ray was unremarkable and ultrasound examination showed no significant pericardial effusion. Since admission, he has been on continuous IV fluid supplementation and his kidney function continued to improve. As did his postural hypotension. Physical therapy was consulted and noted that by day two of admission he was back at his baseline for level of function. Cardiology plans to discontinue cardizem and lasix and continue with metoprolol for the time being. They have also noted that they will schedule a sleep study to perform on an outpatient basis due to the patient's risk factors for obstructive sleep apnea. On discharge he will see Dr. Jaime for an outpatient hospital follow-up. THIAGO CRESPO Labs (last 24 hrs) Laboratory Tests 04/13/23 13:20: White Blood Count 10.8, Red Blood Count 4.69, Hemoglobin 14.2, Hematocrit 42, Mean Corpuscular Volume 89, Mean Corpuscular Hemoglobin 30, Mean Corpuscular Hemoglobin Concent 34, Red Cell Distribution Width 12.8, Platelet Count 479H, Mean Platelet Volume 10.2, Immature Granulocyte % (Auto) 0, Neutrophils (%) (Auto) 72, Lymphocytes (%) (Auto) 19, Monocytes (%) (Auto) 7, Eosinophils (%) (Auto) 0, Basophils (%) (Auto) 1, Neutrophils # (Auto) 7.8, Lymphocytes # (Auto) 2.1, Monocytes # (Auto) 0.8, Eosinophils # (Auto) 0.0, Basophils # (Auto) 0.1, Immature Granulocyte # (Auto) 0.0, Prothrombin Time 14.8H, INR Comment 1.1, Activated Partial Thromboplast Time 28, Sodium Level 137, Potassium Level 3.6, Chloride Level 98, Carbon Dioxide Level 23, Anion Gap 16H, Blood Urea Nitrogen 52H, Creatinine 2.74H, Estimat Glomerular Filtration Rate 25, BUN/Creatinine Ratio 19, Glucose Level 145H, Calcium Level 10.0, Corrected Calcium 9.8, Total Bilirubin 0.5, Aspartate Amino Transf (AST/SGOT) 16, Alanine Aminotransferase (ALT/SGPT) 20, Alkaline Phosphatase 77, Troponin I 0.050H, Total Protein 7.5, Albumin 4.3 04/13/23 16:20: Glucometer 133H 04/13/23 19:54: Glucometer 178H 04/14/23 04:59: White Blood Count 7.9, Red Blood Count 4.20L, Hemoglobin 12.7L, Hematocrit 38L, Mean Corpuscular Volume 90, Mean Corpuscular Hemoglobin 30, Mean Corpuscular Hemoglobin Concent 34, Red Cell Distribution Width 13.1, Platelet Count 421H, Mean Platelet Volume 10.2, Immature Granulocyte % (Auto) 0, Neutrophils (%) (Auto) 63, Lymphocytes (%) (Auto) 25, Monocytes (%) (Auto) 10, Eosinophils (%) (Auto) 1, Basophils (%) (Auto) 1, Neutrophils # (Auto) 5.0, Lymphocytes # (Auto) 2.0, Monocytes # (Auto) 0.8, Eosinophils # (Auto) 0.1, Basophils # (Auto) 0.1, Immature Granulocyte # (Auto) 0.0, Sodium Level 137, Potassium Level 3.3L, Chloride Level 101, Carbon Dioxide Level 24, Anion Gap 12, Blood Urea Nitrogen 38H, Creatinine 2.13H, Estimat Glomerular Filtration Rate 33, BUN/Creatinine Ratio 18, Glucose Level 249H, Calcium Level 9.1, Corrected Calcium 9.3, Total Bilirubin 0.3, Aspartate Amino Transf (AST/SGOT) 11, Alanine Aminotransferase (ALT/SGPT) 16, Alkaline Phosphatase 68, Troponin I 0.035H, Total Protein 6.5, Albumin 3.8 04/14/23 10:02: Glucometer 213H 04/14/23 15:31: Glucometer 225H 04/14/23 20:57: Glucometer 215H 04/15/23 05:12: White Blood Count 7.7, Red Blood Count 4.04L, Hemoglobin 12.0L, Hematocrit 36L, Mean Corpuscular Volume 90, Mean Corpuscular Hemoglobin 30, Mean Corpuscular Hemoglobin Concent 33, Red Cell Distribution Width 12.8, Platelet Count 397, Mean Platelet Volume 10.6, Immature Granulocyte % (Auto) 0, Neutrophils (%) (Auto) 58, Lymphocytes (%) (Auto) 29, Monocytes (%) (Auto) 10, Eosinophils (%) (Auto) 2, Basophils (%) (Auto) 1, Neutrophils # (Auto) 4.5, Lymphocytes # (Auto) 2.3, Monocytes # (Auto) 0.7, Eosinophils # (Auto) 0.1, Basophils # (Auto) 0.1, Immature Granulocyte # (Auto) 0.0, Sodium Level 138, Potassium Level 3.1L, Chloride Level 104, Carbon Dioxide Level 24, Anion Gap 10, Blood Urea Nitrogen 24H, Creatinine 1.67H, Estimat Glomerular Filtration Rate 45, BUN/Creatinine Ratio 14, Glucose Level 157H, Calcium Level 8.9, Corrected Calcium 9.2, Total Bilirubin 0.3, Aspartate Amino Transf (AST/SGOT) 13, Alanine Aminotransferase (ALT/SGPT) 16, Alkaline Phosphatase 60, Total Protein 6.0L, Albumin 3.6 04/15/23 10:38: Glucometer 79 Pending Labs Laboratory Tests 04/13/23 13:20: White Blood Count 10.8, Red Blood Count 4.69, Hemoglobin 14.2, Hematocrit 42, Mean Corpuscular Volume 89, Mean Corpuscular Hemoglobin 30, Mean Corpuscular Hemoglobin Concent 34, Red Cell Distribution Width 12.8, Platelet Count 479, Mean Platelet Volume 10.2, Immature Granulocyte % (Auto) 0, Neutrophils (%) (Auto) 72, Lymphocytes (%) (Auto) 19, Monocytes (%) (Auto) 7, Eosinophils (%) (Auto) 0, Basophils (%) (Auto) 1, Neutrophils # (Auto) 7.8, Lymphocytes # (Auto) 2.1, Monocytes # (Auto) 0.8, Eosinophils # (Auto) 0.0, Basophils # (Auto) 0.1, Immature Granulocyte # (Auto) 0.0, Prothrombin Time 14.8, INR Comment 1.1, Activated Partial Thromboplast Time 28, Sodium Level 137, Potassium Level 3.6, Chloride Level 98, Carbon Dioxide Level 23, Anion Gap 16, Blood Urea Nitrogen 52, Creatinine 2.74, Estimat Glomerular Filtration Rate 25, BUN/Creatinine Ratio 19, Glucose Level 145, Calcium Level 10.0, Corrected Calcium 9.8, Total Bilirubin 0.5, Aspartate Amino Transf (AST/SGOT) 16, Alanine Aminotransferase (ALT/SGPT) 20, Alkaline Phosphatase 77, Troponin I 0.050, Total Protein 7.5, Albumin 4.3 04/13/23 16:20: Glucometer 133 04/13/23 19:54: Glucometer 178 04/14/23 04:59: White Blood Count 7.9, Red Blood Count 4.20, Hemoglobin 12.7, Hematocrit 38, Mean Corpuscular Volume 90, Mean Corpuscular Hemoglobin 30, Mean Corpuscular Hemoglobin Concent 34, Red Cell Distribution Width 13.1, Platelet Count 421, Mean Platelet Volume 10.2, Immature Granulocyte % (Auto) 0, Neutrophils (%) (Auto) 63, Lymphocytes (%) (Auto) 25, Monocytes (%) (Auto) 10, Eosinophils (%) (Auto) 1, Basophils (%) (Auto) 1, Neutrophils # (Auto) 5.0, Lymphocytes # (Auto) 2.0, Monocytes # (Auto) 0.8, Eosinophils # (Auto) 0.1, Basophils # (Auto) 0.1, Immature Granulocyte # (Auto) 0.0, Sodium Level 137, Potassium Level 3.3, Chloride Level 101, Carbon Dioxide Level 24, Anion Gap 12, Blood Urea Nitrogen 38, Creatinine 2.13, Estimat Glomerular Filtration Rate 33, BUN/Creatinine Ratio 18, Glucose Level 249, Calcium Level 9.1, Corrected Calcium 9.3, Total Bilirubin 0.3, Aspartate Amino Transf (AST/SGOT) 11, Alanine Aminotransferase (ALT/SGPT) 16, Alkaline Phosphatase 68, Troponin I 0.035, Total Protein 6.5, Albumin 3.8 04/14/23 10:02: Glucometer 213 04/14/23 15:31: Glucometer 225 04/14/23 20:57: Glucometer 215 04/15/23 05:12: White Blood Count 7.7, Red Blood Count 4.04, Hemoglobin 12.0, Hematocrit 36, Mean Corpuscular Volume 90, Mean Corpuscular Hemoglobin 30, Mean Corpuscular Hemoglobin Concent 33, Red Cell Distribution Width 12.8, Platelet Count 397, Mean Platelet Volume 10.6, Immature Granulocyte % (Auto) 0, Neutrophils (%) (Auto) 58, Lymphocytes (%) (Auto) 29, Monocytes (%) (Auto) 10, Eosinophils (%) (Auto) 2, Basophils (%) (Auto) 1, Neutrophils # (Auto) 4.5, Lymphocytes # (Auto) 2.3, Monocytes # (Auto) 0.7, Eosinophils # (Auto) 0.1, Basophils # (Auto) 0.1, Immature Granulocyte # (Auto) 0.0, Sodium Level 138, Potassium Level 3.1, Chloride Level 104, Carbon Dioxide Level 24, Anion Gap 10, Blood Urea Nitrogen 24, Creatinine 1.67, Estimat Glomerular Filtration Rate 45, BUN/Creatinine Ratio 14, Glucose Level 157, Calcium Level 8.9, Corrected Calcium 9.2, Total Bilirubin 0.3, Aspartate Amino Transf (AST/SGOT) 13, Alanine Aminotransferase (ALT/SGPT) 16, Alkaline Phosphatase 60, Total Protein 6.0, Albumin 3.6 04/15/23 10:38: Glucometer 79 Discharge Home Medications: Active Scripts Active Potassium Chloride 10 Meq Tab.er.prt 10 Meq PO DAILY Toprol Xl (Metoprolol Succinate) 25 Mg Tab.er.24h 25 Mg PO DAILY Reported Basaglar Kwikpen U-100 (Insulin Glargine,Hum.rec.anlog) 100 Unit/Ml (3 Ml) Insuln.pen 24 Unit SQ DAILY Novolog Flexpen (Insulin Aspart) 100 Unit/Ml (3 Ml) Solution 10 Units SQ BID WITH MEALS Metformin HCl ER (Metformin HCl) 500 Mg Tab.er.24h 1,000 Mg PO BID TAKES 2 (500MG) TABS Clopidogrel (Clopidogrel Bisulfate) 75 Mg Tablet 75 Mg PO DAILY Amiodarone HCl 200 Mg Tablet 200 Mg PO DAILY Flomax (Tamsulosin HCl) 0.4 Mg Cap 0.4 Mg PO DAILY Colchicine 0.6 Mg Tablet 0.6 Mg PO DAILY Pantoprazole Sodium 40 Mg Tablet.dr 40 Mg PO BID Eliquis (Apixaban) 5 Mg Tablet 5 Mg PO BID Victoza 3-Leonardo (Liraglutide) 0.6 Mg/0.1 Ml Pen.injctr 1.8 Mg SQ 1800 W/DINNER Atorvastatin Calcium 40 Mg Tablet 40 Mg PO DAILY Instructions to patient/family Please see electronic discharge instructions given to patient. Diagnosis/Problems Diagnosis/Problems (1) Syncope Status: Acute Qualifiers: Qualified Codes: R55 - Syncope and collapse (2) FEDERICA (acute kidney injury) (3) Orthostatic hypotension Status: Acute [facility] JAIME DO Apr 15, 2023 11:25
[2023-04-15 11:56] VITALS: BP 143/74
--- NOTE | 2023-04-15 12:58 | Progress Note ---
THIAGO CRESPO 04/15/23 1258: Progress Note Our patient is a 67 yo M with a past medical history of atrial fibrillation, cardiac stenting, and type II diabetes that was admitted to the hospital for severe orthostatic hypotension as well as an acute kidney injury. On 03/30, he underwent a cardiac ablation in [place] and subsequently developed a p ericardial effusion that was treated with emergency pericardiocentesis. On discharge he was placed on chlorthalidone, spironolactone, colchicine, and ibuprofen and began to feel lightheaded upon standing soon thereafter. He spoke with the doctor that saw him in [place] and was advised to stop his new blood pressure medications but he still experienced similar symptoms in the days following. Initial chest x-ray was unremarkable and ultrasound examination showed no significant pericardial effusion. Since admission, he has been on continuous IV fluid supplementation and his kidney function continued to improve. As did his postural hypotension. Physical therapy was consulted and noted that by day two of admission he was back at his baseline for level of fun ction. Cardiology plans to discontinue cardizem and lasix and continue with metoprolol for the time being. They have also noted that they will schedule a sleep study to perform on an outpatient basis due to the patient's risk factors for obstructive sleep apnea. On discharge he will see Dr. Jaime for an outpatient hospital follow-up. GRETEL JAIME DO 04/16/23 0433: Supervisory-Addendum Brief Verification & Attestation Participated in pt care: history, MDM, physical Personally performed: exam, history, MDM, supervision of care Care discussed with: Medical Student Procedures: n/a Results interpretation: Verified all documentation Verification and Attestation of Medical Student E/M Service A medical student performed and documented this service in my presence. I reviewed and verified all information documented by the medical student and made modifications to such information, when appropriate. I personally performed the physical exam and medical decision making. Gretel Jaime Apr 16, 2023,04:33 THIAGO CRESPO Apr 15, 2023 12:58 GRETEL JAIME DO Apr 16, 2023 04:33
== END 2023-04-15 11:20 | disposition home or self-care (01) ==
LOC: EDUNIT# 13:07 → ER 13:10 → CSD 15:12 → UNDOADMOB 15:12 → CSD 15:49 → UNDODISOB 04-15 11:20
PROVIDERS: ADMIT Internal Medicine; ATTEND Internal Medicine
DX: N17.9 Acute kidney failure, unspecified (principal); I95.1 Orthostatic hypotension; R77.8 Other specified abnormalities of plasma proteins; E11.9 Type 2 diabetes mellitus without complications; I48.0 Paroxysmal atrial fibrillation; I25.10 Atherosclerotic heart disease of native coronary artery without angina pectoris; R60.1 Generalized edema; I10 Essential (primary) hypertension; I65.23 Occlusion and stenosis of bilateral carotid arteries; Z79.4 Long term (current) use of insulin; Z79.899 Other long term (current) drug therapy; Z79.01 Long term (current) use of anticoagulants; Z79.84 Long term (current) use of oral hypoglycemic drugs
CPT/HCPCS: 71045; 80053 ×3; 82947 ×3; 84484 ×2; 85025 ×3; 85610; 85730; 93005 ×2; 93041; 94760 ×2; 96361 ×2; 96366; 96375; 97162; 99284; C8929; G0378; 36415; 93306; 96360

== ENCOUNTER → 2023-05-07 | Outpatient (CLI) | payer MEDICARE ==
[~2023-05-07] MED LIST changes: +CHLO50TA2 PO; +COLC0.6T59 PO; +FURO80TA3 PO; +IBUP-1779 PO; +METF-865 PO; +METO50TA7 PO; +POTA-177 PO; +POTA-179 PO; +SPIR25TA5 PO
[2023-05-07 13:41] LABS: CALCIUM 7.8 MG/DL (8.5-10.1); CREATININE SERUM 1.67 MG/DL (0.60-1.30); POTASSIUM 3.6 MMOL/L (3.6-5.0)
== END ==
LOC: LAB 13:01
PROVIDERS: ATTEND Physician Assistant
DX: E87.6 Hypokalemia (principal); I48.0 Paroxysmal atrial fibrillation
CPT/HCPCS: 36415; 80048